=== PATIENT | female | born 1965 | race Caucasian/White ===

== ENCOUNTER → 2017-08-11 | Outpatient (CLI) | payer MEDICARE ==
[~2017-08-11] MED LIST: CRAN1TAB2 PO; CRAN400C PO; GLIP10TA9 PO; HYDR-4064 PO; IBUP-2077 PO; METF10004 PO; METR500T PO; MULT-1205 PO; PARO40TA72 PO; PREN-61 PO; QUET300XR PO; TRAZ150T79 PO
== END | disposition home or self-care (01) ==
LOC: RAH 12:26
PROVIDERS: ATTEND Family Medicine
DX: E04.9 Nontoxic goiter, unspecified (principal)
CPT/HCPCS: 76536

== ENCOUNTER → 2018-11-29 | Outpatient (CLI) | payer MEDICARE ==
[~2018-11-29] MED LIST changes: +METF-446 PO; -METF10004 PO; +QUET300T5 PO; -QUET300XR PO
== END | disposition home or self-care (01) ==
LOC: RAH 15:07
PROVIDERS: ATTEND Family Medicine
DX: Z12.31 Encounter for screening mammogram for malignant neoplasm of breast (principal)
CPT/HCPCS: 77067

== ENCOUNTER → 2020-01-31 | Outpatient (CLI) | payer OTHER ==
[2020-01-31 15:26] LABS: BASOPHILS % (AUTO) 0.7 % (0.0-5.0); EOSINOPHILS % (AUTO) 2.3 % (0.0-8.0); HEMATOCRIT 40.6 % (36-48); LYMPHOCYTES % (AUTO) 20.2 % (21.0-51.0); MEAN CORPUSCULAR HEMOGLOBIN 30.2 pg (27.0-33.0); MEAN CORPUSCULAR HGB CONC 33.7 g/dL (32.0-36.0); MEAN CORPUSCULAR VOLUME 89.4 fL (79-99); MONOCYTES % (AUTO) 6.4 % (3.0-13.0); NEUTROPHILS % (AUTO) 69.7 % (40.0-77.0); PLATELET COUNT (AUTO) 297 K/uL (130-400); RED BLOOD CELL COUNT(AUTO) 4.54 MIL/uL (4.00-5.50); RED CELL DISTRIBUTION WIDTH 11.8 % (11.0-15.5); WHITE BLOOD COUNT (AUTO) 9.2 K/uL (4.8-10.8)
[2020-01-31 15:45] LABS: ALBUMIN 2.6 g/dL (3.5-5.0); BILIRUBIN,TOTAL 0.1 mg/dL (0.2-1.0); CREATININE 1.1 mg/dL (0.5-1.5); CRP QUANTITATIVE 2.7 mg/L (0.00-9.0); POTASSIUM 5.4 mmol/L (3.5-5.1); TOTAL PROTEIN, SERUM 6.4 g/dL (6.0-8.3)
[2020-01-31 16:37] LABS: ERYTHROCYTE SEDIMENTATION RATE 26 MM/HR (0-30)
== END | disposition home or self-care (01) ==
LOC: WHH 13:30
PROVIDERS: ATTEND Family Medicine
DX: E11.622 Type 2 diabetes mellitus with other skin ulcer (principal); L97.125 Non-pressure chronic ulcer of left thigh with muscle involvement without evidence of necrosis; E11.621 Type 2 diabetes mellitus with foot ulcer; L97.512 Non-pressure chronic ulcer of other part of right foot with fat layer exposed; F31.9 Bipolar disorder, unspecified; Z90.710 Acquired absence of both cervix and uterus
CPT/HCPCS: 11042; 36415; 80053; 85025; 85651; 86140; 87070; A4450; A6022; A6196; G0463

== ENCOUNTER → 2020-02-21 | Outpatient (CLI) | payer OTHER | END | disposition home or self-care (01) | LOC: RAH 13:01 | PROVIDERS: ATTEND Family Medicine | DX: M19.071 Primary osteoarthritis, right ankle and foot (principal); M77.51 Other enthesopathy of right foot and ankle; L97.512 Non-pressure chronic ulcer of other part of right foot with fat layer exposed | CPT/HCPCS: 73630 ==

== ENCOUNTER → 2020-02-28 | Outpatient (CLI) | payer OTHER ==
[~2020-02-28] MED LIST changes: +LIDOCAINE HCL 2% JELLY 5 ML TP ONE
== END | disposition home or self-care (01) ==
LOC: WHH 10:00
PROVIDERS: ATTEND Family Medicine
DX: E11.621 Type 2 diabetes mellitus with foot ulcer (principal); L97.512 Non-pressure chronic ulcer of other part of right foot with fat layer exposed; E11.622 Type 2 diabetes mellitus with other skin ulcer; L97.125 Non-pressure chronic ulcer of left thigh with muscle involvement without evidence of necrosis; F31.9 Bipolar disorder, unspecified; Z90.710 Acquired absence of both cervix and uterus
CPT/HCPCS: 11042; A6021; A6197

== ENCOUNTER → 2020-03-06 | Outpatient (CLI) | payer OTHER ==
[~2020-03-06] MED LIST changes: -LIDOCAINE HCL 2% JELLY 5 ML TP ONE
== END | disposition home or self-care (01) ==
LOC: WHH 10:00
PROVIDERS: ATTEND Family Medicine
DX: E11.621 Type 2 diabetes mellitus with foot ulcer (principal); L97.512 Non-pressure chronic ulcer of other part of right foot with fat layer exposed; E11.622 Type 2 diabetes mellitus with other skin ulcer; L97.128 Non-pressure chronic ulcer of left thigh with other specified severity; M19.071 Primary osteoarthritis, right ankle and foot; F31.9 Bipolar disorder, unspecified; Z90.710 Acquired absence of both cervix and uterus
CPT/HCPCS: 11042; A6021; A6197

== ENCOUNTER → 2020-03-25 | Outpatient (CLI) | payer OTHER ==
[~2020-03-25] MED LIST changes: +LIDOCAINE HCL 2% JELLY 5 ML TP ONE
== END | disposition home or self-care (01) ==
LOC: WHH 10:55
PROVIDERS: ATTEND Family Medicine
DX: E11.621 Type 2 diabetes mellitus with foot ulcer (principal); L97.512 Non-pressure chronic ulcer of other part of right foot with fat layer exposed; E11.622 Type 2 diabetes mellitus with other skin ulcer; L97.125 Non-pressure chronic ulcer of left thigh with muscle involvement without evidence of necrosis; M19.071 Primary osteoarthritis, right ankle and foot; F31.9 Bipolar disorder, unspecified; Z90.710 Acquired absence of both cervix and uterus
CPT/HCPCS: 11042; A6021; A6196

== ENCOUNTER → 2020-04-07 | Outpatient (CLI) | payer OTHER | END | disposition home or self-care (01) | LOC: WHH 10:50 | PROVIDERS: ATTEND Family Medicine | DX: E11.621 Type 2 diabetes mellitus with foot ulcer (principal); L97.512 Non-pressure chronic ulcer of other part of right foot with fat layer exposed; E11.622 Type 2 diabetes mellitus with other skin ulcer; L97.125 Non-pressure chronic ulcer of left thigh with muscle involvement without evidence of necrosis; M19.071 Primary osteoarthritis, right ankle and foot; F31.9 Bipolar disorder, unspecified; Z90.710 Acquired absence of both cervix and uterus | CPT/HCPCS: G0463 ==

== ENCOUNTER → 2020-06-11 | Outpatient (CLI) | payer OTHER ==
[~2020-06-11] MED LIST changes: -LIDOCAINE HCL 2% JELLY 5 ML TP ONE
== END | disposition home or self-care (01) ==
LOC: WHH 09:25
PROVIDERS: ATTEND Podiatrist Foot & Ankle Surgery
DX: E11.621 Type 2 diabetes mellitus with foot ulcer (principal); L97.523 Non-pressure chronic ulcer of other part of left foot with necrosis of muscle; M19.071 Primary osteoarthritis, right ankle and foot; F31.9 Bipolar disorder, unspecified; Z90.710 Acquired absence of both cervix and uterus
CPT/HCPCS: G0463; L3260

== ENCOUNTER → 2020-06-18 | Outpatient (CLI) | payer OTHER ==
[~2020-06-18] MED LIST changes: +HYDR-3830 PO
== END | disposition home or self-care (01) ==
LOC: WHH 09:45
PROVIDERS: ATTEND Podiatrist Foot & Ankle Surgery
DX: E11.621 Type 2 diabetes mellitus with foot ulcer (principal); L97.523 Non-pressure chronic ulcer of other part of left foot with necrosis of muscle; E11.69 Type 2 diabetes mellitus with other specified complication; M86.9 Osteomyelitis, unspecified; E11.51 Type 2 diabetes mellitus with diabetic peripheral angiopathy without gangrene; I96 Gangrene, not elsewhere classified; M19.071 Primary osteoarthritis, right ankle and foot; E78.5 Hyperlipidemia, unspecified; F31.9 Bipolar disorder, unspecified; Z90.710 Acquired absence of both cervix and uterus
CPT/HCPCS: A4450; G0463

== ENCOUNTER 2020-06-19 15:44 | Inpatient (IN) | payer OTHER ==
[~2020-06-19] VITALS: Ht 160 cm; Wt 89.5 kg
[~2020-06-19 15:44] MED LIST changes: -HYDR-3830 PO; -MULT-1205 PO; +MULT-1283 PO
[2020-06-19 17:30] LABS: BASOPHILS % (AUTO) 0.6 % (0.0-5.0); EOSINOPHILS % (AUTO) 4.6 % (0.0-8.0); HEMATOCRIT 38.7 % (36-48); LYMPHOCYTES % (AUTO) 20.4 % (21.0-51.0); MEAN CORPUSCULAR HEMOGLOBIN 29.7 pg (27.0-33.0); MEAN CORPUSCULAR HGB CONC 33.3 g/dL (32.0-36.0); MEAN CORPUSCULAR VOLUME 89.2 fL (79-99); MONOCYTES % (AUTO) 5.9 % (3.0-13.0); NEUTROPHILS % (AUTO) 67.8 % (40.0-77.0); PLATELET COUNT (AUTO) 394 K/uL (130-400); RED BLOOD CELL COUNT(AUTO) 4.34 MIL/uL (4.00-5.50); RED CELL DISTRIBUTION WIDTH 11.4 % (11.0-15.5); WHITE BLOOD COUNT (AUTO) 10.8 K/uL (4.8-10.8)
[2020-06-19] MEDS ORDERED: LEVOFLOXACIN 500 MG/D5W 100 ML 100 ML ONE (17:35)
[2020-06-19] MEDS ORDERED: 0.9%NACL 1000ML 1,000 ML IV ONE (17:36)
[2020-06-19 17:44] LABS: INR 0.94 (0.85-1.15); PROTHROMBIN TIME 10.3 SEC (9.6-11.6)
[2020-06-19 17:45] LABS: PARTIAL THROMBOPLASTIN TIME 26.1 SEC (26.3-35.5)
[2020-06-19 17:47] LABS: CREATININE 1.1 mg/dL (0.5-1.5); POTASSIUM 4.2 mmol/L (3.5-5.1)
[2020-06-19 17:52] LABS: ALBUMIN 2.4 g/dL (3.5-5.0); BILIRUBIN,TOTAL 0.5 mg/dL (0.2-1.0); CRP QUANTITATIVE 10.2 mg/L (0.00-9.0); TOTAL PROTEIN, SERUM 6.8 g/dL (6.0-8.3)
[2020-06-19 18:00] LABS: APPEARANCE,URINE Cloudy (CLEAR); BILIRUBIN,URINE Negative (NEGATIVE); COLOR,URINE Yellow (YELLOW); GLUCOSE, URINE (UA) 250 mg/dL (NEGATIVE); KETONES,URINE Negative (NEGATIVE); LEUKOCYTE ESTERASE ,URINE Small (NEGATIVE); NITRATE,URINE Negative (NEGATIVE); OCCULT BLOOD,URINE Negative (NEGATIVE); PROTEIN,URINE >=1000 mg/dL (NEGATIVE); UROBILINOGEN,URINE 0.2 mg/dL (0.2-1.0)
[2020-06-19 18:10] LABS: BACTERIA,URINE Few /HPF (None Seen); MUCUS,URINE Few LPF (None Seen); SQUAMOUS EPITHELIAL CELL,UR Moderate /HPF (0-2)
[2020-06-19 18:34] LABS: ERYTHROCYTE SEDIMENTATION RATE 62 MM/HR (0-30)
[2020-06-19] MEDS ORDERED: ACETAMINOPHEN 325 MG TAB PO PRN (20:00)
[2020-06-19] MEDS ORDERED: ZOLPIDEM TARTRATE 5 MG TAB PO PRN (20:00)
[2020-06-19] MEDS ORDERED: GUAIFENESIN-DM 200/20 MG 10 ML PO PRN (20:00)
[2020-06-19] MEDS ORDERED: MAG/ALUM/SIMETH 30 ML UDCUP PO PRN (20:00)
[2020-06-19] MEDS: 0.9%NACL 1000ML 1,000 ML IV SCH (20:00)
[2020-06-19] MEDS ORDERED: MORPHINE 4 MG SYG IV PRN (20:00)
[2020-06-19] MEDS ORDERED: DiphenhydrAMINE HCL 50 MG/ML VIAL IV PRN (20:00)
[2020-06-19] MEDS ORDERED: LACTULOSE 20 GM/30 ML UDCUP PO PRN (20:00)
[2020-06-19] MEDS ORDERED: HYDROMORPHONE 0.5 MG SYG (0.5MG/0.5ML) IV PRN (20:30)
[2020-06-19] MEDS: METRONIDAZOLE 500MG/100ML BAG 100 ML IV SCH (21:00)
[2020-06-20] MEDS ORDERED: 0.9%NACL 1000ML 1,000 ML IV ONE ×2 (00:52→17:21)
[2020-06-20] MEDS ORDERED: MORPHINE 4 MG SYG ONE (00:54)
[2020-06-20] MEDS ORDERED: INSULIN HUMULIN R 100 UNIT/ML 3ML ONE ×3 (00:55→14:11)
[2020-06-20] MEDS ORDERED: TRAZODONE HCL 100 MG TABLET PO SCH (03:45)
[2020-06-20] MEDS ORDERED: TRAZODONE HCL 50 MG TAB ONE (03:48)
[2020-06-20] MEDS ORDERED: METOPROLOL TARTRATE 1 MG/ML 5ML VIAL IV ONE (03:50)
[2020-06-20] MEDS ORDERED: METRONIDAZOLE 500MG/100ML BAG 100 ML ONE ×3 (05:08→21:09)
[2020-06-20] MEDS: FAMOTIDINE 20MG VIAL IV SCH (09:00)
[2020-06-20] MEDS ORDERED: VANCOMYCIN PROTOCOL PER PHARMACY IV SCH (09:00)
[2020-06-20] MEDS ORDERED: DEXTROSE 50%-WATER 50 ML DISP.SYRIN IV PRN (09:15)
[2020-06-20] MEDS ORDERED: GLUCAGON 1MG KIT 1 MG ML IM PRN (09:15)
[2020-06-20] MEDS ORDERED: VANCOMYCIN 1G/250ML KIT 250 ML IV ONE ×2 (09:18→12:45)
[2020-06-20] MEDS ORDERED: VANCOMYCIN 1G/250ML KIT 250 ML IV SCH (09:52)
[2020-06-20] MEDS ORDERED: LORAZEPAM 2 MG/ML 1 ML VIAL ONE (09:56)
[2020-06-20] MEDS ORDERED: FAMOTIDINE 20MG VIAL IV ONE (10:10)
[2020-06-20 10:17] LABS: CREATINE KINASE, TOTAL 67 U/L (21-232); MYOGLOBIN 43 ng/mL (10-92); TROPONIN I < 0.04 ng/mL (0.00-0.06)
[2020-06-20] MEDS: ASPIRIN 81MG CHEW TAB PO SCH (11:09)
[2020-06-20] MEDS ORDERED: COMPOUND IV REFRIGERATED 1 EACH IVSOLN MISC PRN (13:00)
[2020-06-20] MEDS: ENOXAPARIN SODIUM 30 MG/0.3 ML SQ SCH (13:00)
[2020-06-20] MEDS ORDERED: ENOXAPARIN SODIUM 30 MG/0.3 ML SQ ONE (13:55)
[2020-06-20] MEDS: HYDROXYZINE 10 MG TABLET PO SCH (15:00)
[2020-06-20] MEDS: 0.9%NACL 1000ML 1,000 ML IV SCH (16:00)
[2020-06-20] MEDS ORDERED: DIPH,PERTUSS(ACELL),TET VAC/PF 0.5 ML VIAL IM ONE (16:15)
[2020-06-20] MEDS ORDERED: LEVOFLOXACIN 500 MG/D5W 100 ML 100 ML ONE (17:20)
[2020-06-20] MEDS: LEVOFLOXACIN 500 MG/D5W 100 ML 100 ML IV SCH (18:00)
[2020-06-20] MEDS: METRONIDAZOLE 500MG/100ML BAG 100 ML IV SCH (21:00)
[2020-06-20] MEDS: VANCOMYCIN 750MG + NS 250 ML IV SCH ×2 (21:00)
[2020-06-20] MEDS: INSULIN HUMULIN R 100 UNIT/ML 3ML SQ SCH ×2 (21:00)
[2020-06-20] MEDS ORDERED: QUETIAPINE FUMARATE 100 MG TAB PO SCH (21:00)
[2020-06-20 23:00] VITALS: BP 179/100
[2020-06-20] MEDS: METOPROLOL TARTRATE 1 MG/ML 5ML VIAL IV PRN (23:58)
[2020-06-21] MEDS ORDERED: HYDR-3830 PO (01:03)
[2020-06-21] MEDS: 0.9%NACL 1000ML 1,000 ML IV SCH ×2 (02:00→17:40)
[2020-06-21 04:00] VITALS: BP 160/92
[2020-06-21] MEDS: METRONIDAZOLE 500MG/100ML BAG 100 ML IV SCH ×3 (05:10→21:44)
[2020-06-21 05:55] LABS: HEMATOCRIT 34.4 % (36-48); MEAN CORPUSCULAR HEMOGLOBIN 29.5 pg (27.0-33.0); MEAN CORPUSCULAR HGB CONC 33.4 g/dL (32.0-36.0); MEAN CORPUSCULAR VOLUME 88.2 fL (79-99); RED BLOOD CELL COUNT(AUTO) 3.9 MIL/uL (4.00-5.50); RED CELL DISTRIBUTION WIDTH 11.3 % (11.0-15.5); WHITE BLOOD COUNT (AUTO) 8.9 K/uL (4.8-10.8)
[2020-06-21] MEDS: INSULIN HUMULIN R 100 UNIT/ML 3ML SQ SCH ×7 (06:00→21:52)
[2020-06-21 06:19] LABS: CREATININE 0.9 mg/dL (0.5-1.5); POTASSIUM 3.9 mmol/L (3.5-5.1)
[2020-06-21 08:00] VITALS: BP 189/108
[2020-06-21] MEDS: ASPIRIN 81MG CHEW TAB PO SCH (08:43)
[2020-06-21] MEDS: FAMOTIDINE 20MG VIAL IV SCH (08:43)
[2020-06-21] MEDS: ENOXAPARIN SODIUM 30 MG/0.3 ML SQ SCH (08:44)
[2020-06-21] MEDS ORDERED: HYDROCHLOROTHIAZIDE 25 MG TABLET PO SCH (09:45)
[2020-06-21] MEDS ORDERED: AMLODIPINE 5 MG TAB PO SCH (09:45)
[2020-06-21] MEDS ORDERED: CLONIDINE HCL 0.1 MG TABLET PO PRN (09:45)
[2020-06-21] MEDS ORDERED: MULTIVITAMIN WITH MINERALS TABLET PO SCH (10:50)
[2020-06-21] MEDS: METOPROLOL TARTRATE 25 MG TAB PO SCH ×2 (11:57→21:47)
[2020-06-21 12:00] VITALS: BP 176/95
[2020-06-21] MEDS: MULTIVITAMIN WITH MINERALS TABLET PO SCH ×2 (12:43→13:09)
[2020-06-21] MEDS: VANCOMYCIN 750MG + NS 250 ML IV SCH ×4 (13:09→23:05)
[2020-06-21 16:00] VITALS: BP 165/82
[2020-06-21] MEDS: LEVOFLOXACIN 500 MG/D5W 100 ML 100 ML IV SCH (17:25)
[2020-06-21] MEDS: HYDROCODONE/ACETAMINOPHEN 7.5/325 MG TAB PO PRN (17:26)
[2020-06-21] MEDS: ONDANSETRON 4MG INJ IV PRN ×2 (17:38→22:58)
[2020-06-21] MEDS: HYDROXYZINE 10 MG TABLET PO SCH (17:38)
[2020-06-21 20:15] VITALS: BP 159/96
[2020-06-21] MEDS: PAROXETINE HCL 20 MG TABLET PO SCH (21:00)
[2020-06-21] MEDS ORDERED: QUETIAPINE FUMARATE 100 MG TAB PO SCH (21:00)
[2020-06-21] MEDS: QUETIAPINE FUMARATE 100 MG TAB PO SCH (21:46)
[2020-06-21] MEDS: TRAZODONE HCL 100 MG TABLET PO SCH (21:47)
[2020-06-22 01:23] VITALS: BP 159/84
[2020-06-22] MEDS ORDERED: VANCOMYCIN 1G 1.5 GM in 0.9% NACL 250ML 250 ML IV SCH (05:00)
[2020-06-22 05:21] VITALS: BP 158/85
[2020-06-22 05:50] LABS: HEMATOCRIT 33.8 % (36-48); MEAN CORPUSCULAR HEMOGLOBIN 29.5 pg (27.0-33.0); MEAN CORPUSCULAR VOLUME 86.7 fL (79-99); RED BLOOD CELL COUNT(AUTO) 3.9 MIL/uL (4.00-5.50); RED CELL DISTRIBUTION WIDTH 11.2 % (11.0-15.5); WHITE BLOOD COUNT (AUTO) 8.4 K/uL (4.8-10.8)
[2020-06-22 06:09] LABS: CREATININE 0.8 mg/dL (0.5-1.5); POTASSIUM 3.1 mmol/L (3.5-5.1)
[2020-06-22] MEDS: INSULIN HUMULIN R 100 UNIT/ML 3ML SQ SCH ×4 (06:35→21:41)
[2020-06-22] MEDS: METRONIDAZOLE 500MG/100ML BAG 100 ML IV SCH ×3 (06:35→21:29)
[2020-06-22] MEDS: 0.9%NACL 1000ML 1,000 ML IV SCH ×2 (06:35→08:00)
[2020-06-22 08:00] VITALS: BP 163/79
[2020-06-22] MEDS: METOPROLOL TARTRATE 25 MG TAB PO SCH ×2 (08:00→21:00)
[2020-06-22] MEDS ORDERED: AMLODIPINE 5 MG TAB PO SCH (09:00)
[2020-06-22] MEDS: MULTIVITAMIN WITH MINERALS TABLET PO SCH (10:41)
[2020-06-22] MEDS: HYDROCHLOROTHIAZIDE 25 MG TABLET PO SCH (10:42)
[2020-06-22] MEDS: HYDROXYZINE 10 MG TABLET PO SCH ×2 (10:42→15:00)
[2020-06-22] MEDS: ASPIRIN 81MG CHEW TAB PO SCH (10:42)
[2020-06-22] MEDS: ENOXAPARIN SODIUM 30 MG/0.3 ML SQ SCH (10:43)
[2020-06-22] MEDS: FAMOTIDINE 20MG VIAL IV SCH (10:43)
[2020-06-22] MEDS ORDERED: VANCOMYCIN 1G 1.25 GM in 0.9% NACL 250ML 250 ML IV SCH (11:00)
[2020-06-22] MEDS: ONDANSETRON 4MG INJ IV PRN ×2 (11:26→20:44)
[2020-06-22 12:00] VITALS: BP 169/78
[2020-06-22] MEDS: PRENATAL VITAMIN RX TABLET PO SCH (12:20)
[2020-06-22] MEDS: GLIPIZIDE XL 5MG TAB PO SCH (12:20)
[2020-06-22 16:00] VITALS: BP 185/53
[2020-06-22] MEDS: LEVOFLOXACIN 500 MG/D5W 100 ML 100 ML IV SCH (16:41)
[2020-06-22 20:00] VITALS: BP 184/103
[2020-06-22] MEDS: PAROXETINE HCL 20 MG TABLET PO SCH (21:00)
[2020-06-22] MEDS: QUETIAPINE FUMARATE 100 MG TAB PO SCH (21:00)
[2020-06-22] MEDS: TRAZODONE HCL 100 MG TABLET PO SCH (21:00)
[2020-06-22] MEDS: METOPROLOL TARTRATE 1 MG/ML 5ML VIAL IV PRN (22:14)
[2020-06-22] MEDS ORDERED: PROMETHAZINE HCL 25 MG/ML 1ML AMPULE IM SCH (23:00)
[2020-06-23] VITALS (11 sets, daily range): BP systolic 152–174; BP diastolic 77–116
[2020-06-23] MEDS: VANCOMYCIN 1G 1.25 GM in 0.9% NACL 250ML 250 ML IV SCH ×3 (00:20→20:55)
[2020-06-23] MEDS: 0.9%NACL 1000ML 1,000 ML IV SCH ×2 (00:22→04:00)
[2020-06-23] MEDS: INSULIN HUMULIN R 100 UNIT/ML 3ML SQ SCH ×4 (06:03→21:04)
[2020-06-23] MEDS: METRONIDAZOLE 500MG/100ML BAG 100 ML IV SCH ×3 (06:04→20:55)
[2020-06-23] MEDS ORDERED: 0.9% NACL 500ML IV.SOLN 500 ML IV SCH (08:00)
[2020-06-23] MEDS: GLIPIZIDE XL 5MG TAB PO SCH (08:00)
[2020-06-23 08:26] LABS: HEMATOCRIT 38.9 % (36-48); MEAN CORPUSCULAR HEMOGLOBIN 29.3 pg (27.0-33.0); MEAN CORPUSCULAR HGB CONC 33.7 g/dL (32.0-36.0); RED BLOOD CELL COUNT(AUTO) 4.47 MIL/uL (4.00-5.50); RED CELL DISTRIBUTION WIDTH 11.4 % (11.0-15.5)
[2020-06-23 08:36] LABS: POTASSIUM 3.5 mmol/L (3.5-5.1)
[2020-06-23 08:38] LABS: INR 0.98 (0.85-1.15); PROTHROMBIN TIME 10.7 SEC (9.6-11.6)
[2020-06-23 08:39] LABS: PARTIAL THROMBOPLASTIN TIME 28.5 SEC (26.3-35.5)
[2020-06-23] MEDS: PRENATAL VITAMIN RX TABLET PO SCH (09:00)
[2020-06-23] MEDS: BALSAM PERU/CASTOR OIL 60 GM TUBE TP SCH ×2 (09:00→21:00)
[2020-06-23] MEDS: ENOXAPARIN SODIUM 30 MG/0.3 ML SQ SCH (09:00)
[2020-06-23] MEDS: ASPIRIN 81MG CHEW TAB PO SCH (12:30)
[2020-06-23] MEDS: HYDROXYZINE 10 MG TABLET PO SCH ×2 (12:30→15:00)
[2020-06-23] MEDS: FAMOTIDINE 20MG VIAL IV SCH (12:30)
[2020-06-23] MEDS: HYDROCHLOROTHIAZIDE 25 MG TABLET PO SCH (12:31)
[2020-06-23] MEDS: LOSARTAN 50 MG TABLET PO SCH (12:31)
[2020-06-23] MEDS: AMLODIPINE 5 MG TAB PO SCH (12:32)
[2020-06-23] MEDS: MULTIVITAMIN WITH MINERALS TABLET PO SCH (12:33)
[2020-06-23] MEDS ORDERED: IODIXANOL 320 MG/ML 100 ML VIAL ONE ×2 (14:29→15:28)
[2020-06-23] MEDS ORDERED: NITROGLYCERIN 2 MG VIAL IV ONE (14:29)
[2020-06-23] MEDS ORDERED: MIDAZOLAM HCL 1 MG/ML 2ML VIAL ONE (14:30)
[2020-06-23] MEDS ORDERED: FENTANYL CITRATE PF 50 MCG/1 ML 2ML VIAL ONE (14:30)
[2020-06-23] MEDS ORDERED: LIDOCAINE HCL 400MG/20ML VIAL ONE (14:30)
[2020-06-23] MEDS ORDERED: ONDANSETRON 4MG INJ ONE ×2 (14:56→15:52)
[2020-06-23] MEDS ORDERED: HEPARIN 10,000 UNIT/10ML (1,000 UNIT/ML) VIAL ONE (15:09)
[2020-06-23] MEDS ORDERED: LABETALOL 20MG VIAL IV ONE (15:36)
[2020-06-23] MEDS ORDERED: 0.9%NACL 1000ML 1,000 ML IV SCH (16:00)
[2020-06-23] MEDS ORDERED: NITROGLYCERIN 0.4 MG SL TAB SL PRN (16:00)
[2020-06-23] MEDS ORDERED: HYDRALAZINE 20MG/ML VIAL IV PRN (16:00)
[2020-06-23] MEDS: LEVOFLOXACIN 500 MG/D5W 100 ML 100 ML IV SCH (17:01)
[2020-06-23] MEDS: HYDROCODONE/ACETAMINOPHEN 7.5/325 MG TAB PO PRN (17:03)
[2020-06-23] MEDS: ONDANSETRON 4MG INJ IV PRN ×2 (17:03→22:12)
[2020-06-23] MEDS: QUETIAPINE FUMARATE 100 MG TAB PO SCH (20:55)
[2020-06-23] MEDS: PAROXETINE HCL 20 MG TABLET PO SCH (20:55)
[2020-06-23] MEDS: TRAZODONE HCL 100 MG TABLET PO SCH (20:56)
[2020-06-24] VITALS (21 sets, daily range): BP systolic 139–173; BP diastolic 63–106
[2020-06-24] MEDS: METRONIDAZOLE 500MG/100ML BAG 100 ML IV SCH ×3 (05:28→20:55)
[2020-06-24] MEDS: INSULIN HUMULIN R 100 UNIT/ML 3ML SQ SCH ×4 (06:59→21:00)
[2020-06-24 07:18] LABS: HEMATOCRIT 36.4 % (36-48); MEAN CORPUSCULAR HEMOGLOBIN 29.6 pg (27.0-33.0); MEAN CORPUSCULAR HGB CONC 34.1 g/dL (32.0-36.0); MEAN CORPUSCULAR VOLUME 86.9 fL (79-99); RED BLOOD CELL COUNT(AUTO) 4.19 MIL/uL (4.00-5.50); RED CELL DISTRIBUTION WIDTH 11.6 % (11.0-15.5); WHITE BLOOD COUNT (AUTO) 10.4 K/uL (4.8-10.8)
[2020-06-24 07:28] LABS: CREATININE 1.2 mg/dL (0.5-1.5); POTASSIUM 3.4 mmol/L (3.5-5.1)
[2020-06-24] MEDS: VANCOMYCIN 1G 1.25 GM in 0.9% NACL 250ML 250 ML IV SCH (08:00)
[2020-06-24] MEDS: ENOXAPARIN SODIUM 30 MG/0.3 ML SQ SCH (09:00)
[2020-06-24] MEDS: BALSAM PERU/CASTOR OIL 60 GM TUBE TP SCH ×2 (09:00→21:00)
[2020-06-24] MEDS: AMLODIPINE 5 MG TAB PO SCH (09:19)
[2020-06-24] MEDS: HYDROCHLOROTHIAZIDE 25 MG TABLET PO SCH (09:19)
[2020-06-24] MEDS: PRENATAL VITAMIN RX TABLET PO SCH (09:19)
[2020-06-24] MEDS: HYDROXYZINE 10 MG TABLET PO SCH ×2 (09:20→15:00)
[2020-06-24] MEDS: FAMOTIDINE 20MG VIAL IV SCH (09:20)
[2020-06-24] MEDS: ASPIRIN 81MG CHEW TAB PO SCH (09:20)
[2020-06-24] MEDS: LOSARTAN 50 MG TABLET PO SCH (09:20)
[2020-06-24] MEDS: GLIPIZIDE XL 5MG TAB PO SCH (09:23)
[2020-06-24] MEDS ORDERED: LORAZEPAM 2 MG/ML 1 ML VIAL IVP PRN (10:15)
[2020-06-24] MEDS ORDERED: MAGNESIUM 2GM PREMIX 50ML 50 ML IV PRN (10:30)
[2020-06-24] MEDS ORDERED: LIDOCAINE HCL-MPF 1% 2ML VIAL IV PRN ×2 (10:30)
[2020-06-24] MEDS ORDERED: POTASSIUM CHLORIDE 20MEQ/100ML 100 ML IV PRN ×2 (10:30)
[2020-06-24] MEDS ORDERED: POTASSIUM CHLORIDE 10% ELIXIR 20 MEQ/15 ML UDCUP PO PRN (10:30)
[2020-06-24] MEDS ORDERED: BUPIVACAINE/PF 0.5% 30ML VIAL ONE (15:29)
[2020-06-24] MEDS ORDERED: LIDOCAINE HCL 1% 20 ML VIAL ONE (15:29)
[2020-06-24] MEDS ORDERED: 0.9%NACL 1000ML 1,000 ML IV ONE (15:33)
[2020-06-24] MEDS ORDERED: PROPOFOL 10 MG/ML 20ML VIAL IV ONE (15:45)
[2020-06-24] MEDS ORDERED: ONDANSETRON 4MG INJ ONE (15:45)
[2020-06-24] MEDS ORDERED: LIDOCAINE PF 100MG/5ML (2%) SYRINGE 5ML ONE (15:45)
[2020-06-24] MEDS ORDERED: MIDAZOLAM HCL 1 MG/ML 2ML VIAL ONE (15:45)
[2020-06-24] MEDS ORDERED: FENTANYL CITRATE PF 50 MCG/1 ML 2ML VIAL ONE (15:46)
[2020-06-24] MEDS ORDERED: MEPERIDINE-PF 25 MG/ML SYG ONE (15:47)
[2020-06-24] MEDS ORDERED: KETAMINE HCL 50MG/ML 10ML VIAL IJ ONE (15:51)
[2020-06-24] MEDS: ONDANSETRON 4MG INJ IV PRN (18:10)
[2020-06-24] MEDS: LEVOFLOXACIN 500 MG/D5W 100 ML 100 ML IV SCH (18:34)
[2020-06-24] MEDS: PAROXETINE HCL 20 MG TABLET PO SCH ×2 (20:58→21:00)
[2020-06-24] MEDS: TRAZODONE HCL 100 MG TABLET PO SCH ×2 (20:58→21:00)
[2020-06-24] MEDS: QUETIAPINE FUMARATE 100 MG TAB PO SCH ×2 (20:58→21:00)
[2020-06-24] MEDS: INSULIN GLARGINE 100 UNITS/ML 10 ML VIAL SQ SCH ×2 (21:00→21:01)
[2020-06-24] MEDS ORDERED: PANTOPRAZOLE 40 MG/VIAL IVP SCH (21:00)
[2020-06-25] VITALS (7 sets, daily range): BP systolic 142–188; BP diastolic 69–97
[2020-06-25 05:46] LABS: HEMATOCRIT 36.5 % (36-48); MEAN CORPUSCULAR HEMOGLOBIN 29.3 pg (27.0-33.0); MEAN CORPUSCULAR HGB CONC 33.2 g/dL (32.0-36.0); MEAN CORPUSCULAR VOLUME 88.4 fL (79-99); RED BLOOD CELL COUNT(AUTO) 4.13 MIL/uL (4.00-5.50); RED CELL DISTRIBUTION WIDTH 11.5 % (11.0-15.5); WHITE BLOOD COUNT (AUTO) 9.4 K/uL (4.8-10.8)
[2020-06-25 06:09] LABS: ALBUMIN 1.9 g/dL (3.5-5.0); BILIRUBIN,TOTAL 0.2 mg/dL (0.2-1.0); MAGNESIUM 1.7 mg/dL (1.80-2.40); POTASSIUM 3.2 mmol/L (3.5-5.1); TOTAL PROTEIN, SERUM 5.5 g/dL (6.0-8.3)
[2020-06-25] MEDS: INSULIN HUMULIN R 100 UNIT/ML 3ML SQ SCH ×4 (07:30→21:03)
[2020-06-25] MEDS: BALSAM PERU/CASTOR OIL 60 GM TUBE TP SCH ×2 (09:00→21:04)
[2020-06-25] MEDS: HYDROCHLOROTHIAZIDE 25 MG TABLET PO SCH (10:36)
[2020-06-25] MEDS: ASPIRIN 81MG CHEW TAB PO SCH (10:37)
[2020-06-25] MEDS: MULTIVITAMIN WITH MINERALS TABLET PO SCH (10:37)
[2020-06-25] MEDS: LOSARTAN 50 MG TABLET PO SCH (10:38)
[2020-06-25] MEDS: AMLODIPINE 5 MG TAB PO SCH (10:38)
[2020-06-25] MEDS: HYDROXYZINE 10 MG TABLET PO SCH ×2 (10:38→17:20)
[2020-06-25] MEDS: GLIPIZIDE XL 5MG TAB PO SCH (10:39)
[2020-06-25] MEDS: ENOXAPARIN SODIUM 30 MG/0.3 ML SQ SCH (10:40)
[2020-06-25] MEDS: KCL 20 MEQ ERTAB PO PRN ×3 (10:41→17:20)
[2020-06-25] MEDS: PRENATAL VITAMIN RX TABLET PO SCH (10:46)
[2020-06-25] MEDS: METRONIDAZOLE 500MG/100ML BAG 100 ML IV SCH ×2 (13:23→20:46)
[2020-06-25] MEDS: ESOMEPRAZOLE SODIUM 40 MG VIAL IVP SCH ×2 (13:23→20:50)
[2020-06-25] MEDS: HYDROCODONE/ACETAMINOPHEN 7.5/325 MG TAB PO PRN ×2 (14:36→23:36)
[2020-06-25] MEDS: ONDANSETRON 4MG INJ IV PRN ×2 (14:58→20:46)
[2020-06-25] MEDS: LEVOFLOXACIN 500 MG/D5W 100 ML 100 ML IV SCH (17:21)
[2020-06-25] MEDS: VANCOMYCIN 1G 1.25 GM in 0.9% NACL 250ML 250 ML IV SCH (20:46)
[2020-06-25] MEDS: TRAZODONE HCL 100 MG TABLET PO SCH (20:49)
[2020-06-25] MEDS: PAROXETINE HCL 20 MG TABLET PO SCH (20:49)
[2020-06-25] MEDS: QUETIAPINE FUMARATE 100 MG TAB PO SCH (20:50)
[2020-06-25] MEDS: INSULIN GLARGINE 100 UNITS/ML 10 ML VIAL SQ SCH (21:04)
[2020-06-26 05:16] VITALS: BP 138/69
[2020-06-26] MEDS: METRONIDAZOLE 500MG/100ML BAG 100 ML IV SCH ×3 (05:21→20:16)
[2020-06-26] MEDS: ONDANSETRON 4MG INJ IV PRN (05:22)
[2020-06-26 05:32] LABS: ALBUMIN 1.7 g/dL (3.5-5.0); BILIRUBIN,TOTAL 0.1 mg/dL (0.2-1.0); CREATININE 1.3 mg/dL (0.5-1.5); MAGNESIUM 2.1 mg/dL (1.80-2.40); POTASSIUM 3.6 mmol/L (3.5-5.1); TOTAL PROTEIN, SERUM 5.1 g/dL (6.0-8.3)
[2020-06-26] MEDS: KCL 20 MEQ ERTAB PO PRN ×2 (06:16→10:41)
[2020-06-26] MEDS: INSULIN HUMULIN R 100 UNIT/ML 3ML SQ SCH ×4 (06:17→20:19)
[2020-06-26 07:30] VITALS: BP 128/70
[2020-06-26] MEDS: PRENATAL VITAMIN RX TABLET PO SCH (09:00)
[2020-06-26] MEDS: MULTIVITAMIN WITH MINERALS TABLET PO SCH (09:00)
[2020-06-26] MEDS: BALSAM PERU/CASTOR OIL 60 GM TUBE TP SCH ×2 (09:00→21:00)
[2020-06-26] MEDS: HYDROCHLOROTHIAZIDE 25 MG TABLET PO SCH (10:38)
[2020-06-26] MEDS: LOSARTAN 50 MG TABLET PO SCH (10:39)
[2020-06-26] MEDS: GLIPIZIDE XL 5MG TAB PO SCH (10:40)
[2020-06-26] MEDS: ASPIRIN 81MG CHEW TAB PO SCH (10:40)
[2020-06-26] MEDS: AMLODIPINE 5 MG TAB PO SCH (10:41)
[2020-06-26] MEDS: HYDROXYZINE 10 MG TABLET PO SCH ×2 (10:41→15:00)
[2020-06-26] MEDS: ESOMEPRAZOLE SODIUM 40 MG VIAL IVP SCH ×2 (10:43→20:17)
[2020-06-26] MEDS: ENOXAPARIN SODIUM 30 MG/0.3 ML SQ SCH (10:46)
[2020-06-26] MEDS: VANCOMYCIN 1G 1.25 GM in 0.9% NACL 250ML 250 ML IV SCH ×2 (10:57→20:16)
[2020-06-26 12:07] VITALS: BP 140/76
[2020-06-26 16:08] VITALS: BP 142/72
[2020-06-26] MEDS: LEVOFLOXACIN 500 MG/D5W 100 ML 100 ML IV SCH (17:33)
[2020-06-26 20:00] VITALS: BP 146/61
[2020-06-26] MEDS: QUETIAPINE FUMARATE 100 MG TAB PO SCH (20:17)
[2020-06-26] MEDS: TRAZODONE HCL 100 MG TABLET PO SCH (20:17)
[2020-06-26] MEDS: PAROXETINE HCL 20 MG TABLET PO SCH (20:17)
[2020-06-26] MEDS: INSULIN GLARGINE 100 UNITS/ML 10 ML VIAL SQ SCH (20:18)
[2020-06-26] MEDS: HYDROCODONE/ACETAMINOPHEN 7.5/325 MG TAB PO PRN (20:43)
[2020-06-26 23:33] VITALS: BP 114/59
[2020-06-27 04:00] VITALS: BP 118/59
[2020-06-27] MEDS: METRONIDAZOLE 500MG/100ML BAG 100 ML IV SCH ×3 (04:38→22:19)
[2020-06-27 05:15] LABS: BASOPHILS % (AUTO) 0.4 % (0.0-5.0); EOSINOPHILS % (AUTO) 3.3 % (0.0-8.0); LYMPHOCYTES % (AUTO) 16.5 % (21.0-51.0); MEAN CORPUSCULAR HEMOGLOBIN 29.2 pg (27.0-33.0); MEAN CORPUSCULAR HGB CONC 33.1 g/dL (32.0-36.0); MEAN CORPUSCULAR VOLUME 88.5 fL (79-99); MONOCYTES % (AUTO) 9.5 % (3.0-13.0); NEUTROPHILS % (AUTO) 69.6 % (40.0-77.0); PLATELET COUNT (AUTO) 300 K/uL (130-400); RED BLOOD CELL COUNT(AUTO) 4.07 MIL/uL (4.00-5.50); RED CELL DISTRIBUTION WIDTH 11.5 % (11.0-15.5); WHITE BLOOD COUNT (AUTO) 9.8 K/uL (4.8-10.8)
[2020-06-27 05:49] LABS: ALBUMIN 1.9 g/dL (3.5-5.0); BILIRUBIN,TOTAL 0.1 mg/dL (0.2-1.0); CREATININE 1.2 mg/dL (0.5-1.5); MAGNESIUM 1.8 mg/dL (1.80-2.40); POTASSIUM 3.6 mmol/L (3.5-5.1); TOTAL PROTEIN, SERUM 5.7 g/dL (6.0-8.3)
[2020-06-27] MEDS: INSULIN HUMULIN R 100 UNIT/ML 3ML SQ SCH ×4 (07:30→22:36)
[2020-06-27 07:53] VITALS: BP 172/85
[2020-06-27] MEDS: VANCOMYCIN 1G 1.25 GM in 0.9% NACL 250ML 250 ML IV SCH (09:00)
[2020-06-27] MEDS: BALSAM PERU/CASTOR OIL 60 GM TUBE TP SCH ×2 (09:00→21:00)
[2020-06-27] MEDS: PRENATAL VITAMIN RX TABLET PO SCH (09:00)
[2020-06-27] MEDS: MULTIVITAMIN WITH MINERALS TABLET PO SCH (09:00)
[2020-06-27] MEDS: ENOXAPARIN SODIUM 30 MG/0.3 ML SQ SCH (10:59)
[2020-06-27] MEDS: HYDROCHLOROTHIAZIDE 25 MG TABLET PO SCH (10:59)
[2020-06-27] MEDS: HYDROXYZINE 10 MG TABLET PO SCH ×2 (10:59→14:52)
[2020-06-27] MEDS: GLIPIZIDE XL 5MG TAB PO SCH (10:59)
[2020-06-27] MEDS: ASPIRIN 81MG CHEW TAB PO SCH (11:01)
[2020-06-27] MEDS: AMLODIPINE 5 MG TAB PO SCH (11:01)
[2020-06-27] MEDS: PANTOPRAZOLE 40 MG TAB DR PO SCH ×2 (11:01→22:20)
[2020-06-27] MEDS: ATORVASTATIN 40 MG TABLET PO SCH (11:02)
[2020-06-27] MEDS: INSULIN GLARGINE 100 UNITS/ML 10 ML VIAL SQ SCH ×2 (11:03→22:38)
[2020-06-27] MEDS: LOSARTAN 50 MG TABLET PO SCH (11:04)
[2020-06-27 11:40] VITALS: BP 167/97
[2020-06-27] MEDS: ONDANSETRON 4MG INJ IV PRN ×2 (15:02→17:14)
[2020-06-27 17:09] VITALS: BP 171/93
[2020-06-27] MEDS: LEVOFLOXACIN 500 MG/D5W 100 ML 100 ML IV SCH (17:14)
[2020-06-27] MEDS: HYDROCODONE/ACETAMINOPHEN 7.5/325 MG TAB PO PRN ×2 (17:29→22:39)
[2020-06-27 20:00] VITALS: BP 170/85
[2020-06-27] MEDS: TRAZODONE HCL 100 MG TABLET PO SCH (22:20)
[2020-06-27] MEDS: QUETIAPINE FUMARATE 100 MG TAB PO SCH (22:20)
[2020-06-27] MEDS: PAROXETINE HCL 20 MG TABLET PO SCH (22:21)
[2020-06-27] MEDS: VANCOMYCIN 1G/250ML KIT 250 ML IV SCH (22:22)
[2020-06-28] VITALS: BP 136/71
[2020-06-28 04:00] VITALS: BP 119/78
[2020-06-28 06:08] LABS: HEMATOCRIT 30.9 % (36-48); MEAN CORPUSCULAR HEMOGLOBIN 30.1 pg (27.0-33.0); MEAN CORPUSCULAR VOLUME 88.5 fL (79-99); RED BLOOD CELL COUNT(AUTO) 3.49 MIL/uL (4.00-5.50); RED CELL DISTRIBUTION WIDTH 11.6 % (11.0-15.5); WHITE BLOOD COUNT (AUTO) 9.1 K/uL (4.8-10.8)
[2020-06-28] MEDS: METRONIDAZOLE 500MG/100ML BAG 100 ML IV SCH ×2 (06:31→12:16)
[2020-06-28] MEDS: INSULIN HUMULIN R 100 UNIT/ML 3ML SQ SCH ×2 (06:32→12:18)
[2020-06-28 07:04] LABS: CREATININE 1.2 mg/dL (0.5-1.5); POTASSIUM 3.5 mmol/L (3.5-5.1)
[2020-06-28 07:43] VITALS: BP 126/75
[2020-06-28] MEDS: GLIPIZIDE XL 5MG TAB PO SCH (10:54)
[2020-06-28] MEDS: HYDROCHLOROTHIAZIDE 25 MG TABLET PO SCH (10:55)
[2020-06-28] MEDS: ENOXAPARIN SODIUM 30 MG/0.3 ML SQ SCH (10:55)
[2020-06-28] MEDS: ASPIRIN 81MG CHEW TAB PO SCH (10:55)
[2020-06-28] MEDS: PRENATAL VITAMIN RX TABLET PO SCH (10:55)
[2020-06-28] MEDS: AMLODIPINE 5 MG TAB PO SCH (10:55)
[2020-06-28] MEDS: HYDROXYZINE 10 MG TABLET PO SCH (10:56)
[2020-06-28] MEDS: ATORVASTATIN 40 MG TABLET PO SCH (10:56)
[2020-06-28] MEDS: PANTOPRAZOLE 40 MG TAB DR PO SCH (10:56)
[2020-06-28] MEDS: MULTIVITAMIN WITH MINERALS TABLET PO SCH (10:56)
[2020-06-28] MEDS: LOSARTAN 50 MG TABLET PO SCH (10:56)
[2020-06-28] MEDS: INSULIN GLARGINE 100 UNITS/ML 10 ML VIAL SQ SCH (10:58)
[2020-06-28] MEDS: VANCOMYCIN 1G/250ML KIT 250 ML IV SCH (10:58)
[2020-06-28] MEDS: BALSAM PERU/CASTOR OIL 60 GM TUBE TP SCH (10:59)
[2020-06-28] MEDS: KCL 20 MEQ ERTAB PO PRN (11:00)
[2020-06-28 11:26] VITALS: BP 152/82
[2020-06-28] MEDS: HYDROCODONE/ACETAMINOPHEN 7.5/325 MG TAB PO PRN (12:24)
[2020-08-21] MEDS ORDERED: QUET100T34 PO (16:15)
[2020-08-21] MEDS ORDERED: TRAZ300T2 PO (16:16)
[2020-08-21] MEDS ORDERED: POLY17PO4 PO (16:17)
[2020-08-21] MEDS ORDERED: PREN-64 PO (16:19)
[2020-08-21] MEDS ORDERED: LACT10SO9 PO (16:28)
[2020-08-22] MEDS ORDERED: QUET300T71 PO (21:24)
[2020-08-22] MEDS ORDERED: HYDR-3421 PO (21:24)
[2020-08-22] MEDS ORDERED: ZOLP5TAB8 PO (21:24)
[2020-08-31] MEDS ORDERED: TRAZ300T2 PO (05:05)
[2020-08-31] MEDS ORDERED: VITA1CAP17 PO (05:05)
[2020-08-31] MEDS ORDERED: LORA-192 PO (05:05)
[2020-08-31] MEDS ORDERED: LEVO50CA4 PO (05:05)
[2020-08-31] MEDS ORDERED: ERGO500093 PO (05:05)
[2020-08-31] MEDS ORDERED: [UNRECOGNIZED DRUG - CODE] IV (05:05)
[2020-08-31] MEDS ORDERED: INSU100I21 SQ (05:05)
[2020-08-31] MEDS ORDERED: ACET-3194 PO (05:05)
[2020-08-31] MEDS ORDERED: CARV6.2579 PO (05:05)
[2020-08-31] MEDS ORDERED: GABA300C PO (05:05)
[2020-08-31] MEDS ORDERED: FURO40TA5 PO (05:05)
[2020-08-31] MEDS ORDERED: MELA5TAB14 PO (05:05)
[2020-08-31] MEDS ORDERED: INSU100V3 IJ (05:05)
[2020-08-31] MEDS ORDERED: PREN-61 PO (05:05)
[2020-08-31] MEDS ORDERED: FERR-72 PO (05:05)
[2020-08-31] MEDS ORDERED: DULO30CA52 PO (05:05)
[2020-12-01] MEDS ORDERED: QUET300T19 PO (20:36)
[2020-12-01] MEDS ORDERED: GLIP10TA9 PO (20:36)
[2020-12-01] MEDS ORDERED: TRAZ-187 PO (20:36)
[2020-12-01] MEDS ORDERED: ATOR20TA65 PO (20:36)
[2020-12-01] MEDS ORDERED: CITA-107 PO (20:36)
[2020-12-01] MEDS ORDERED: HYDR-3421 PO (20:36)
[2020-12-01] MEDS ORDERED: TRAZ150T79 PO (20:36)
[2020-12-01] MEDS ORDERED: LORA-192 PO (20:36)
[2020-12-01] MEDS ORDERED: GABA-529 PO (20:36)
[2020-12-01] MEDS ORDERED: FAMO20TA8 PO (20:36)
[2020-12-01] MEDS ORDERED: INSU100I35 SQ (20:36)
[2020-12-01] MEDS ORDERED: METF-446 PO (20:36)
[2020-12-01] MEDS ORDERED: FENO145T26 PO (20:36)
[2020-12-01] MEDS ORDERED: LISI20TA24 PO (20:36)
[2020-12-02] MEDS ORDERED: CEPH500C2 PO (01:28)
[2020-12-02] MEDS ORDERED: LOPE1TAB PO (01:28)
[2020-12-02] MEDS ORDERED: PROM25TA7 PO (01:28)
== END 2020-06-28 16:00 | DRG 240 ==
LOC: EDH 15:44 → EDHIP 19:19 → OBSVTOIN 19:19 → 3DH 06-20 21:34
PROVIDERS: ADMIT Internal Medicine; ATTEND Internal Medicine
PROC: 3E0234Z Introduction of Serum, Toxoid and Vaccine into Muscle, Percutaneous Approach (ICD-10-PCS; 2020-06-20)
PROC: B4101ZZ Fluoroscopy of Abdominal Aorta using Low Osmolar Contrast (ICD-10-PCS; 2020-06-23)
PROC: 04HY32Z Insertion of Monitoring Device into Lower Artery, Percutaneous Approach (ICD-10-PCS; 2020-06-23)
PROC: 0Y6N0ZF Detachment at Left Foot, Partial 5th Ray, Open Approach (ICD-10-PCS; 2020-06-24)
PROC: 0JBR0ZZ Excision of Left Foot Subcutaneous Tissue and Fascia, Open Approach (ICD-10-PCS; 2020-06-24)
PROC: 0Y6N0ZD Detachment at Left Foot, Partial 4th Ray, Open Approach (ICD-10-PCS; principal; 2020-06-24 16:04)
DX: E11.52 Type 2 diabetes mellitus with diabetic peripheral angiopathy with gangrene (principal); E87.1 Hypo-osmolality and hyponatremia; N39.0 Urinary tract infection, site not specified; F33.9 Major depressive disorder, recurrent, unspecified; M86.8X7 Other osteomyelitis, ankle and foot; I96 Gangrene, not elsewhere classified; E11.621 Type 2 diabetes mellitus with foot ulcer; E11.69 Type 2 diabetes mellitus with other specified complication; E78.5 Hyperlipidemia, unspecified; N80.9 Endometriosis, unspecified; L03.032 Cellulitis of left toe; B96.20 Unspecified Escherichia coli [E. coli] as the cause of diseases classified elsewhere; E11.42 Type 2 diabetes mellitus with diabetic polyneuropathy; E66.01 Morbid (severe) obesity due to excess calories; E78.00 Pure hypercholesterolemia, unspecified; E78.1 Pure hyperglyceridemia; E87.6 Hypokalemia; F41.1 Generalized anxiety disorder; G89.29 Other chronic pain; R59.0 Localized enlarged lymph nodes; I10 Essential (primary) hypertension; L97.529 Non-pressure chronic ulcer of other part of left foot with unspecified severity; Z68.35 Body mass index [BMI] 35.0-35.9, adult; Z63.8 Other specified problems related to primary support group; Z79.84 Long term (current) use of oral hypoglycemic drugs; Z79.899 Other long term (current) drug therapy; Z88.5 Allergy status to narcotic agent; Z23 Encounter for immunization; Z88.8 Allergy status to other drugs, medicaments and biological substances; Z90.722 Acquired absence of ovaries, bilateral; Z90.710 Acquired absence of both cervix and uterus; Z83.3 Family history of diabetes mellitus; Z82.49 Family history of ischemic heart disease and other diseases of the circulatory system; Z20.822 Contact with and (suspected) exposure to COVID-19
CPT/HCPCS: 36247; 36415; 71045; 73630; 73718; 74018; 75630; 75716; 75774; 80048; 80053; 80061; 80202; 81001; 82550; 82948; 83605; 83735; 83874; 84484; 85025; 85027; 85610; 85651; 85730; 86140; 86677; 87040; 87070; 87076; 87077; 87088; 87186; 87205; 87426; 88304; 88305; 88311; 88312; 90715; 93005; 93926; 93970; 97039; A4450; C1769; C1893; C1894; C9113; G0378; G0463; J1170; J1644; J1650; J1815; J1956; J2001; J2060; J2175; J2250; J2270; J2405; J2550; J2704; J3010; J3370; J3475; J3490; J7030; J7050; Q9967; U0003

== ENCOUNTER 2020-07-25 14:32 | Inpatient (IN) | payer OTHER ==
[~2020-07-25] VITALS: Ht 172.7 cm; Wt 93.0 kg
[~2020-07-25 14:32] MED LIST changes: +HYDR-3830 PO
[2020-07-25] MEDS ORDERED: MORPHINE 2 MG SYG ONE ×2 (15:33→15:45)
[2020-07-25] MEDS ORDERED: ZOSYN 3.375GM+NS 50ML 0 ML IV ONE (15:33)
[2020-07-25 15:34] LABS: BASOPHILS % (AUTO) 0.5 % (0.0-5.0); EOSINOPHILS % (AUTO) 3.1 % (0.0-8.0); HEMATOCRIT 34.7 % (36-48); LYMPHOCYTES % (AUTO) 13.1 % (21.0-51.0); MEAN CORPUSCULAR HEMOGLOBIN 30.1 pg (27.0-33.0); MEAN CORPUSCULAR VOLUME 88.5 fL (79-99); MONOCYTES % (AUTO) 7.1 % (3.0-13.0); NEUTROPHILS % (AUTO) 75.5 % (40.0-77.0); PLATELET COUNT (AUTO) 304 K/uL (130-400); RED BLOOD CELL COUNT(AUTO) 3.92 MIL/uL (4.00-5.50); RED CELL DISTRIBUTION WIDTH 12.5 % (11.0-15.5); WHITE BLOOD COUNT (AUTO) 10.9 K/uL (4.8-10.8)
[2020-07-25] MEDS ORDERED: ZOSYN 3.375GM+NS 50ML 50 ML IV ONE (15:35)
[2020-07-25 15:45] LABS: INR 0.99 (0.85-1.15); PROTHROMBIN TIME 10.8 SEC (9.6-11.6)
[2020-07-25 15:47] LABS: PARTIAL THROMBOPLASTIN TIME 26.8 SEC (26.3-35.5)
[2020-07-25 16:01] LABS: ALBUMIN 2.7 g/dL (3.5-5.0); BILIRUBIN,TOTAL 0.2 mg/dL (0.2-1.0); CREATININE 1.8 mg/dL (0.5-1.5); CRP QUANTITATIVE 114.6 mg/L (0.00-9.0); POTASSIUM 4.2 mmol/L (3.5-5.1); TOTAL PROTEIN, SERUM 7.6 g/dL (6.0-8.3)
[2020-07-25 16:24] LABS: APPEARANCE,URINE Clear (CLEAR); BILIRUBIN,URINE Negative (NEGATIVE); COLOR,URINE Yellow (YELLOW); GLUCOSE, URINE (UA) >=1000 mg/dL (NEGATIVE); KETONES,URINE Negative (NEGATIVE); LEUKOCYTE ESTERASE ,URINE Negative (NEGATIVE); NITRATE,URINE Negative (NEGATIVE); OCCULT BLOOD,URINE Trace (NEGATIVE); PH,URINE 6.5 (5.0-8.0); PROTEIN,URINE 300 mg/dL (NEGATIVE); UROBILINOGEN,URINE 0.2 mg/dL (0.2-1.0)
[2020-07-25] MEDS ORDERED: VANCOMYCIN PROTOCOL PER PHARMACY IV SCH (16:30)
[2020-07-25] MEDS ORDERED: MORPHINE 2 MG SYG IM PRN (16:30)
[2020-07-25] MEDS ORDERED: LIDOCAINE HCL-MPF 1% 2ML VIAL IV PRN ×2 (16:30)
[2020-07-25] MEDS ORDERED: GLUCAGON 1MG KIT 1 MG ML IM PRN (16:30)
[2020-07-25] MEDS: ZOSYN 3.375GM+NS 50ML 50 ML IV SCH (16:30)
[2020-07-25] MEDS ORDERED: KCL 20 MEQ ERTAB PO PRN (16:30)
[2020-07-25] MEDS ORDERED: POTASSIUM CHLORIDE 20MEQ/100ML 100 ML IV PRN ×2 (16:30)
[2020-07-25] MEDS ORDERED: POTASSIUM CHLORIDE 10% ELIXIR 20 MEQ/15 ML UDCUP PO PRN (16:30)
[2020-07-25] MEDS ORDERED: DEXTROSE 50%-WATER 50 ML DISP.SYRIN IV PRN (16:30)
[2020-07-25 16:37] LABS: BACTERIA,URINE Few /HPF (None Seen); RBC,URINE None Seen /HPF (0-1); SQUAMOUS EPITHELIAL CELL,UR 0-2 /HPF (0-2); WBC,URINE 0-1 /HPF (0-1)
[2020-07-25] MEDS ORDERED: VANCOMYCIN 1G/250ML KIT 250 ML IV ONE (16:40)
[2020-07-25] MEDS ORDERED: INSULIN HUMULIN R 100 UNIT/ML 3ML ONE (16:54)
[2020-07-25] MEDS: HEPARIN 5,000 UNIT VIAL SQ SCH (17:00)
[2020-07-25] MEDS ORDERED: COMPOUND IV REFRIGERATED 1 EACH IVSOLN MISC PRN (17:15)
[2020-07-25] MEDS ORDERED: HEPARIN 5,000 UNIT VIAL ONE ×2 (18:19→18:40)
[2020-07-25] MEDS ORDERED: MORPHINE 4 MG SYG ONE (22:18)
[2020-07-25] MEDS ORDERED: ONDANSETRON 4MG INJ ONE (23:23)
[2020-07-26] VITALS (7 sets, daily range): BP systolic 137–174; BP diastolic 74–98
[2020-07-26] MEDS ORDERED: TRAZODONE HCL 50 MG TAB ONE (01:27)
[2020-07-26] MEDS ORDERED: QUETIAPINE FUMARATE 100 MG TAB ONE (01:27)
[2020-07-26] MEDS: ZOSYN 3.375GM+NS 50ML 50 ML IV SCH ×3 (03:38→17:34)
[2020-07-26 05:33] LABS: HEMATOCRIT 27.3 % (36-48); MEAN CORPUSCULAR HEMOGLOBIN 29.8 pg (27.0-33.0); MEAN CORPUSCULAR HGB CONC 33.7 g/dL (32.0-36.0); MEAN CORPUSCULAR VOLUME 88.3 fL (79-99); RED BLOOD CELL COUNT(AUTO) 3.09 MIL/uL (4.00-5.50); RED CELL DISTRIBUTION WIDTH 12.5 % (11.0-15.5); WHITE BLOOD COUNT (AUTO) 10.5 K/uL (4.8-10.8)
[2020-07-26 05:55] LABS: ALBUMIN 1.9 g/dL (3.5-5.0); BILIRUBIN,TOTAL 0.2 mg/dL (0.2-1.0); CREATININE 1.3 mg/dL (0.5-1.5); MAGNESIUM 1.3 mg/dL (1.80-2.40); POTASSIUM 3.5 mmol/L (3.5-5.1); TOTAL PROTEIN, SERUM 5.8 g/dL (6.0-8.3)
[2020-07-26] MEDS: HEPARIN 5,000 UNIT VIAL SQ SCH ×2 (06:25→17:49)
[2020-07-26] MEDS: MAGNESIUM 2GM PREMIX 50ML 50 ML IV PRN (07:00)
[2020-07-26] MEDS: MORPHINE 2 MG SYG IV PRN ×3 (07:00→13:18)
[2020-07-26] MEDS: VANCOMYCIN 1G 1.25 GM in 0.9% NACL 250ML 250 ML IV SCH (09:42)
[2020-07-26] MEDS: PANTOPRAZOLE 40 MG TAB DR PO SCH (09:43)
[2020-07-26] MEDS: NITROGLYCERIN 1GM OINT 1 INCH/1GM TD SCH (17:34)
[2020-07-26] MEDS: MORPHINE 4 MG SYG IV PRN (17:35)
[2020-07-26] MEDS: CLOPIDOGREL 75MG TAB PO SCH (17:37)
[2020-07-26] MEDS: ASPIRIN 81MG CHEW TAB PO SCH (17:37)
[2020-07-26] MEDS: INSULIN HUMULIN R 100 UNIT/ML 3ML SQ SCH ×2 (17:49→20:29)
[2020-07-26] MEDS: ATORVASTATIN 40 MG TABLET PO SCH (20:08)
[2020-07-26] MEDS: HYDROCODONE/ACETAMINOPHEN 5/325 MG TAB PO PRN (20:09)
[2020-07-27] MEDS: ZOSYN 3.375GM+NS 50ML 50 ML IV SCH ×4 (00:06→23:26)
[2020-07-27] MEDS: NITROGLYCERIN 1GM OINT 1 INCH/1GM TD SCH ×4 (00:08→23:27)
[2020-07-27] MEDS: MORPHINE 4 MG SYG IV PRN ×3 (00:19→15:42)
[2020-07-27] MEDS: TRAZODONE HCL 100 MG TABLET PO SCH ×2 (02:00→20:03)
[2020-07-27] MEDS ORDERED: QUETIAPINE FUMARATE 100 MG TAB ONE (02:20)
[2020-07-27] MEDS ORDERED: TRAZODONE HCL 50 MG TAB ONE (02:20)
[2020-07-27] MEDS ORDERED: TRAZODONE HCL 100 MG TABLET ONE (02:20)
[2020-07-27] MEDS: QUETIAPINE FUMARATE 100 MG TAB PO SCH ×2 (02:40→20:02)
[2020-07-27 04:00] VITALS: BP 138/71
[2020-07-27] MEDS: INSULIN HUMULIN R 100 UNIT/ML 3ML SQ SCH ×4 (06:45→23:42)
[2020-07-27] MEDS: HEPARIN 5,000 UNIT VIAL SQ SCH ×2 (06:46→17:00)
[2020-07-27 07:00] VITALS: BP 137/80
[2020-07-27 07:57] LABS: HEMATOCRIT 27.3 % (36-48); MEAN CORPUSCULAR HEMOGLOBIN 30.3 pg (27.0-33.0); MEAN CORPUSCULAR HGB CONC 34.4 g/dL (32.0-36.0); MEAN CORPUSCULAR VOLUME 88.1 fL (79-99); RED BLOOD CELL COUNT(AUTO) 3.1 MIL/uL (4.00-5.50); RED CELL DISTRIBUTION WIDTH 12.4 % (11.0-15.5); WHITE BLOOD COUNT (AUTO) 11.2 K/uL (4.8-10.8)
[2020-07-27 08:07] LABS: CREATININE 1.3 mg/dL (0.5-1.5)
[2020-07-27] MEDS: PANTOPRAZOLE 40 MG TAB DR PO SCH (08:47)
[2020-07-27] MEDS: CLOPIDOGREL 75MG TAB PO SCH (08:47)
[2020-07-27] MEDS: ASPIRIN 81MG CHEW TAB PO SCH (08:47)
[2020-07-27] MEDS: VANCOMYCIN 1G 1.25 GM in 0.9% NACL 250ML 250 ML IV SCH (08:50)
[2020-07-27 11:45] VITALS: BP 142/78
[2020-07-27] MEDS: HYDROCODONE/ACETAMINOPHEN 5/325 MG TAB PO PRN ×2 (13:11→20:02)
[2020-07-27 18:22] VITALS: BP 152/90
[2020-07-27] MEDS: ATORVASTATIN 40 MG TABLET PO SCH (20:02)
[2020-07-27] MEDS: HYDROXYZINE 25 MG TABLET PO SCH (20:02)
[2020-07-27 20:03] VITALS: BP 171/97
[2020-07-27] MEDS: ZOLPIDEM TARTRATE 5 MG TAB PO SCH (23:26)
[2020-07-27] MEDS: ONDANSETRON 4MG INJ IVP PRN (23:42)
[2020-07-27 23:56] VITALS: BP 165/93
[2020-07-28 03:35] VITALS: BP 149/88
[2020-07-28 06:15] LABS: MEAN CORPUSCULAR HEMOGLOBIN 29.4 pg (27.0-33.0); MEAN CORPUSCULAR HGB CONC 33.7 g/dL (32.0-36.0); MEAN CORPUSCULAR VOLUME 87.1 fL (79-99); RED BLOOD CELL COUNT(AUTO) 3.1 MIL/uL (4.00-5.50); RED CELL DISTRIBUTION WIDTH 12.3 % (11.0-15.5); WHITE BLOOD COUNT (AUTO) 10.4 K/uL (4.8-10.8)
[2020-07-28 06:28] LABS: CREATININE 1.5 mg/dL (0.5-1.5); MAGNESIUM 1.8 mg/dL (1.80-2.40); POTASSIUM 3.7 mmol/L (3.5-5.1)
[2020-07-28] MEDS: INSULIN HUMULIN R 100 UNIT/ML 3ML SQ SCH ×4 (06:28→21:23)
[2020-07-28] MEDS: HEPARIN 5,000 UNIT VIAL SQ SCH ×2 (06:40→16:57)
[2020-07-28] MEDS: ZOSYN 3.375GM+NS 50ML 50 ML IV SCH ×2 (08:38→16:57)
[2020-07-28] MEDS: CLOPIDOGREL 75MG TAB PO SCH (08:41)
[2020-07-28] MEDS: ASPIRIN 81MG CHEW TAB PO SCH (08:41)
[2020-07-28] MEDS: PANTOPRAZOLE 40 MG TAB DR PO SCH (08:41)
[2020-07-28] MEDS: PAROXETINE HCL 20 MG TABLET PO SCH ×2 (08:41→21:18)
[2020-07-28 08:42] VITALS: BP 162/91
[2020-07-28] MEDS: NITROGLYCERIN 1GM OINT 1 INCH/1GM TD SCH ×3 (08:42→17:53)
[2020-07-28] MEDS: HYDROCODONE/ACETAMINOPHEN 5/325 MG TAB PO PRN ×3 (09:00→20:03)
[2020-07-28] MEDS: VANCOMYCIN 1G 1.25 GM in 0.9% NACL 250ML 250 ML IV SCH (10:19)
[2020-07-28 12:00] VITALS: BP 170/82
[2020-07-28] MEDS: MAGNESIUM 2GM PREMIX 50ML 50 ML IV PRN (14:35)
[2020-07-28 16:00] VITALS: BP 184/82
[2020-07-28] MEDS: GLIPIZIDE 5 MG TABLET PO SCH (16:57)
[2020-07-28] MEDS: LABETALOL 20MG VIAL IV PRN (17:54)
[2020-07-28 19:00] VITALS: BP 162/84
[2020-07-28 20:00] VITALS: BP 166/81
[2020-07-28] MEDS: SEROQUEL 300 MG PO SCH (21:00)
[2020-07-28] MEDS: TRAZODONE HCL 100 MG TABLET PO SCH ×2 (21:00→21:19)
[2020-07-28] MEDS: HYDROXYZINE 25 MG TABLET PO SCH (21:17)
[2020-07-28] MEDS: ONDANSETRON 4MG INJ IVP PRN (21:17)
[2020-07-28] MEDS: QUETIAPINE FUMARATE 100 MG TAB PO SCH (21:18)
[2020-07-28] MEDS: ZOLPIDEM TARTRATE 5 MG TAB PO SCH (21:19)
[2020-07-28] MEDS: ATORVASTATIN 40 MG TABLET PO SCH (21:24)
[2020-07-29] VITALS (8 sets, daily range): BP systolic 128–180; BP diastolic 68–90
[2020-07-29] MEDS: ZOSYN 3.375GM+NS 50ML 50 ML IV SCH ×3 (00:10→16:44)
[2020-07-29] MEDS: LABETALOL 20MG VIAL IV PRN (00:10)
[2020-07-29] MEDS: PROMETHAZINE HCL 25 MG/ML 1ML AMPULE IM SCH (00:45)
[2020-07-29] MEDS: NITROGLYCERIN 1GM OINT 1 INCH/1GM TD SCH ×3 (00:52→18:53)
[2020-07-29] MEDS: HEPARIN 5,000 UNIT VIAL SQ SCH ×2 (04:29→16:52)
[2020-07-29] MEDS: INSULIN HUMULIN R 100 UNIT/ML 3ML SQ SCH ×4 (05:34→20:25)
[2020-07-29 07:52] LABS: HEMATOCRIT 26.3 % (36-48); MEAN CORPUSCULAR HGB CONC 33.5 g/dL (32.0-36.0); MEAN CORPUSCULAR VOLUME 86.8 fL (79-99); RED BLOOD CELL COUNT(AUTO) 3.03 MIL/uL (4.00-5.50); RED CELL DISTRIBUTION WIDTH 12.1 % (11.0-15.5)
[2020-07-29 08:15] LABS: CREATININE 1.5 mg/dL (0.5-1.5)
[2020-07-29] MEDS: MULTIVITAMIN WITH MINERALS TABLET PO SCH (09:00)
[2020-07-29] MEDS: PRENATAL VITAMIN RX TABLET PO SCH (09:00)
[2020-07-29] MEDS: ASPIRIN 81MG CHEW TAB PO SCH (09:17)
[2020-07-29] MEDS: AMLODIPINE 5 MG TAB PO SCH (09:17)
[2020-07-29] MEDS: PANTOPRAZOLE 40 MG TAB DR PO SCH (09:18)
[2020-07-29] MEDS: CLOPIDOGREL 75MG TAB PO SCH (09:18)
[2020-07-29] MEDS: PAROXETINE HCL 20 MG TABLET PO SCH ×2 (09:19→20:08)
[2020-07-29] MEDS: CLONIDINE HCL 0.2 MG TABLET PO SCH ×2 (09:20→20:07)
[2020-07-29] MEDS: VANCOMYCIN 1G 1.25 GM in 0.9% NACL 250ML 250 ML IV SCH (11:15)
[2020-07-29] MEDS: GLIPIZIDE 5 MG TABLET PO SCH (16:45)
[2020-07-29] MEDS: HYDROCODONE/ACETAMINOPHEN 5/325 MG TAB PO PRN (18:55)
[2020-07-29] MEDS: ONDANSETRON 4MG INJ IVP PRN (20:05)
[2020-07-29] MEDS: ATORVASTATIN 40 MG TABLET PO SCH (20:06)
[2020-07-29] MEDS: HYDROXYZINE 25 MG TABLET PO SCH (20:06)
[2020-07-29] MEDS: TRAZODONE HCL 100 MG TABLET PO SCH ×2 (20:06→20:25)
[2020-07-29] MEDS: QUETIAPINE FUMARATE 100 MG TAB PO SCH (20:07)
[2020-07-29] MEDS: ZOLPIDEM TARTRATE 5 MG TAB PO SCH (20:07)
[2020-07-29] MEDS: SEROQUEL 300 MG PO SCH (20:25)
[2020-07-29] MEDS: MORPHINE 4 MG SYG IV PRN (23:00)
[2020-07-30] VITALS (7 sets, daily range): BP systolic 115–159; BP diastolic 59–82
[2020-07-30] MEDS: PROMETHAZINE HCL 25 MG/ML 1ML AMPULE IM SCH (00:45)
[2020-07-30] MEDS: ZOSYN 3.375GM+NS 50ML 50 ML IV SCH ×3 (01:07→16:19)
[2020-07-30] MEDS: NITROGLYCERIN 1GM OINT 1 INCH/1GM TD SCH ×3 (01:07→16:19)
[2020-07-30] MEDS: HEPARIN 5,000 UNIT VIAL SQ SCH ×2 (05:23→16:22)
[2020-07-30] MEDS: INSULIN HUMULIN R 100 UNIT/ML 3ML SQ SCH ×4 (05:24→22:32)
[2020-07-30 05:48] LABS: HEMATOCRIT 23.9 % (36-48); MEAN CORPUSCULAR HGB CONC 34.3 g/dL (32.0-36.0); MEAN CORPUSCULAR VOLUME 87.5 fL (79-99); RED BLOOD CELL COUNT(AUTO) 2.73 MIL/uL (4.00-5.50); RED CELL DISTRIBUTION WIDTH 12.3 % (11.0-15.5); WHITE BLOOD COUNT (AUTO) 12.9 K/uL (4.8-10.8)
[2020-07-30 06:02] LABS: CREATININE 1.4 mg/dL (0.5-1.5); POTASSIUM 3.7 mmol/L (3.5-5.1)
[2020-07-30] MEDS: MULTIVITAMIN WITH MINERALS TABLET PO SCH (09:00)
[2020-07-30] MEDS: PRENATAL VITAMIN RX TABLET PO SCH (09:00)
[2020-07-30] MEDS: ASPIRIN 81MG CHEW TAB PO SCH (09:31)
[2020-07-30] MEDS: PAROXETINE HCL 20 MG TABLET PO SCH ×2 (09:32→22:25)
[2020-07-30] MEDS: AMLODIPINE 5 MG TAB PO SCH (09:32)
[2020-07-30] MEDS: PANTOPRAZOLE 40 MG TAB DR PO SCH (09:32)
[2020-07-30] MEDS: CLOPIDOGREL 75MG TAB PO SCH (09:32)
[2020-07-30] MEDS: INSULIN GLARGINE 100 UNITS/ML 10 ML VIAL SQ SCH ×2 (09:35→22:31)
[2020-07-30] MEDS: CLONIDINE HCL 0.2 MG TABLET PO SCH ×2 (09:37→22:25)
[2020-07-30] MEDS: MORPHINE 4 MG SYG IV PRN (09:56)
[2020-07-30] MEDS: VANCOMYCIN 1G 1.25 GM in 0.9% NACL 250ML 250 ML IV SCH (12:28)
[2020-07-30] MEDS: GLIPIZIDE 5 MG TABLET PO SCH (16:19)
[2020-07-30] MEDS: SEROQUEL 300 MG PO SCH (21:00)
[2020-07-30] MEDS: TRAZODONE HCL 100 MG TABLET PO SCH ×2 (21:00→22:24)
[2020-07-30] MEDS: ATORVASTATIN 40 MG TABLET PO SCH (22:24)
[2020-07-30] MEDS: ZOLPIDEM TARTRATE 5 MG TAB PO SCH (22:25)
[2020-07-30] MEDS: HYDROXYZINE 25 MG TABLET PO SCH (22:25)
[2020-07-30] MEDS: QUETIAPINE FUMARATE 100 MG TAB PO SCH (22:25)
[2020-07-30] MEDS: HYDROCODONE/ACETAMINOPHEN 5/325 MG TAB PO PRN (22:26)
[2020-07-31] MEDS: ZOSYN 3.375GM+NS 50ML 50 ML IV SCH ×3 (02:49→17:03)
[2020-07-31] MEDS: NITROGLYCERIN 1GM OINT 1 INCH/1GM TD SCH ×3 (02:50→17:04)
[2020-07-31 04:27] VITALS: BP 108/63
[2020-07-31 05:04] LABS: HEMATOCRIT 24.4 % (36-48); MEAN CORPUSCULAR HEMOGLOBIN 29.2 pg (27.0-33.0); MEAN CORPUSCULAR HGB CONC 33.2 g/dL (32.0-36.0); MEAN CORPUSCULAR VOLUME 88.1 fL (79-99); RED BLOOD CELL COUNT(AUTO) 2.77 MIL/uL (4.00-5.50)
[2020-07-31 05:21] LABS: CREATININE 1.7 mg/dL (0.5-1.5); POTASSIUM 3.9 mmol/L (3.5-5.1)
[2020-07-31] MEDS: INSULIN HUMULIN R 100 UNIT/ML 3ML SQ SCH ×4 (06:23→21:00)
[2020-07-31] MEDS: HEPARIN 5,000 UNIT VIAL SQ SCH ×2 (07:06→17:05)
[2020-07-31] MEDS: INSULIN GLARGINE 100 UNITS/ML 10 ML VIAL SQ SCH ×2 (07:07→22:04)
[2020-07-31 07:30] VITALS: BP 134/71
[2020-07-31] MEDS: MULTIVITAMIN WITH MINERALS TABLET PO SCH (08:55)
[2020-07-31] MEDS: AMLODIPINE 5 MG TAB PO SCH (08:55)
[2020-07-31] MEDS: FLUCONAZOLE 100 MG TAB PO SCH (08:55)
[2020-07-31] MEDS: PANTOPRAZOLE 40 MG TAB DR PO SCH (08:55)
[2020-07-31] MEDS: CLOPIDOGREL 75MG TAB PO SCH (08:55)
[2020-07-31] MEDS: ASPIRIN 81MG CHEW TAB PO SCH (08:55)
[2020-07-31] MEDS: PAROXETINE HCL 20 MG TABLET PO SCH ×2 (08:55→21:56)
[2020-07-31] MEDS: CLONIDINE HCL 0.2 MG TABLET PO SCH ×2 (08:55→21:56)
[2020-07-31] MEDS: PRENATAL VITAMIN RX TABLET PO SCH (08:55)
[2020-07-31] MEDS: VANCOMYCIN 1G 1.25 GM in 0.9% NACL 250ML 250 ML IV SCH (09:00)
[2020-07-31] MEDS: MORPHINE 4 MG SYG IV PRN (09:02)
[2020-07-31 11:00] VITALS: BP 128/73
[2020-07-31 15:40] VITALS: BP 122/70
[2020-07-31] MEDS: GLIPIZIDE 5 MG TABLET PO SCH (17:03)
[2020-07-31] MEDS: HYDROCODONE/ACETAMINOPHEN 5/325 MG TAB PO PRN (17:27)
[2020-07-31 20:13] VITALS: BP 138/75
[2020-07-31] MEDS: TRAZODONE HCL 100 MG TABLET PO SCH ×2 (21:00→21:57)
[2020-07-31] MEDS: SEROQUEL 300 MG PO SCH (21:00)
[2020-07-31] MEDS: HYDROXYZINE 25 MG TABLET PO SCH (21:55)
[2020-07-31] MEDS: HYDROMORPHONE 0.5 MG SYG (0.5MG/0.5ML) IVP PRN (21:55)
[2020-07-31] MEDS: ATORVASTATIN 40 MG TABLET PO SCH (21:56)
[2020-07-31] MEDS: ZOLPIDEM TARTRATE 5 MG TAB PO SCH (21:56)
[2020-07-31] MEDS: QUETIAPINE FUMARATE 100 MG TAB PO SCH (21:56)
[2020-07-31 23:32] VITALS: BP 98/49
[2020-08-01] MEDS: ZOSYN 3.375GM+NS 50ML 50 ML IV SCH ×4 (00:27→21:15)
[2020-08-01] MEDS: NITROGLYCERIN 1GM OINT 1 INCH/1GM TD SCH ×3 (00:29→18:40)
[2020-08-01 04:10] VITALS: BP 108/58
[2020-08-01 05:30] LABS: MEAN CORPUSCULAR HEMOGLOBIN 29.5 pg (27.0-33.0); MEAN CORPUSCULAR HGB CONC 33.8 g/dL (32.0-36.0); MEAN CORPUSCULAR VOLUME 87.3 fL (79-99); RED BLOOD CELL COUNT(AUTO) 2.75 MIL/uL (4.00-5.50); RED CELL DISTRIBUTION WIDTH 12.2 % (11.0-15.5); WHITE BLOOD COUNT (AUTO) 12.7 K/uL (4.8-10.8)
[2020-08-01 05:44] LABS: INR 1.05 (0.85-1.15); PROTHROMBIN TIME 11.4 SEC (9.6-11.6)
[2020-08-01 05:45] LABS: PARTIAL THROMBOPLASTIN TIME 27.9 SEC (26.3-35.5)
[2020-08-01 05:58] LABS: CREATININE 1.7 mg/dL (0.5-1.5); MAGNESIUM 1.9 mg/dL (1.80-2.40); POTASSIUM 3.6 mmol/L (3.5-5.1)
[2020-08-01] MEDS: INSULIN HUMULIN R 100 UNIT/ML 3ML SQ SCH ×4 (05:59→21:00)
[2020-08-01] MEDS: LACTULOSE 20 GM/30 ML UDCUP PO PRN (05:59)
[2020-08-01] MEDS: INSULIN GLARGINE 100 UNITS/ML 10 ML VIAL SQ SCH ×2 (06:05→21:00)
[2020-08-01] MEDS: HEPARIN 5,000 UNIT VIAL SQ SCH ×2 (06:06→16:58)
[2020-08-01 07:30] VITALS: BP 149/88
[2020-08-01] MEDS: HYDROMORPHONE 0.5 MG SYG (0.5MG/0.5ML) IVP PRN ×2 (07:35→16:52)
[2020-08-01] MEDS: PRENATAL VITAMIN RX TABLET PO SCH (08:31)
[2020-08-01] MEDS: CLONIDINE HCL 0.2 MG TABLET PO SCH ×2 (08:31→21:15)
[2020-08-01] MEDS: MULTIVITAMIN WITH MINERALS TABLET PO SCH (08:32)
[2020-08-01] MEDS: PAROXETINE HCL 20 MG TABLET PO SCH ×2 (08:32→21:13)
[2020-08-01] MEDS: AMLODIPINE 5 MG TAB PO SCH (08:32)
[2020-08-01] MEDS: FLUCONAZOLE 100 MG TAB PO SCH (08:32)
[2020-08-01] MEDS: ASPIRIN 81MG CHEW TAB PO SCH (08:33)
[2020-08-01] MEDS: VANCOMYCIN 1G 1.25 GM in 0.9% NACL 250ML 250 ML IV SCH (08:33)
[2020-08-01] MEDS: PANTOPRAZOLE 40 MG TAB DR PO SCH (08:33)
[2020-08-01] MEDS: CLOPIDOGREL 75MG TAB PO SCH (08:33)
[2020-08-01 11:00] VITALS: BP 139/66
[2020-08-01 16:00] VITALS: BP 142/76
[2020-08-01] MEDS: GLIPIZIDE 5 MG TABLET PO SCH (16:52)
[2020-08-01] MEDS: HYDROCODONE/ACETAMINOPHEN 5/325 MG TAB PO PRN ×2 (18:39→23:42)
[2020-08-01 20:00] VITALS: BP 128/73
[2020-08-01] MEDS: SEROQUEL 300 MG PO SCH (21:00)
[2020-08-01] MEDS: ATORVASTATIN 40 MG TABLET PO SCH (21:13)
[2020-08-01] MEDS: ZOLPIDEM TARTRATE 5 MG TAB PO SCH (21:15)
[2020-08-01] MEDS: HYDROXYZINE 25 MG TABLET PO SCH (21:15)
[2020-08-01] MEDS: TRAZODONE HCL 100 MG TABLET PO SCH (21:21)
[2020-08-01] MEDS: QUETIAPINE FUMARATE 100 MG TAB PO SCH (21:21)
[2020-08-02] VITALS (25 sets, daily range): BP systolic 118–177; BP diastolic 68–98
[2020-08-02] MEDS: NITROGLYCERIN 1GM OINT 1 INCH/1GM TD SCH ×3 (01:39→20:27)
[2020-08-02] MEDS: HEPARIN 5,000 UNIT VIAL SQ SCH ×2 (04:09→17:00)
[2020-08-02] MEDS: ZOSYN 3.375GM+NS 50ML 50 ML IV SCH ×3 (04:38→21:00)
[2020-08-02 06:17] LABS: MEAN CORPUSCULAR HEMOGLOBIN 28.6 pg (27.0-33.0); MEAN CORPUSCULAR HGB CONC 32.4 g/dL (32.0-36.0); MEAN CORPUSCULAR VOLUME 88.3 fL (79-99); RED BLOOD CELL COUNT(AUTO) 2.83 MIL/uL (4.00-5.50); WHITE BLOOD COUNT (AUTO) 11.9 K/uL (4.8-10.8)
[2020-08-02 06:38] LABS: CREATININE 1.8 mg/dL (0.5-1.5); POTASSIUM 4.1 mmol/L (3.5-5.1)
[2020-08-02 06:40] LABS: INR 1.13 (0.85-1.15); PARTIAL THROMBOPLASTIN TIME 27.9 SEC (26.3-35.5); PROTHROMBIN TIME 11.6 SEC (9.6-11.6)
[2020-08-02] MEDS: INSULIN HUMULIN R 100 UNIT/ML 3ML SQ SCH ×4 (06:42→20:24)
[2020-08-02] MEDS: INSULIN GLARGINE 100 UNITS/ML 10 ML VIAL SQ SCH ×2 (06:43→20:23)
[2020-08-02] MEDS ORDERED: MIDAZOLAM HCL 1 MG/ML 2ML VIAL ONE (07:39)
[2020-08-02] MEDS ORDERED: KETAMINE 50MG/ML SYRINGE 50 MG/ML DISP.SYRIN IV ONE (07:41)
[2020-08-02] MEDS ORDERED: LIDOCAINE HCL 1% 20 ML VIAL ONE (07:42)
[2020-08-02] MEDS ORDERED: ONDANSETRON 4MG INJ ONE (07:42)
[2020-08-02] MEDS ORDERED: BUPIVACAINE/PF 0.25% 30ML VIAL IJ ONE (07:42)
[2020-08-02] MEDS ORDERED: GLYCOPYRROLATE 1 MG/5 ML SYRINGE ONE (07:43)
[2020-08-02] MEDS ORDERED: DEXMEDETOMIDINE HCL IV SCH (07:45)
[2020-08-02] MEDS ORDERED: [UNRECOGNIZED DRUG - OTHER] IV SCH (07:45)
[2020-08-02] MEDS ORDERED: FENTANYL CITRATE PF 50 MCG/1 ML 2ML VIAL ONE (08:16)
[2020-08-02] MEDS ORDERED: PROPOFOL 10 MG/ML 20ML VIAL IV ONE ×2 (08:32→09:17)
[2020-08-02] MEDS: ASPIRIN 81MG CHEW TAB PO SCH (09:00)
[2020-08-02] MEDS: CLOPIDOGREL 75MG TAB PO SCH (09:00)
[2020-08-02] MEDS: PANTOPRAZOLE 40 MG TAB DR PO SCH (11:52)
[2020-08-02] MEDS: PRENATAL VITAMIN RX TABLET PO SCH (11:52)
[2020-08-02] MEDS: FLUCONAZOLE 100 MG TAB PO SCH (11:52)
[2020-08-02] MEDS: LACTULOSE 20 GM/30 ML UDCUP PO PRN (11:53)
[2020-08-02] MEDS: CLONIDINE HCL 0.2 MG TABLET PO SCH ×2 (11:53→20:15)
[2020-08-02] MEDS: MULTIVITAMIN WITH MINERALS TABLET PO SCH (11:53)
[2020-08-02] MEDS: PAROXETINE HCL 20 MG TABLET PO SCH ×2 (11:54→20:10)
[2020-08-02] MEDS: AMLODIPINE 5 MG TAB PO SCH (11:56)
[2020-08-02] MEDS: HYDROMORPHONE 1 MG INJ IVP PRN (17:26)
[2020-08-02] MEDS: GLIPIZIDE 5 MG TABLET PO SCH (17:27)
[2020-08-02] MEDS ORDERED: GABA-529 PO (17:49)
[2020-08-02] MEDS: ONDANSETRON 4MG INJ IVP PRN (18:56)
[2020-08-02] MEDS: HYDROCODONE/ACETAMINOPHEN 5/325 MG TAB PO PRN (18:59)
[2020-08-02] MEDS: ATORVASTATIN 40 MG TABLET PO SCH (20:10)
[2020-08-02] MEDS: TRAZODONE HCL 100 MG TABLET PO SCH (20:10)
[2020-08-02] MEDS: ZOLPIDEM TARTRATE 5 MG TAB PO SCH (20:10)
[2020-08-02] MEDS: QUETIAPINE FUMARATE 100 MG TAB PO SCH (20:10)
[2020-08-02] MEDS: HYDROXYZINE 25 MG TABLET PO SCH (20:15)
[2020-08-02] MEDS: GABAPENTIN 100 MG CAPSULE PO SCH (20:19)
[2020-08-02] MEDS: SEROQUEL 300 MG PO SCH (21:00)
[2020-08-03] MEDS ORDERED: KETOROLAC 30MG VIAL (30MG/ML) ONE (00:07)
[2020-08-03] MEDS: ACETAMINOPHEN 325 MG TAB PO PRN ×2 (00:10→01:12)
[2020-08-03] MEDS ORDERED: KETOROLAC 15MG/ML VIAL (15MG/ML) IV ONE (00:15)
[2020-08-03 00:20] VITALS: BP 128/86
[2020-08-03] MEDS: NITROGLYCERIN 1GM OINT 1 INCH/1GM TD SCH ×3 (01:24→18:19)
[2020-08-03] MEDS: HYDROMORPHONE 1 MG INJ IVP PRN ×2 (01:25→10:00)
[2020-08-03] MEDS: ZOSYN 3.375GM+NS 50ML 50 ML IV SCH ×2 (02:45→12:29)
[2020-08-03] MEDS: HEPARIN 5,000 UNIT VIAL SQ SCH (03:37)
[2020-08-03] MEDS: HYDROCODONE/ACETAMINOPHEN 5/325 MG TAB PO PRN ×3 (03:48→23:43)
[2020-08-03 04:00] VITALS: BP 101/59
[2020-08-03] MEDS: INSULIN HUMULIN R 100 UNIT/ML 3ML SQ SCH ×4 (05:12→22:25)
[2020-08-03 06:20] LABS: MEAN CORPUSCULAR HGB CONC 33.3 g/dL (32.0-36.0); MEAN CORPUSCULAR VOLUME 89.9 fL (79-99); RED BLOOD CELL COUNT(AUTO) 2.67 MIL/uL (4.00-5.50); RED CELL DISTRIBUTION WIDTH 12.4 % (11.0-15.5); WHITE BLOOD COUNT (AUTO) 17.2 K/uL (4.8-10.8)
[2020-08-03 06:29] LABS: CREATININE 1.9 mg/dL (0.5-1.5); POTASSIUM 4.2 mmol/L (3.5-5.1)
[2020-08-03] MEDS: INSULIN GLARGINE 100 UNITS/ML 10 ML VIAL SQ SCH ×2 (06:41→21:00)
[2020-08-03 08:00] VITALS: BP 113/67
[2020-08-03] MEDS: MULTIVITAMIN WITH MINERALS TABLET PO SCH (09:00)
[2020-08-03] MEDS: PRENATAL VITAMIN RX TABLET PO SCH (09:00)
[2020-08-03] MEDS: CLOPIDOGREL 75MG TAB PO SCH (09:49)
[2020-08-03] MEDS: FLUCONAZOLE 100 MG TAB PO SCH (09:49)
[2020-08-03] MEDS: AMLODIPINE 5 MG TAB PO SCH (09:49)
[2020-08-03] MEDS: ASPIRIN 81MG CHEW TAB PO SCH (09:50)
[2020-08-03] MEDS: PAROXETINE HCL 20 MG TABLET PO SCH ×2 (09:50→22:16)
[2020-08-03] MEDS: GABAPENTIN 100 MG CAPSULE PO SCH ×3 (09:50→22:16)
[2020-08-03] MEDS: PANTOPRAZOLE 40 MG TAB DR PO SCH (09:51)
[2020-08-03 12:00] VITALS: BP 143/76
[2020-08-03] MEDS: CLONIDINE HCL 0.2 MG TABLET PO SCH ×2 (12:30→22:17)
[2020-08-03] MEDS: GLIPIZIDE 5 MG TABLET PO SCH (15:56)
[2020-08-03 16:00] VITALS: BP 156/72
[2020-08-03 16:37] LABS: ABG HCO3 19.5 mmol/L (21.0-28.0); ABG PCO2 34 mmHg (32-45)
[2020-08-03] MEDS ORDERED: ENOXAPARIN SODIUM 100 MG/1 ML SQ ONE (18:16)
[2020-08-03] MEDS: ENOXAPARIN SODIUM 100 MG/1 ML SQ SCH (18:20)
[2020-08-03] MEDS ORDERED: VANCOMYCIN 1G/250ML KIT 250 ML IV SCH (20:15)
[2020-08-03] MEDS ORDERED: VANCOMYCIN PROTOCOL PER PHARMACY IV SCH (20:15)
[2020-08-03] MEDS ORDERED: COMPOUND IV REFRIGERATED 1 EACH IVSOLN MISC PRN (20:15)
[2020-08-03 20:18] VITALS: BP 158/76
[2020-08-03] MEDS: QUETIAPINE FUMARATE 100 MG TAB PO SCH (21:00)
[2020-08-03] MEDS: TRAZODONE HCL 100 MG TABLET PO SCH (21:00)
[2020-08-03] MEDS: HYDROXYZINE 25 MG TABLET PO SCH (21:00)
[2020-08-03] MEDS: ZOLPIDEM TARTRATE 5 MG TAB PO SCH (21:00)
[2020-08-03] MEDS: SEROQUEL 300 MG PO SCH (21:00)
[2020-08-03] MEDS ORDERED: VANCOMYCIN 1G 1.5 GM in 0.9% NACL 250ML 250 ML IV ONE (21:00)
[2020-08-03] MEDS: ATORVASTATIN 40 MG TABLET PO SCH (22:16)
[2020-08-03] MEDS: MEROPENEM 500 MG VIAL IVP SCH (22:17)
[2020-08-04 00:14] VITALS: BP 112/55
[2020-08-04] MEDS: NITROGLYCERIN 1GM OINT 1 INCH/1GM TD SCH ×3 (01:52→17:15)
[2020-08-04 04:29] VITALS: BP 117/53
[2020-08-04 05:20] LABS: HEMATOCRIT 24.1 % (36-48); MEAN CORPUSCULAR HEMOGLOBIN 29.3 pg (27.0-33.0); MEAN CORPUSCULAR HGB CONC 33.2 g/dL (32.0-36.0); MEAN CORPUSCULAR VOLUME 88.3 fL (79-99); RED BLOOD CELL COUNT(AUTO) 2.73 MIL/uL (4.00-5.50); RED CELL DISTRIBUTION WIDTH 12.3 % (11.0-15.5); WHITE BLOOD COUNT (AUTO) 16.8 K/uL (4.8-10.8)
[2020-08-04] MEDS: INSULIN HUMULIN R 100 UNIT/ML 3ML SQ SCH ×4 (05:26→21:49)
[2020-08-04] MEDS: INSULIN GLARGINE 100 UNITS/ML 10 ML VIAL SQ SCH ×2 (05:27→21:48)
[2020-08-04] MEDS: MEROPENEM 500 MG VIAL IVP SCH ×3 (05:29→21:33)
[2020-08-04 05:38] LABS: CREATININE 1.8 mg/dL (0.5-1.5); POTASSIUM 3.8 mmol/L (3.5-5.1)
[2020-08-04] MEDS: HYDROCODONE/ACETAMINOPHEN 5/325 MG TAB PO PRN (05:42)
[2020-08-04 06:29] LABS: ABG HCO3 20.4 mmol/L (21.0-28.0); ABG OXYGEN SATURATION 97.1 % (95.0-99.0); ABG PCO2 36 mmHg (32-45)
[2020-08-04 07:53] VITALS: BP 112/53
[2020-08-04] MEDS: MULTIVITAMIN WITH MINERALS TABLET PO SCH ×2 (09:00→09:13)
[2020-08-04] MEDS: CLOPIDOGREL 75MG TAB PO SCH (09:12)
[2020-08-04] MEDS: ASPIRIN 81MG CHEW TAB PO SCH (09:12)
[2020-08-04] MEDS: VANCOMYCIN 500MG+NS 100ML 100 ML IV SCH ×2 (09:12→21:33)
[2020-08-04] MEDS: PRENATAL VITAMIN RX TABLET PO SCH (09:12)
[2020-08-04] MEDS: PANTOPRAZOLE 40 MG TAB DR PO SCH (09:13)
[2020-08-04] MEDS: GABAPENTIN 100 MG CAPSULE PO SCH ×3 (09:13→21:34)
[2020-08-04] MEDS: ENOXAPARIN SODIUM 100 MG/1 ML SQ SCH ×2 (09:13→21:36)
[2020-08-04] MEDS: AMLODIPINE 5 MG TAB PO SCH (09:14)
[2020-08-04] MEDS: CLONIDINE HCL 0.2 MG TABLET PO SCH ×2 (09:14→21:00)
[2020-08-04] MEDS: PAROXETINE HCL 20 MG TABLET PO SCH ×2 (09:15→21:34)
[2020-08-04] MEDS: FLUCONAZOLE 100 MG TAB PO SCH (09:15)
[2020-08-04] MEDS: MORPHINE 2 MG SYG IVP PRN ×2 (09:39→22:11)
[2020-08-04 11:41] VITALS: BP 123/74
[2020-08-04] MEDS: HYDROMORPHONE 1 MG INJ IVP PRN (14:17)
[2020-08-04 16:44] VITALS: BP 130/67
[2020-08-04] MEDS: GLIPIZIDE 5 MG TABLET PO SCH (17:14)
[2020-08-04] MEDS: FUROSEMIDE 20MG VIAL IV SCH (17:18)
[2020-08-04] MEDS: AZITHROMYCIN 500MG+NS 250ML 250 ML IV SCH (17:19)
[2020-08-04] MEDS: IPRATROPIUM/ALBUTEROL SULFATE 3 ML SOLUTION IH SCH ×2 (18:21→23:20)
[2020-08-04 19:58] VITALS: BP 115/63
[2020-08-04] MEDS: SEROQUEL 300 MG PO SCH (21:00)
[2020-08-04] MEDS: HYDROXYZINE 25 MG TABLET PO SCH (21:33)
[2020-08-04] MEDS: ZOLPIDEM TARTRATE 5 MG TAB PO SCH (21:33)
[2020-08-04] MEDS: QUETIAPINE FUMARATE 100 MG TAB PO SCH (21:33)
[2020-08-04] MEDS: TRAZODONE HCL 100 MG TABLET PO SCH (21:34)
[2020-08-04] MEDS: ATORVASTATIN 40 MG TABLET PO SCH (21:34)
[2020-08-05] VITALS (7 sets, daily range): BP systolic 104–141; BP diastolic 50–75
[2020-08-05] MEDS: HYDROMORPHONE 1 MG INJ IVP PRN ×2 (00:46→11:51)
[2020-08-05] MEDS: FUROSEMIDE 20MG VIAL IV SCH ×2 (01:48→13:47)
[2020-08-05] MEDS: NITROGLYCERIN 1GM OINT 1 INCH/1GM TD SCH ×3 (01:49→18:06)
[2020-08-05] MEDS: MEROPENEM 500 MG VIAL IVP SCH ×3 (04:49→21:44)
[2020-08-05 05:05] LABS: HEMATOCRIT 22.5 % (36-48); MEAN CORPUSCULAR HGB CONC 32.4 g/dL (32.0-36.0); MEAN CORPUSCULAR VOLUME 89.3 fL (79-99); RED BLOOD CELL COUNT(AUTO) 2.52 MIL/uL (4.00-5.50); RED CELL DISTRIBUTION WIDTH 12.4 % (11.0-15.5); WHITE BLOOD COUNT (AUTO) 15.1 K/uL (4.8-10.8)
[2020-08-05 05:20] LABS: ALBUMIN 1.4 g/dL (3.5-5.0); BILIRUBIN,TOTAL 0.1 mg/dL (0.2-1.0); MAGNESIUM 1.6 mg/dL (1.80-2.40); PHOSPHORUS 3.9 mg/dL (2.5-4.9); TOTAL PROTEIN, SERUM 5.7 g/dL (6.0-8.3)
[2020-08-05] MEDS: IPRATROPIUM/ALBUTEROL SULFATE 3 ML SOLUTION IH SCH ×4 (06:34→23:28)
[2020-08-05] MEDS: INSULIN GLARGINE 100 UNITS/ML 10 ML VIAL SQ SCH ×2 (06:39→22:09)
[2020-08-05] MEDS: INSULIN HUMULIN R 100 UNIT/ML 3ML SQ SCH ×4 (06:40→22:11)
[2020-08-05] MEDS: PRENATAL VITAMIN RX TABLET PO SCH (09:04)
[2020-08-05] MEDS: VANCOMYCIN 500MG+NS 100ML 100 ML IV SCH ×2 (09:04→21:45)
[2020-08-05] MEDS: ASPIRIN 81MG CHEW TAB PO SCH (09:04)
[2020-08-05] MEDS: MULTIVITAMIN WITH MINERALS TABLET PO SCH (09:05)
[2020-08-05] MEDS: CLOPIDOGREL 75MG TAB PO SCH (09:05)
[2020-08-05] MEDS: AMLODIPINE 5 MG TAB PO SCH (09:05)
[2020-08-05] MEDS: PANTOPRAZOLE 40 MG TAB DR PO SCH (09:06)
[2020-08-05] MEDS: PAROXETINE HCL 20 MG TABLET PO SCH ×2 (09:06→21:40)
[2020-08-05] MEDS: FLUCONAZOLE 100 MG TAB PO SCH (09:06)
[2020-08-05] MEDS: CLONIDINE HCL 0.2 MG TABLET PO SCH ×2 (09:06→21:42)
[2020-08-05] MEDS: GABAPENTIN 100 MG CAPSULE PO SCH ×3 (09:07→21:39)
[2020-08-05] MEDS: ENOXAPARIN SODIUM 100 MG/1 ML SQ SCH ×2 (09:07→21:44)
[2020-08-05] MEDS: AZITHROMYCIN 500MG+NS 250ML 250 ML IV SCH (18:03)
[2020-08-05] MEDS: DEXAMETHASONE 4 MG TAB PO SCH (18:04)
[2020-08-05] MEDS: GLIPIZIDE 5 MG TABLET PO SCH (18:05)
[2020-08-05] MEDS: ACETAMINOPHEN 325 MG TAB PO PRN ×2 (18:19→21:43)
[2020-08-05] MEDS: SEROQUEL 300 MG PO SCH (21:00)
[2020-08-05] MEDS: ZOLPIDEM TARTRATE 5 MG TAB PO SCH (21:41)
[2020-08-05] MEDS: QUETIAPINE FUMARATE 100 MG TAB PO SCH (21:41)
[2020-08-05] MEDS: TRAZODONE HCL 100 MG TABLET PO SCH (21:41)
[2020-08-05] MEDS: ATORVASTATIN 40 MG TABLET PO SCH (21:42)
[2020-08-05] MEDS: HYDROXYZINE 25 MG TABLET PO SCH (21:43)
[2020-08-05] MEDS: MORPHINE 2 MG SYG IVP PRN (22:42)
[2020-08-06] MEDS: NITROGLYCERIN 1GM OINT 1 INCH/1GM TD SCH ×3 (02:36→18:06)
[2020-08-06 03:32] VITALS: BP 123/64
[2020-08-06] MEDS: MORPHINE 2 MG SYG IVP PRN (03:57)
[2020-08-06] MEDS: MEROPENEM 500 MG VIAL IVP SCH ×3 (03:57→22:44)
[2020-08-06] MEDS: HYDROMORPHONE 1 MG INJ IVP PRN ×2 (05:18→11:12)
[2020-08-06 05:39] LABS: HEMATOCRIT 24.5 % (36-48); MEAN CORPUSCULAR HEMOGLOBIN 28.8 pg (27.0-33.0); MEAN CORPUSCULAR HGB CONC 32.7 g/dL (32.0-36.0); MEAN CORPUSCULAR VOLUME 88.1 fL (79-99); RED BLOOD CELL COUNT(AUTO) 2.78 MIL/uL (4.00-5.50); RED CELL DISTRIBUTION WIDTH 12.4 % (11.0-15.5)
[2020-08-06 05:58] LABS: CREATININE 2.1 mg/dL (0.5-1.5); POTASSIUM 4.4 mmol/L (3.5-5.1)
[2020-08-06] MEDS: IPRATROPIUM/ALBUTEROL SULFATE 3 ML SOLUTION IH SCH ×3 (06:05→18:42)
[2020-08-06] MEDS: INSULIN HUMULIN R 100 UNIT/ML 3ML SQ SCH ×4 (06:09→22:30)
[2020-08-06] MEDS: INSULIN GLARGINE 100 UNITS/ML 10 ML VIAL SQ SCH ×2 (06:11→22:27)
[2020-08-06 08:37] VITALS: BP 113/56
[2020-08-06] MEDS: PRENATAL VITAMIN RX TABLET PO SCH (09:00)
[2020-08-06] MEDS: MULTIVITAMIN WITH MINERALS TABLET PO SCH (09:00)
[2020-08-06] MEDS: VANCOMYCIN 500MG+NS 100ML 100 ML IV SCH ×2 (09:33→22:08)
[2020-08-06] MEDS: DEXAMETHASONE 4 MG TAB PO SCH (09:34)
[2020-08-06] MEDS: CLOPIDOGREL 75MG TAB PO SCH (09:35)
[2020-08-06] MEDS: PAROXETINE HCL 20 MG TABLET PO SCH ×2 (09:40→21:55)
[2020-08-06] MEDS: AMLODIPINE 5 MG TAB PO SCH (09:40)
[2020-08-06] MEDS: ASPIRIN 81MG CHEW TAB PO SCH (09:41)
[2020-08-06] MEDS: PANTOPRAZOLE 40 MG TAB DR PO SCH (09:41)
[2020-08-06] MEDS: FLUCONAZOLE 100 MG TAB PO SCH (09:41)
[2020-08-06] MEDS: GABAPENTIN 100 MG CAPSULE PO SCH ×3 (09:42→21:55)
[2020-08-06] MEDS: CLONIDINE HCL 0.2 MG TABLET PO SCH ×2 (09:44→21:55)
[2020-08-06] MEDS: ENOXAPARIN SODIUM 100 MG/1 ML SQ SCH ×2 (09:45→22:30)
[2020-08-06 12:55] VITALS: BP 117/54
[2020-08-06] MEDS: LEVOFLOXACIN 500 MG/D5W 100 ML 100 ML IV SCH (14:19)
[2020-08-06] MEDS: GLIPIZIDE 5 MG TABLET PO SCH (16:55)
[2020-08-06 20:00] VITALS: BP 139/77
[2020-08-06] MEDS: SEROQUEL 300 MG PO SCH (21:00)
[2020-08-06] MEDS: ATORVASTATIN 40 MG TABLET PO SCH (21:54)
[2020-08-06] MEDS: TRAZODONE HCL 100 MG TABLET PO SCH (21:54)
[2020-08-06] MEDS: HYDROXYZINE 25 MG TABLET PO SCH (21:55)
[2020-08-06] MEDS: ZOLPIDEM TARTRATE 5 MG TAB PO SCH (21:55)
[2020-08-06] MEDS: QUETIAPINE FUMARATE 100 MG TAB PO SCH (21:56)
[2020-08-06] MEDS ORDERED: 0.9% NACL 500ML IV.SOLN 500 ML IV ONE (22:01)
[2020-08-07] VITALS: BP 145/84
[2020-08-07] MEDS: IPRATROPIUM/ALBUTEROL SULFATE 3 ML SOLUTION IH SCH ×5 (00:10→23:32)
[2020-08-07] MEDS: NITROGLYCERIN 1GM OINT 1 INCH/1GM TD SCH ×3 (02:30→18:15)
[2020-08-07 04:00] VITALS: BP 130/71
[2020-08-07 05:17] LABS: HEMATOCRIT 24.8 % (36-48); MEAN CORPUSCULAR HEMOGLOBIN 28.8 pg (27.0-33.0); MEAN CORPUSCULAR HGB CONC 32.7 g/dL (32.0-36.0); MEAN CORPUSCULAR VOLUME 88.3 fL (79-99); RED BLOOD CELL COUNT(AUTO) 2.81 MIL/uL (4.00-5.50); RED CELL DISTRIBUTION WIDTH 12.5 % (11.0-15.5); WHITE BLOOD COUNT (AUTO) 22.9 K/uL (4.8-10.8)
[2020-08-07 05:25] LABS: CREATININE 2.3 mg/dL (0.5-1.5); POTASSIUM 4.8 mmol/L (3.5-5.1)
[2020-08-07] MEDS: MEROPENEM 500 MG VIAL IVP SCH ×3 (06:16→21:36)
[2020-08-07] MEDS: INSULIN HUMULIN R 100 UNIT/ML 3ML SQ SCH ×4 (08:22→21:23)
[2020-08-07] MEDS: INSULIN GLARGINE 100 UNITS/ML 10 ML VIAL SQ SCH ×2 (08:22→21:24)
[2020-08-07] MEDS: SOLU-MEDROL 40MG VIAL IVP SCH ×2 (08:23→16:22)
[2020-08-07] MEDS: AMLODIPINE 5 MG TAB PO SCH (08:24)
[2020-08-07] MEDS: ASPIRIN 81MG CHEW TAB PO SCH (08:24)
[2020-08-07] MEDS: PANTOPRAZOLE 40 MG TAB DR PO SCH (08:24)
[2020-08-07] MEDS: MULTIVITAMIN WITH MINERALS TABLET PO SCH (08:24)
[2020-08-07] MEDS: FLUCONAZOLE 100 MG TAB PO SCH (08:24)
[2020-08-07] MEDS: CLOPIDOGREL 75MG TAB PO SCH (08:25)
[2020-08-07] MEDS: GABAPENTIN 100 MG CAPSULE PO SCH ×3 (08:25→21:37)
[2020-08-07] MEDS: CLONIDINE HCL 0.2 MG TABLET PO SCH ×2 (08:25→21:36)
[2020-08-07] MEDS: PAROXETINE HCL 20 MG TABLET PO SCH ×2 (08:25→21:37)
[2020-08-07] MEDS: PRENATAL VITAMIN RX TABLET PO SCH (08:27)
[2020-08-07] MEDS: ENOXAPARIN SODIUM 100 MG/1 ML SQ SCH ×2 (08:27→21:36)
[2020-08-07 08:35] VITALS: BP 132/72
[2020-08-07] MEDS ORDERED: FUROSEMIDE 40MG VIAL ONE (08:48)
[2020-08-07] MEDS ORDERED: FUROSEMIDE 40MG VIAL IV SCH (09:00)
[2020-08-07 09:21] LABS: ABG BASE EXCESS -1.7 mmol/L (-2.0-3.0); ABG HCO3 21.1 mmol/L (21.0-28.0); ABG OXYGEN SATURATION 95.6 % (95.0-99.0); ABG PCO2 31 mmHg (32-45)
[2020-08-07] MEDS: VANCOMYCIN 500MG+NS 100ML 100 ML IV SCH ×2 (09:59→21:36)
[2020-08-07 14:09] VITALS: BP 140/70
[2020-08-07] MEDS: LEVOFLOXACIN 500 MG/D5W 100 ML 100 ML IV SCH (14:21)
[2020-08-07] MEDS ORDERED: FUROSEMIDE 20MG VIAL IV SCH (15:45)
[2020-08-07] MEDS: GLIPIZIDE 5 MG TABLET PO SCH (16:22)
[2020-08-07] MEDS: HYDROCODONE/ACETAMINOPHEN 5/325 MG TAB PO PRN ×2 (16:48→21:38)
[2020-08-07 18:37] VITALS: BP 132/82
[2020-08-07 20:16] VITALS: BP 122/68
[2020-08-07] MEDS: SEROQUEL 300 MG PO SCH (21:00)
[2020-08-07] MEDS: TRAZODONE HCL 100 MG TABLET PO SCH (21:37)
[2020-08-07] MEDS: ZOLPIDEM TARTRATE 5 MG TAB PO SCH (21:37)
[2020-08-07] MEDS: ATORVASTATIN 40 MG TABLET PO SCH (21:38)
[2020-08-07] MEDS: HYDROXYZINE 25 MG TABLET PO SCH (21:38)
[2020-08-07] MEDS: QUETIAPINE FUMARATE 100 MG TAB PO SCH (21:38)
[2020-08-08] VITALS (7 sets, daily range): BP systolic 115–142; BP diastolic 60–88
[2020-08-08] MEDS: SOLU-MEDROL 40MG VIAL IVP SCH ×3 (00:16→21:49)
[2020-08-08] MEDS: NITROGLYCERIN 1GM OINT 1 INCH/1GM TD SCH ×3 (01:31→22:02)
[2020-08-08] MEDS: MEROPENEM 500 MG VIAL IVP SCH ×3 (03:44→21:49)
[2020-08-08 04:05] LABS: ABG BASE EXCESS -2.5 mmol/L (-2.0-3.0); ABG HCO3 20.4 mmol/L (21.0-28.0); ABG OXYGEN SATURATION 87.1 % (95.0-99.0); ABG PCO2 31 mmHg (32-45)
[2020-08-08 05:54] LABS: HEMATOCRIT 26.7 % (36-48); MEAN CORPUSCULAR HGB CONC 32.6 g/dL (32.0-36.0); RED CELL DISTRIBUTION WIDTH 12.7 % (11.0-15.5); WHITE BLOOD COUNT (AUTO) 19.6 K/uL (4.8-10.8)
[2020-08-08 06:12] LABS: CREATININE 2.1 mg/dL (0.5-1.5); MAGNESIUM 2.1 mg/dL (1.80-2.40); POTASSIUM 5.8 mmol/L (3.5-5.1)
[2020-08-08] MEDS: IPRATROPIUM/ALBUTEROL SULFATE 3 ML SOLUTION IH SCH ×3 (06:21→18:50)
[2020-08-08 06:34] LABS: ABG BASE EXCESS -3.4 mmol/L (-2.0-3.0); ABG HCO3 19.7 mmol/L (21.0-28.0); ABG OXYGEN SATURATION 99.2 % (95.0-99.0); ABG PCO2 30 mmHg (32-45)
[2020-08-08] MEDS: INSULIN GLARGINE 100 UNITS/ML 10 ML VIAL SQ SCH ×2 (07:36→22:01)
[2020-08-08] MEDS: INSULIN HUMULIN R 100 UNIT/ML 3ML SQ SCH ×4 (07:37→22:00)
[2020-08-08] MEDS: PRENATAL VITAMIN RX TABLET PO SCH (09:00)
[2020-08-08] MEDS ORDERED: FUROSEMIDE 40MG VIAL IV SCH (09:00)
[2020-08-08] MEDS: MULTIVITAMIN WITH MINERALS TABLET PO SCH (09:00)
[2020-08-08] MEDS: AMLODIPINE 5 MG TAB PO SCH (09:21)
[2020-08-08] MEDS: FLUCONAZOLE 100 MG TAB PO SCH (09:22)
[2020-08-08] MEDS: ASPIRIN 81MG CHEW TAB PO SCH (09:22)
[2020-08-08] MEDS: PANTOPRAZOLE 40 MG TAB DR PO SCH (09:22)
[2020-08-08] MEDS: PAROXETINE HCL 20 MG TABLET PO SCH ×2 (09:22→21:53)
[2020-08-08] MEDS: CLOPIDOGREL 75MG TAB PO SCH (09:22)
[2020-08-08] MEDS: GABAPENTIN 100 MG CAPSULE PO SCH ×3 (09:26→21:52)
[2020-08-08] MEDS: ENOXAPARIN SODIUM 100 MG/1 ML SQ SCH ×2 (09:29→21:54)
[2020-08-08] MEDS: KAYEXALATE 15GM/60ML PO SCH (09:44)
[2020-08-08] MEDS: VANCOMYCIN 500MG+NS 100ML 100 ML IV SCH ×2 (10:58→21:49)
[2020-08-08] MEDS: CLONIDINE HCL 0.2 MG TABLET PO SCH ×2 (10:59→21:51)
[2020-08-08 15:56] LABS: INR 1.07 (0.85-1.15); PROTHROMBIN TIME 11.6 SEC (9.6-11.6)
[2020-08-08] MEDS: GLIPIZIDE 5 MG TABLET PO SCH (16:24)
[2020-08-08] MEDS: FUROSEMIDE 40MG VIAL IV SCH ×2 (17:26→23:31)
[2020-08-08] MEDS: SEROQUEL 300 MG PO SCH (21:00)
[2020-08-08] MEDS: LEVOFLOXACIN 500 MG/D5W 100 ML 100 ML IV SCH (21:49)
[2020-08-08] MEDS: ATORVASTATIN 40 MG TABLET PO SCH (21:52)
[2020-08-08] MEDS: ZOLPIDEM TARTRATE 5 MG TAB PO SCH (21:52)
[2020-08-08] MEDS: QUETIAPINE FUMARATE 100 MG TAB PO SCH (21:52)
[2020-08-08] MEDS: TRAZODONE HCL 100 MG TABLET PO SCH (21:52)
[2020-08-08] MEDS: HYDROXYZINE 25 MG TABLET PO SCH (21:53)
[2020-08-09] MEDS: IPRATROPIUM/ALBUTEROL SULFATE 3 ML SOLUTION IH SCH ×5 (00:20→23:51)
[2020-08-09 03:37] LABS: ABG HCO3 25.3 mmol/L (21.0-28.0); ABG OXYGEN SATURATION 94.9 % (95.0-99.0); ABG PCO2 39 mmHg (32-45)
[2020-08-09 04:00] VITALS: BP 139/78
[2020-08-09 04:49] LABS: HEMATOCRIT 25.2 % (36-48); MEAN CORPUSCULAR HEMOGLOBIN 29.3 pg (27.0-33.0); MEAN CORPUSCULAR HGB CONC 32.9 g/dL (32.0-36.0); RED BLOOD CELL COUNT(AUTO) 2.83 MIL/uL (4.00-5.50); RED CELL DISTRIBUTION WIDTH 12.5 % (11.0-15.5); WHITE BLOOD COUNT (AUTO) 17.4 K/uL (4.8-10.8)
[2020-08-09 05:02] LABS: CREATININE 1.9 mg/dL (0.5-1.5); POTASSIUM 4.5 mmol/L (3.5-5.1)
[2020-08-09] MEDS: NITROGLYCERIN 1GM OINT 1 INCH/1GM TD SCH ×3 (06:00→21:06)
[2020-08-09] MEDS: MEROPENEM 500 MG VIAL IVP SCH ×3 (06:13→21:06)
[2020-08-09] MEDS: FUROSEMIDE 40MG VIAL IV SCH ×2 (06:13→12:00)
[2020-08-09] MEDS: SOLU-MEDROL 40MG VIAL IVP SCH ×3 (06:14→21:05)
[2020-08-09] MEDS: INSULIN HUMULIN R 100 UNIT/ML 3ML SQ SCH ×5 (06:15→21:09)
[2020-08-09] MEDS: INSULIN GLARGINE 100 UNITS/ML 10 ML VIAL SQ SCH ×2 (06:16→21:10)
[2020-08-09] MEDS: HYDROCODONE/ACETAMINOPHEN 5/325 MG TAB PO PRN (06:56)
[2020-08-09 07:14] LABS: INR 1.05 (0.85-1.15); PROTHROMBIN TIME 11.4 SEC (9.6-11.6)
[2020-08-09 07:15] LABS: PARTIAL THROMBOPLASTIN TIME 31.2 SEC (26.3-35.5)
[2020-08-09 08:00] VITALS: BP 139/59
[2020-08-09] MEDS: PRENATAL VITAMIN RX TABLET PO SCH (09:00)
[2020-08-09] MEDS: MULTIVITAMIN WITH MINERALS TABLET PO SCH (09:00)
[2020-08-09] MEDS: ASPIRIN 81MG CHEW TAB PO SCH (09:00)
[2020-08-09] MEDS: GABAPENTIN 100 MG CAPSULE PO SCH ×3 (09:22→20:57)
[2020-08-09] MEDS: CLONIDINE HCL 0.2 MG TABLET PO SCH ×2 (09:22→20:58)
[2020-08-09] MEDS: PAROXETINE HCL 20 MG TABLET PO SCH ×2 (09:22→20:57)
[2020-08-09] MEDS: AMLODIPINE 5 MG TAB PO SCH (09:23)
[2020-08-09] MEDS: CLOPIDOGREL 75MG TAB PO SCH (09:23)
[2020-08-09] MEDS: FLUCONAZOLE 100 MG TAB PO SCH (09:23)
[2020-08-09] MEDS: PANTOPRAZOLE 40 MG TAB DR PO SCH (09:23)
[2020-08-09] MEDS: VANCOMYCIN 500MG+NS 100ML 100 ML IV SCH ×2 (09:25→20:56)
[2020-08-09] MEDS: KAYEXALATE 15GM/60ML PO SCH (09:30)
[2020-08-09] MEDS: OXYMETAZOLINE HCL SPRAY 15 ML BOTTLE EN SCH ×2 (09:35→20:59)
[2020-08-09] MEDS: NACL NASAL SPRAY 120 SPRAY/BOTTLE NS SCH ×2 (09:36→21:00)
[2020-08-09] MEDS ORDERED: FUROSEMIDE 20MG VIAL IV SCH (10:00)
[2020-08-09 12:00] VITALS: BP 133/66
[2020-08-09 16:00] VITALS: BP 137/76
[2020-08-09] MEDS: GLIPIZIDE 5 MG TABLET PO SCH (16:49)
[2020-08-09 19:00] VITALS: BP 143/77
[2020-08-09] MEDS: LEVOFLOXACIN 500 MG/D5W 100 ML 100 ML IV SCH (20:55)
[2020-08-09] MEDS: QUETIAPINE FUMARATE 100 MG TAB PO SCH (20:57)
[2020-08-09] MEDS: ZOLPIDEM TARTRATE 5 MG TAB PO SCH (20:57)
[2020-08-09] MEDS: HYDROXYZINE 25 MG TABLET PO SCH (20:58)
[2020-08-09] MEDS: TRAZODONE HCL 100 MG TABLET PO SCH (20:58)
[2020-08-09] MEDS: SEROQUEL 300 MG PO SCH (20:59)
[2020-08-09] MEDS: ATORVASTATIN 40 MG TABLET PO SCH (20:59)
[2020-08-09 23:00] VITALS: BP 147/83
[2020-08-10 03:00] VITALS: BP 115/71
[2020-08-10 04:30] LABS: HEMATOCRIT 26.4 % (36-48); MEAN CORPUSCULAR HEMOGLOBIN 29.2 pg (27.0-33.0); MEAN CORPUSCULAR HGB CONC 34.1 g/dL (32.0-36.0); MEAN CORPUSCULAR VOLUME 85.7 fL (79-99); RED BLOOD CELL COUNT(AUTO) 3.08 MIL/uL (4.00-5.50); RED CELL DISTRIBUTION WIDTH 12.5 % (11.0-15.5)
[2020-08-10 04:46] LABS: CREATININE 1.7 mg/dL (0.5-1.5); MAGNESIUM 1.9 mg/dL (1.80-2.40); POTASSIUM 3.9 mmol/L (3.5-5.1)
[2020-08-10 04:53] LABS: INR 1.03 (0.85-1.15); PROTHROMBIN TIME 11.2 SEC (9.6-11.6)
[2020-08-10] MEDS: SOLU-MEDROL 40MG VIAL IVP SCH ×3 (06:27→20:31)
[2020-08-10] MEDS: MEROPENEM 500 MG VIAL IVP SCH ×3 (06:27→20:30)
[2020-08-10] MEDS: NITROGLYCERIN 1GM OINT 1 INCH/1GM TD SCH ×3 (06:28→22:35)
[2020-08-10] MEDS: INSULIN GLARGINE 100 UNITS/ML 10 ML VIAL SQ SCH ×2 (06:33→21:03)
[2020-08-10] MEDS: INSULIN HUMULIN R 100 UNIT/ML 3ML SQ SCH ×7 (06:34→21:02)
[2020-08-10] MEDS: IPRATROPIUM/ALBUTEROL SULFATE 3 ML SOLUTION IH SCH ×4 (06:39→23:16)
[2020-08-10 08:28] VITALS: BP 121/78
[2020-08-10] MEDS: AMLODIPINE 5 MG TAB PO SCH (08:56)
[2020-08-10] MEDS: PANTOPRAZOLE 40 MG TAB DR PO SCH (08:56)
[2020-08-10] MEDS: FLUCONAZOLE 100 MG TAB PO SCH (08:56)
[2020-08-10] MEDS: GABAPENTIN 100 MG CAPSULE PO SCH ×3 (08:56→20:34)
[2020-08-10] MEDS: PAROXETINE HCL 20 MG TABLET PO SCH ×2 (08:57→20:33)
[2020-08-10] MEDS: HYDROCODONE/ACETAMINOPHEN 5/325 MG TAB PO PRN ×2 (08:58→20:33)
[2020-08-10] MEDS: OXYMETAZOLINE HCL SPRAY 15 ML BOTTLE EN SCH ×2 (09:00→20:35)
[2020-08-10] MEDS: NACL NASAL SPRAY 120 SPRAY/BOTTLE NS SCH ×2 (09:00→20:35)
[2020-08-10] MEDS: PRENATAL VITAMIN RX TABLET PO SCH (09:00)
[2020-08-10] MEDS: MULTIVITAMIN WITH MINERALS TABLET PO SCH (09:00)
[2020-08-10] MEDS: VANCOMYCIN 500MG+NS 100ML 100 ML IV SCH ×2 (09:02→20:31)
[2020-08-10] MEDS: KAYEXALATE 15GM/60ML PO SCH (09:04)
[2020-08-10] MEDS: CLONIDINE HCL 0.2 MG TABLET PO SCH ×2 (11:29→20:33)
[2020-08-10 12:08] VITALS: BP 145/72
[2020-08-10] MEDS: GLIPIZIDE 5 MG TABLET PO SCH (15:34)
[2020-08-10 16:15] VITALS: BP 141/83
[2020-08-10 20:00] VITALS: BP 143/78
[2020-08-10] MEDS: HYDROXYZINE 25 MG TABLET PO SCH (20:31)
[2020-08-10] MEDS: ATORVASTATIN 40 MG TABLET PO SCH (20:31)
[2020-08-10] MEDS: LEVOFLOXACIN 500 MG/D5W 100 ML 100 ML IV SCH (20:31)
[2020-08-10] MEDS: QUETIAPINE FUMARATE 100 MG TAB PO SCH (20:32)
[2020-08-10] MEDS: TRAZODONE HCL 100 MG TABLET PO SCH (20:32)
[2020-08-10] MEDS: ZOLPIDEM TARTRATE 5 MG TAB PO SCH (20:34)
[2020-08-10] MEDS: SEROQUEL 300 MG PO SCH (21:00)
[2020-08-10 23:39] VITALS: BP 144/79
[2020-08-11 04:01] LABS: HEMATOCRIT 26.8 % (36-48); MEAN CORPUSCULAR HGB CONC 32.8 g/dL (32.0-36.0); MEAN CORPUSCULAR VOLUME 88.4 fL (79-99); RED BLOOD CELL COUNT(AUTO) 3.03 MIL/uL (4.00-5.50); RED CELL DISTRIBUTION WIDTH 12.5 % (11.0-15.5); WHITE BLOOD COUNT (AUTO) 20.3 K/uL (4.8-10.8)
[2020-08-11 04:02] VITALS: BP 128/78
[2020-08-11 04:16] LABS: CREATININE 1.7 mg/dL (0.5-1.5); POTASSIUM 4.5 mmol/L (3.5-5.1)
[2020-08-11] MEDS: SOLU-MEDROL 40MG VIAL IVP SCH (06:04)
[2020-08-11] MEDS: MEROPENEM 500 MG VIAL IVP SCH ×3 (06:04→21:19)
[2020-08-11] MEDS: INSULIN GLARGINE 100 UNITS/ML 10 ML VIAL SQ SCH ×2 (06:05→21:46)
[2020-08-11] MEDS: INSULIN HUMULIN R 100 UNIT/ML 3ML SQ SCH ×11 (06:06→21:46)
[2020-08-11] MEDS: NITROGLYCERIN 1GM OINT 1 INCH/1GM TD SCH ×3 (06:08→21:20)
[2020-08-11] MEDS: IPRATROPIUM/ALBUTEROL SULFATE 3 ML SOLUTION IH SCH ×3 (06:57→18:14)
[2020-08-11] MEDS: VANCOMYCIN 500MG+NS 100ML 100 ML IV SCH ×2 (08:20→21:18)
[2020-08-11] MEDS: GABAPENTIN 100 MG CAPSULE PO SCH ×3 (08:20→21:10)
[2020-08-11] MEDS: AMLODIPINE 5 MG TAB PO SCH (08:20)
[2020-08-11] MEDS: PRENATAL VITAMIN RX TABLET PO SCH (08:20)
[2020-08-11] MEDS: PAROXETINE HCL 20 MG TABLET PO SCH ×2 (08:20→21:10)
[2020-08-11] MEDS: NACL NASAL SPRAY 120 SPRAY/BOTTLE NS SCH ×2 (08:21→21:18)
[2020-08-11] MEDS: OXYMETAZOLINE HCL SPRAY 15 ML BOTTLE EN SCH (08:21)
[2020-08-11] MEDS: FLUCONAZOLE 100 MG TAB PO SCH (08:21)
[2020-08-11] MEDS: PANTOPRAZOLE 40 MG TAB DR PO SCH (08:21)
[2020-08-11] MEDS: MULTIVITAMIN WITH MINERALS TABLET PO SCH (08:24)
[2020-08-11] MEDS: KAYEXALATE 15GM/60ML PO SCH (08:25)
[2020-08-11] MEDS: CLONIDINE HCL 0.2 MG TABLET PO SCH ×2 (08:25→21:25)
[2020-08-11 08:43] VITALS: BP 142/86
[2020-08-11 12:10] VITALS: BP 139/70
[2020-08-11 15:30] VITALS: BP 135/79
[2020-08-11] MEDS: GLIPIZIDE 5 MG TABLET PO SCH (16:54)
[2020-08-11 20:00] VITALS: BP 144/81
[2020-08-11] MEDS: SEROQUEL 300 MG PO SCH (21:00)
[2020-08-11] MEDS: HYDROXYZINE 25 MG TABLET PO SCH (21:09)
[2020-08-11] MEDS: ATORVASTATIN 40 MG TABLET PO SCH (21:09)
[2020-08-11] MEDS: ZOLPIDEM TARTRATE 5 MG TAB PO SCH (21:09)
[2020-08-11] MEDS: QUETIAPINE FUMARATE 100 MG TAB PO SCH (21:09)
[2020-08-11] MEDS: TRAZODONE HCL 100 MG TABLET PO SCH (21:11)
[2020-08-11] MEDS: LEVOFLOXACIN 500 MG/D5W 100 ML 100 ML IV SCH (21:11)
[2020-08-12] VITALS (7 sets, daily range): BP systolic 116–160; BP diastolic 72–93
[2020-08-12] MEDS: IPRATROPIUM/ALBUTEROL SULFATE 3 ML SOLUTION IH SCH ×5 (00:08→23:08)
[2020-08-12 04:55] LABS: MEAN CORPUSCULAR HEMOGLOBIN 28.9 pg (27.0-33.0); MEAN CORPUSCULAR HGB CONC 33.2 g/dL (32.0-36.0); MEAN CORPUSCULAR VOLUME 86.8 fL (79-99); RED BLOOD CELL COUNT(AUTO) 3.57 MIL/uL (4.00-5.50); RED CELL DISTRIBUTION WIDTH 12.6 % (11.0-15.5)
[2020-08-12 05:06] LABS: CREATININE 1.6 mg/dL (0.5-1.5); POTASSIUM 4.6 mmol/L (3.5-5.1)
[2020-08-12] MEDS: INSULIN HUMULIN R 100 UNIT/ML 3ML SQ SCH ×11 (07:30→22:16)
[2020-08-12] MEDS: NACL NASAL SPRAY 120 SPRAY/BOTTLE NS SCH ×2 (09:00→22:29)
[2020-08-12] MEDS: PRENATAL VITAMIN RX TABLET PO SCH (09:00)
[2020-08-12] MEDS: MULTIVITAMIN WITH MINERALS TABLET PO SCH (09:00)
[2020-08-12] MEDS: FLUCONAZOLE 100 MG TAB PO SCH (09:24)
[2020-08-12] MEDS: GABAPENTIN 100 MG CAPSULE PO SCH ×3 (09:25→21:08)
[2020-08-12] MEDS: HYDROCODONE/ACETAMINOPHEN 5/325 MG TAB PO PRN ×3 (09:25→15:43)
[2020-08-12] MEDS: PANTOPRAZOLE 40 MG TAB DR PO SCH (09:25)
[2020-08-12] MEDS: PAROXETINE HCL 20 MG TABLET PO SCH ×2 (09:26→21:08)
[2020-08-12] MEDS: AMLODIPINE 5 MG TAB PO SCH (09:26)
[2020-08-12] MEDS: CLOPIDOGREL 75MG TAB PO SCH (09:26)
[2020-08-12] MEDS: CLONIDINE HCL 0.2 MG TABLET PO SCH ×2 (09:27→21:11)
[2020-08-12] MEDS: MEROPENEM 500 MG VIAL IVP SCH ×3 (09:28→22:29)
[2020-08-12] MEDS: NITROGLYCERIN 1GM OINT 1 INCH/1GM TD SCH ×3 (09:29→22:30)
[2020-08-12] MEDS: VANCOMYCIN 500MG+NS 100ML 100 ML IV SCH ×2 (09:30→21:07)
[2020-08-12] MEDS: KAYEXALATE 15GM/60ML PO SCH (09:30)
[2020-08-12] MEDS: INSULIN GLARGINE 100 UNITS/ML 10 ML VIAL SQ SCH ×2 (09:47→22:17)
[2020-08-12] MEDS: GLIPIZIDE 5 MG TABLET PO SCH (17:28)
[2020-08-12] MEDS: SEROQUEL 300 MG PO SCH (21:00)
[2020-08-12] MEDS ORDERED: HYDROCODONE/ACETAMINOPHEN 5/325 MG TAB ONE (21:05)
[2020-08-12] MEDS: LEVOFLOXACIN 500 MG/D5W 100 ML 100 ML IV SCH (21:07)
[2020-08-12] MEDS: ATORVASTATIN 40 MG TABLET PO SCH (21:08)
[2020-08-12] MEDS: HYDROXYZINE 25 MG TABLET PO SCH (21:08)
[2020-08-12] MEDS: ZOLPIDEM TARTRATE 5 MG TAB PO SCH (21:09)
[2020-08-12] MEDS: QUETIAPINE FUMARATE 100 MG TAB PO SCH (21:10)
[2020-08-12] MEDS: TRAZODONE HCL 100 MG TABLET PO SCH (21:12)
[2020-08-13 03:44] LABS: BASOPHILS % (AUTO) 0.2 % (0.0-5.0); HEMATOCRIT 27.4 % (36-48); LYMPHOCYTES % (AUTO) 21.3 % (21.0-51.0); MEAN CORPUSCULAR HEMOGLOBIN 28.3 pg (27.0-33.0); MEAN CORPUSCULAR HGB CONC 31.8 g/dL (32.0-36.0); MEAN CORPUSCULAR VOLUME 89.3 fL (79-99); NEUTROPHILS % (AUTO) 60.9 % (40.0-77.0); PLATELET COUNT (AUTO) 373 K/uL (130-400); RED BLOOD CELL COUNT(AUTO) 3.07 MIL/uL (4.00-5.50); RED CELL DISTRIBUTION WIDTH 12.8 % (11.0-15.5); WHITE BLOOD COUNT (AUTO) 14.5 K/uL (4.8-10.8)
[2020-08-13 03:52] LABS: CREATININE 1.6 mg/dL (0.5-1.5); POTASSIUM 4.5 mmol/L (3.5-5.1)
[2020-08-13 04:39] VITALS: BP 138/85
[2020-08-13] MEDS: INSULIN GLARGINE 100 UNITS/ML 10 ML VIAL SQ SCH ×2 (06:07→21:28)
[2020-08-13] MEDS: INSULIN HUMULIN R 100 UNIT/ML 3ML SQ SCH ×8 (06:09→21:00)
[2020-08-13] MEDS: NITROGLYCERIN 1GM OINT 1 INCH/1GM TD SCH ×3 (06:12→21:19)
[2020-08-13] MEDS: IPRATROPIUM/ALBUTEROL SULFATE 3 ML SOLUTION IH SCH ×3 (06:19→18:57)
[2020-08-13] MEDS: MEROPENEM 500 MG VIAL IVP SCH ×2 (06:19→14:00)
[2020-08-13 07:00] VITALS: BP 132/72
[2020-08-13] MEDS: PRENATAL VITAMIN RX TABLET PO SCH (09:00)
[2020-08-13] MEDS: MULTIVITAMIN WITH MINERALS TABLET PO SCH (09:00)
[2020-08-13] MEDS: NACL NASAL SPRAY 120 SPRAY/BOTTLE NS SCH ×2 (09:00→21:00)
[2020-08-13] MEDS: KAYEXALATE 15GM/60ML PO SCH (09:30)
[2020-08-13] MEDS: CLOPIDOGREL 75MG TAB PO SCH (09:34)
[2020-08-13] MEDS: PAROXETINE HCL 20 MG TABLET PO SCH ×2 (09:34→21:17)
[2020-08-13] MEDS: AMLODIPINE 5 MG TAB PO SCH (09:34)
[2020-08-13] MEDS: FLUCONAZOLE 100 MG TAB PO SCH (09:34)
[2020-08-13] MEDS: CLONIDINE HCL 0.2 MG TABLET PO SCH ×2 (09:34→21:17)
[2020-08-13] MEDS: GABAPENTIN 100 MG CAPSULE PO SCH ×3 (09:35→21:20)
[2020-08-13] MEDS: PANTOPRAZOLE 40 MG TAB DR PO SCH (09:35)
[2020-08-13] MEDS: VANCOMYCIN 500MG+NS 100ML 100 ML IV SCH (09:39)
[2020-08-13] MEDS: HYDROCODONE/ACETAMINOPHEN 5/325 MG TAB PO PRN ×2 (10:53→21:18)
[2020-08-13 11:00] VITALS: BP 144/76
[2020-08-13] MEDS: METOPROLOL SUCCINATE 50 MG TAB.SR.24H PO SCH (11:48)
[2020-08-13] MEDS ORDERED: PANT40TA PO (12:00)
[2020-08-13] MEDS ORDERED: INSLAN SQ (12:00)
[2020-08-13] MEDS ORDERED: AMLO5TAB4 PO (12:00)
[2020-08-13] MEDS ORDERED: GABA100C PO (12:00)
[2020-08-13] MEDS ORDERED: ATOR40TA69 PO (12:00)
[2020-08-13] MEDS ORDERED: HYDR-3421 PO (12:00)
[2020-08-13] MEDS ORDERED: PARO-66 PO (12:00)
[2020-08-13] MEDS ORDERED: GLIP5TAB11 PO (12:00)
[2020-08-13] MEDS ORDERED: METO-408 PO (12:00)
[2020-08-13] MEDS ORDERED: CLOP75TA14 PO (12:00)
[2020-08-13] MEDS ORDERED: CLON-353 PO (12:00)
[2020-08-13] MEDS ORDERED: ASPI-1005 PO (12:00)
[2020-08-13 16:00] VITALS: BP 126/70
[2020-08-13] MEDS: GLIPIZIDE 5 MG TABLET PO SCH (16:43)
[2020-08-13 19:23] VITALS: BP 136/63
[2020-08-13] MEDS: SEROQUEL 300 MG PO SCH (21:00)
[2020-08-13] MEDS: TRAZODONE HCL 100 MG TABLET PO SCH (21:17)
[2020-08-13] MEDS: ZOLPIDEM TARTRATE 5 MG TAB PO SCH (21:17)
[2020-08-13] MEDS: QUETIAPINE FUMARATE 100 MG TAB PO SCH (21:17)
[2020-08-13] MEDS: ATORVASTATIN 40 MG TABLET PO SCH (21:17)
[2020-08-13] MEDS: HYDROXYZINE 25 MG TABLET PO SCH (22:12)
[2020-08-13 23:20] VITALS: BP 109/63
[2020-08-14] MEDS: IPRATROPIUM/ALBUTEROL SULFATE 3 ML SOLUTION IH SCH ×3 (00:48→12:18)
[2020-08-14] MEDS: HYDROCODONE/ACETAMINOPHEN 5/325 MG TAB PO PRN ×2 (03:45→12:39)
[2020-08-14 03:52] VITALS: BP 129/71
[2020-08-14] MEDS: NITROGLYCERIN 1GM OINT 1 INCH/1GM TD SCH ×2 (05:56→14:32)
[2020-08-14] MEDS: INSULIN HUMULIN R 100 UNIT/ML 3ML SQ SCH ×6 (06:04→16:32)
[2020-08-14] MEDS: INSULIN GLARGINE 100 UNITS/ML 10 ML VIAL SQ SCH (06:09)
[2020-08-14 07:00] VITALS: BP 101/56
[2020-08-14] MEDS: NACL NASAL SPRAY 120 SPRAY/BOTTLE NS SCH (09:00)
[2020-08-14] MEDS: MULTIVITAMIN WITH MINERALS TABLET PO SCH (09:00)
[2020-08-14] MEDS: PRENATAL VITAMIN RX TABLET PO SCH (09:00)
[2020-08-14] MEDS: PANTOPRAZOLE 40 MG TAB DR PO SCH (09:08)
[2020-08-14] MEDS: AMLODIPINE 5 MG TAB PO SCH (09:08)
[2020-08-14] MEDS: CLOPIDOGREL 75MG TAB PO SCH (09:08)
[2020-08-14] MEDS: GABAPENTIN 100 MG CAPSULE PO SCH ×2 (09:08→14:26)
[2020-08-14] MEDS: PAROXETINE HCL 20 MG TABLET PO SCH (09:09)
[2020-08-14] MEDS: CLONIDINE HCL 0.2 MG TABLET PO SCH (09:09)
[2020-08-14] MEDS: METOPROLOL SUCCINATE 50 MG TAB.SR.24H PO SCH (09:09)
[2020-08-14] MEDS: KAYEXALATE 15GM/60ML PO SCH (09:12)
[2020-08-14 11:00] VITALS: BP 129/75
[2020-08-14 15:00] VITALS: BP 132/75
[2020-08-14] MEDS: GLIPIZIDE 5 MG TABLET PO SCH (16:30)
[2020-08-21] MEDS ORDERED: QUET100T34 PO (16:15)
[2020-08-21] MEDS ORDERED: TRAZ300T2 PO (16:16)
[2020-08-21] MEDS ORDERED: POLY17PO4 PO (16:17)
[2020-08-21] MEDS ORDERED: PREN-64 PO (16:19)
[2020-08-21] MEDS ORDERED: LACT10SO9 PO (16:28)
[2020-08-22] MEDS ORDERED: HYDR-3421 PO (21:24)
[2020-08-22] MEDS ORDERED: ZOLP5TAB8 PO (21:24)
[2020-08-22] MEDS ORDERED: QUET300T71 PO (21:24)
[2020-08-31] MEDS ORDERED: FERR-72 PO (05:05)
[2020-08-31] MEDS ORDERED: INSU100I21 SQ (05:05)
[2020-08-31] MEDS ORDERED: MELA5TAB14 PO (05:05)
[2020-08-31] MEDS ORDERED: CARV6.2579 PO (05:05)
[2020-08-31] MEDS ORDERED: ACET-3194 PO (05:05)
[2020-08-31] MEDS ORDERED: [UNRECOGNIZED DRUG - CODE] IV (05:05)
[2020-08-31] MEDS ORDERED: VITA1CAP17 PO (05:05)
[2020-08-31] MEDS ORDERED: GABA300C PO (05:05)
[2020-08-31] MEDS ORDERED: ERGO500093 PO (05:05)
[2020-08-31] MEDS ORDERED: DULO30CA52 PO (05:05)
[2020-08-31] MEDS ORDERED: FURO40TA5 PO (05:05)
[2020-08-31] MEDS ORDERED: LORA-192 PO (05:05)
[2020-08-31] MEDS ORDERED: TRAZ300T2 PO (05:05)
[2020-08-31] MEDS ORDERED: LEVO50CA4 PO (05:05)
[2020-08-31] MEDS ORDERED: PREN-61 PO (05:05)
[2020-08-31] MEDS ORDERED: INSU100V3 IJ (05:05)
[2020-12-01] MEDS ORDERED: CITA-107 PO (20:36)
[2020-12-01] MEDS ORDERED: LISI20TA24 PO (20:36)
[2020-12-01] MEDS ORDERED: METF-446 PO (20:36)
[2020-12-01] MEDS ORDERED: HYDR-3421 PO (20:36)
[2020-12-01] MEDS ORDERED: GABA-529 PO (20:36)
[2020-12-01] MEDS ORDERED: ATOR20TA65 PO (20:36)
[2020-12-01] MEDS ORDERED: INSU100I35 SQ (20:36)
[2020-12-01] MEDS ORDERED: FENO145T26 PO (20:36)
[2020-12-01] MEDS ORDERED: TRAZ150T79 PO (20:36)
[2020-12-01] MEDS ORDERED: LORA-192 PO (20:36)
[2020-12-01] MEDS ORDERED: QUET300T19 PO (20:36)
[2020-12-01] MEDS ORDERED: TRAZ-187 PO (20:36)
[2020-12-01] MEDS ORDERED: FAMO20TA8 PO (20:36)
[2020-12-01] MEDS ORDERED: GLIP10TA9 PO (20:36)
[2020-12-02] MEDS ORDERED: PROM25TA7 PO (01:28)
[2020-12-02] MEDS ORDERED: CEPH500C2 PO (01:28)
[2020-12-02] MEDS ORDERED: LOPE1TAB PO (01:28)
== END 2020-08-14 16:55 | DRG 616 ==
LOC: EDH 14:32 → EDHIP 16:23 → 3DH 07-26 01:09 → 4CH 08-08 07:27
PROVIDERS: ADMIT Internal Medicine; ATTEND Internal Medicine
PROC: 0QBM0ZZ Excision of Left Tarsal, Open Approach (ICD-10-PCS; 2020-08-02)
PROC: 0Y6N0Z0 Detachment at Left Foot, Complete, Open Approach (ICD-10-PCS; principal; 2020-08-02 07:50)
PROC: 5A09357 Assistance with Respiratory Ventilation, Less than 24 Consecutive Hours, Continuous Positive Airway Pressure (ICD-10-PCS; 2020-08-08)
PROC: 5A09357 Assistance with Respiratory Ventilation, Less than 24 Consecutive Hours, Continuous Positive Airway Pressure (ICD-10-PCS; 2020-08-09)
PROC: 5A09357 Assistance with Respiratory Ventilation, Less than 24 Consecutive Hours, Continuous Positive Airway Pressure (ICD-10-PCS; 2020-08-11)
PROC: 02HV33Z Insertion of Infusion Device into Superior Vena Cava, Percutaneous Approach (ICD-10-PCS; 2020-08-11)
DX: E11.69 Type 2 diabetes mellitus with other specified complication (principal); A41.9 Sepsis, unspecified organism; J96.01 Acute respiratory failure with hypoxia; J18.9 Pneumonia, unspecified organism; I50.31 Acute diastolic (congestive) heart failure; A48.0 Gas gangrene; E11.52 Type 2 diabetes mellitus with diabetic peripheral angiopathy with gangrene; E87.1 Hypo-osmolality and hyponatremia; L03.90 Cellulitis, unspecified; I13.0 Hypertensive heart and chronic kidney disease with heart failure and stage 1 through stage 4 chronic kidney disease, or unspecified chronic kidney disease; M86.8X7 Other osteomyelitis, ankle and foot; N17.9 Acute kidney failure, unspecified; T87.89 Other complications of amputation stump; E11.621 Type 2 diabetes mellitus with foot ulcer; E78.5 Hyperlipidemia, unspecified; G89.29 Other chronic pain; D64.9 Anemia, unspecified; E11.22 Type 2 diabetes mellitus with diabetic chronic kidney disease; E66.9 Obesity, unspecified; E87.5 Hyperkalemia; F32.9 Major depressive disorder, single episode, unspecified; F41.9 Anxiety disorder, unspecified; L97.529 Non-pressure chronic ulcer of other part of left foot with unspecified severity; N18.30 Chronic kidney disease, stage 3 unspecified; R04.0 Epistaxis; Y83.5 Amputation of limb(s) as the cause of abnormal reaction of the patient, or of later complication, without mention of misadventure at the time of the procedure; Z20.822 Contact with and (suspected) exposure to COVID-19; Y92.89 Other specified places as the place of occurrence of the external cause; Z88.2 Allergy status to sulfonamides; Z88.8 Allergy status to other drugs, medicaments and biological substances; Z68.31 Body mass index [BMI] 31.0-31.9, adult; Z74.01 Bed confinement status; Z79.02 Long term (current) use of antithrombotics/antiplatelets; Z79.4 Long term (current) use of insulin; Z79.899 Other long term (current) drug therapy; Z90.710 Acquired absence of both cervix and uterus; Z89.519 Acquired absence of unspecified leg below knee; Z83.3 Family history of diabetes mellitus
CPT/HCPCS: 36415; 36600; 71045; 71250; 73630; 73718; 78582; 80048; 80053; 80202; 81001; 82435; 82550; 82803; 82947; 82948; 83036; 83605; 83735; 83880; 84100; 84132; 84145; 84295; 84484; 85018; 85025; 85027; 85378; 85610; 85730; 86140; 87040; 87070; 87076; 87077; 87088; 87186; 87205; 87426; 88304; 88311; 93005; 93306; 93356; 93926; 93970; 94640; 94660; 94664; 94667; 94668; 97039; A9540; A9558; C1894; G0378; J0456; J1170; J1644; J1650; J1815; J1885; J1940; J1956; J2185; J2250; J2270; J2405; J2543; J2704; J2920; J3010; J3370; J3475; J3490; J7040; J7050; J8540; U0003

== ENCOUNTER 2021-02-02 22:16 | Inpatient (IN) | payer OTHER, MEDICARE ==
[~2021-02-02] VITALS: Ht 160 cm; Wt 85.3 kg
[~2021-02-02 22:16] MED LIST changes: +ACET-3194 PO; +ATOR20TA65 PO; +CEPH500C2 PO; +CITA-107 PO; -CRAN1TAB2 PO; -CRAN400C PO; +ERGO500093 PO; +FAMO20TA8 PO; +FENO145T26 PO; +GABA300C PO; +HYDR-3421 PO; -HYDR-3830 PO; -HYDR-4064 PO; -IBUP-2077 PO; +INSU100I35 SQ; +LEVO50CA4 PO; +LISI20TA24 PO; +LOPE1TAB PO; +LORA-192 PO; -METR500T PO; -MULT-1283 PO; -PARO40TA72 PO; -PREN-61 PO; +PROM25TA7 PO; +QUET300T19 PO; -QUET300T5 PO; -TRAZ150T79 PO; +TRAZ300T2 PO; +ZOLP5TAB8 PO
[2021-02-02 23:00] LABS: ABG OXYGEN SATURATION 54.4 % (95.0-99.0); BASE EXCESS,VENOUS BLOOD GAS -1.2 (-2.0-3.0); HCO3,VENOUS BLOOD GAS 20.7 (21.0-28.0); PCO2,VENOUS BLOOD GAS 28 (32-45); PH,VENOUS BLOOD GAS 7.488 (7.350-7.450)
[2021-02-02] MEDS ORDERED: 0.9%NACL 1000ML 1,000 ML IV ONE ×2 (23:00)
[2021-02-02] MEDS ORDERED: METOCLOPRAMIDE 10 MG/2 ML VIAL IVP ONE (23:00)
[2021-02-02] MEDS ORDERED: ONDANSETRON 4MG INJ IVP ONE (23:00)
[2021-02-02 23:06] LABS: BASOPHILS % (AUTO) 0.9 % (0.0-5.0); EOSINOPHILS % (AUTO) 2.4 % (0.0-8.0); HEMATOCRIT 32.1 % (36-48); LYMPHOCYTES % (AUTO) 16.2 % (21.0-51.0); MEAN CORPUSCULAR HEMOGLOBIN 29.8 pg (27.0-33.0); MEAN CORPUSCULAR HGB CONC 36.4 g/dL (32.0-36.0); MEAN CORPUSCULAR VOLUME 81.7 fL (79-99); MONOCYTES % (AUTO) 7.5 % (3.0-13.0); NEUTROPHILS % (AUTO) 72.3 % (40.0-77.0); PLATELET COUNT (AUTO) 320 K/uL (130-400); RED BLOOD CELL COUNT(AUTO) 3.93 MIL/uL (4.00-5.50); RED CELL DISTRIBUTION WIDTH 12.9 % (11.0-15.5); WHITE BLOOD COUNT (AUTO) 8.5 K/uL (4.8-10.8)
[2021-02-02 23:28] LABS: ALBUMIN 2.1 g/dL (3.5-5.0); BILIRUBIN,TOTAL 0.3 mg/dL (0.2-1.0); CREATININE 1.7 mg/dL (0.5-1.5)
[2021-02-02 23:31] LABS: POTASSIUM 2.3 mmol/L (3.5-5.1)
[2021-02-03] MEDS ORDERED: 0.9%NACL 1000ML 1,000 ML IV ONE
[2021-02-03] MEDS ORDERED: INSULIN HUMULIN R 100 UNIT/ML 3ML IV ONE
[2021-02-03 00:54] LABS: APPEARANCE,URINE Clear (CLEAR); BILIRUBIN,URINE Negative (NEGATIVE); COLOR,URINE Yellow (YELLOW); GLUCOSE, URINE (UA) >=1000 mg/dL (NEGATIVE); KETONES,URINE 15 mg/dL (NEGATIVE); LEUKOCYTE ESTERASE ,URINE Negative (NEGATIVE); NITRATE,URINE Negative (NEGATIVE); OCCULT BLOOD,URINE Trace (NEGATIVE); PROTEIN,URINE 300 mg/dL (NEGATIVE); UROBILINOGEN,URINE 0.2 mg/dL (0.2-1.0)
[2021-02-03 01:13] LABS: BACTERIA,URINE None Seen /HPF (None Seen); RBC,URINE 0-1 /HPF (0-1); SQUAMOUS EPITHELIAL CELL,UR Few /HPF (0-2)
[2021-02-03 02:03] LABS: ABG BASE EXCESS -4.9 mmol/L (-2.0-3.0); ABG HCO3 17.9 mmol/L (21.0-28.0); ABG OXYGEN SATURATION 98.7 % (95.0-99.0); ABG PCO2 28 mmHg (32-45)
[2021-02-03 02:05] LABS: ABG BASE EXCESS -3.4 mmol/L (-2.0-3.0); ABG HCO3 19.4 mmol/L (21.0-28.0); ABG PCO2 29 mmHg (32-45)
[2021-02-03] MEDS ORDERED: POTASSIUM CHLORIDE 20MEQ/100ML 100 ML IV ONE (05:25)
[2021-02-03] MEDS ORDERED: POTASSIUM CHLORIDE 10MEQ/100ML 100 ML IV PRN (08:00)
[2021-02-03] MEDS ORDERED: LIDOCAINE HCL-MPF 1% 2ML VIAL IV PRN (08:00)
[2021-02-03] MEDS ORDERED: DEXTROSE 50%-WATER 50 ML DISP.SYRIN IV PRN ×2 (08:00→11:00)
[2021-02-03] MEDS ORDERED: GLUCAGON 1MG KIT 1 MG ML IM PRN ×2 (08:00→11:00)
[2021-02-03] MEDS ORDERED: POTASSIUM CHLORIDE 10% ELIXIR 20 MEQ/15 ML UDCUP PO PRN (08:00)
[2021-02-03] MEDS ORDERED: LACTATED RINGERS 1000ML 1,000 ML IV SCH (09:00)
[2021-02-03] MEDS: INSULIN GLARGINE 100 UNITS/ML 10 ML VIAL SQ SCH (09:07)
[2021-02-03] MEDS: FAMOTIDINE 20MG VIAL IV SCH (09:07)
[2021-02-03 09:15] LABS: HEMATOCRIT 29.5 % (36-48); MEAN CORPUSCULAR HEMOGLOBIN 29.9 pg (27.0-33.0); MEAN CORPUSCULAR HGB CONC 35.3 g/dL (32.0-36.0); MEAN CORPUSCULAR VOLUME 84.8 fL (79-99); RED BLOOD CELL COUNT(AUTO) 3.48 MIL/uL (4.00-5.50); RED CELL DISTRIBUTION WIDTH 13.4 % (11.0-15.5); WHITE BLOOD COUNT (AUTO) 7.8 K/uL (4.8-10.8)
[2021-02-03 09:23] LABS: CREATININE 1.4 mg/dL (0.5-1.5); MAGNESIUM 1.7 mg/dL (1.80-2.40); PHOSPHORUS 3.2 mg/dL (2.5-4.9)
[2021-02-03 09:26] LABS: POTASSIUM 2.5 mmol/L (3.5-5.1)
[2021-02-03 09:26] LABS: HEMOGLOBIN A1C 9.7 % (4.0-6.0)
[2021-02-03] MEDS ORDERED: 0.9%NACL 100ML 100 ML ONE (10:30)
[2021-02-03] MEDS ORDERED: IPRATROPIUM/ALBUTEROL SULFATE 3 ML SOLUTION IH ONE (10:43)
[2021-02-03] MEDS: INSULIN REGULAR, HUMAN 3ML 100 UNIT in 0.9%NACL 100ML 99 ML IV PRN ×8 (10:55→14:17)
[2021-02-03] MEDS: LIDOCAINE HCL-MPF 1% 2ML VIAL IV PRN ×3 (10:56→17:22)
[2021-02-03] MEDS: POTASSIUM CHLORIDE 10MEQ/100ML 100 ML IV PRN ×3 (10:56→17:21)
[2021-02-03] MEDS ORDERED: POTASSIUM PHOS 15 mMOL+NS250ML 250 ML IV PRN (11:00)
[2021-02-03 11:06] LABS: ABG BASE EXCESS -3.9 mmol/L (-2.0-3.0); ABG HCO3 18.7 mmol/L (21.0-28.0); ABG OXYGEN SATURATION 97.9 % (95.0-99.0); ABG PCO2 28 mmHg (32-45)
[2021-02-03] MEDS ORDERED: INSULIN HUMULIN R 100 UNIT/ML 3ML SQ SCH (11:30)
[2021-02-03] MEDS: INSULIN R PO SS2 SQ SCH ×3 (11:30→21:00)
[2021-02-03] MEDS: LABETALOL 20MG VIAL IV PRN (12:13)
[2021-02-03] MEDS: 0.9%NACL 1000ML 1,000 ML IV SCH ×2 (12:26→19:07)
[2021-02-03 13:47] LABS: CREATININE 1.4 mg/dL (0.5-1.5); MAGNESIUM 1.6 mg/dL (1.80-2.40); PHOSPHORUS 2.6 mg/dL (2.5-4.9)
[2021-02-03 13:49] LABS: POTASSIUM 2.4 mmol/L (3.5-5.1)
[2021-02-03] MEDS: MAGNESIUM 2GM PREMIX 50ML 50 ML IV PRN (14:07)
[2021-02-03] MEDS: IPRATROPIUM/ALBUTEROL SULFATE 3 ML SOLUTION IH SCH ×2 (14:42→18:00)
[2021-02-03 16:33] LABS: CREATININE 1.3 mg/dL (0.5-1.5); MAGNESIUM 2.2 mg/dL (1.80-2.40); PHOSPHORUS 2.9 mg/dL (2.5-4.9)
[2021-02-03 16:39] LABS: POTASSIUM 2.3 mmol/L (3.5-5.1)
[2021-02-03] MEDS: KCL 20 MEQ ERTAB PO PRN (17:21)
[2021-02-03] MEDS ORDERED: ONDANSETRON 4MG INJ ONE (18:24)
[2021-02-03] MEDS ORDERED: NON-FORMULARY MEDICATION 1 EACH (Quetiapine Fumarate 300 MG) PO SCH (21:00)
[2021-02-03 21:11] LABS: CREATININE 1.3 mg/dL (0.5-1.5); MAGNESIUM 2.1 mg/dL (1.80-2.40); PHOSPHORUS 2.7 mg/dL (2.5-4.9)
[2021-02-03 21:19] LABS: POTASSIUM 2.3 mmol/L (3.5-5.1)
[2021-02-04] MEDS: QUETIAPINE FUMARATE 100 MG TAB PO SCH ×2 (00:30→20:42)
[2021-02-04] MEDS: INSULIN GLARGINE 100 UNITS/ML 10 ML VIAL SQ SCH ×3 (00:30→20:43)
[2021-02-04] MEDS: LISINOPRIL 20 MG TABLET PO SCH ×3 (00:30→20:42)
[2021-02-04 00:44] LABS: CREATININE 1.3 mg/dL (0.5-1.5); PHOSPHORUS 2.8 mg/dL (2.5-4.9)
[2021-02-04 00:46] LABS: POTASSIUM 2.3 mmol/L (3.5-5.1)
[2021-02-04] MEDS ORDERED: NS-20 MEQ KCL 1000ML 1,000 ML IV SCH (06:00)
[2021-02-04 06:47] LABS: ALBUMIN 1.6 g/dL (3.5-5.0); BILIRUBIN,TOTAL 0.2 mg/dL (0.2-1.0); CREATININE 1.2 mg/dL (0.5-1.5); MAGNESIUM 1.9 mg/dL (1.80-2.40); TOTAL PROTEIN, SERUM 4.5 g/dL (6.0-8.3)
[2021-02-04] MEDS: LEVOTHYROXINE 50 MCG TABLET PO SCH (06:47)
[2021-02-04 06:48] LABS: POTASSIUM 2.4 mmol/L (3.5-5.1)
[2021-02-04 07:30] LABS: MEAN CORPUSCULAR HEMOGLOBIN 29.4 pg (27.0-33.0); MEAN CORPUSCULAR HGB CONC 34.6 g/dL (32.0-36.0); MEAN CORPUSCULAR VOLUME 84.8 fL (79-99); RED BLOOD CELL COUNT(AUTO) 3.3 MIL/uL (4.00-5.50); RED CELL DISTRIBUTION WIDTH 13.6 % (11.0-15.5); WHITE BLOOD COUNT (AUTO) 7.1 K/uL (4.8-10.8)
[2021-02-04] MEDS: INSULIN R PO SS2 SQ SCH ×4 (07:30→20:43)
[2021-02-04] MEDS: IPRATROPIUM/ALBUTEROL SULFATE 3 ML SOLUTION IH SCH ×5 (08:01→23:39)
[2021-02-04] MEDS ORDERED: NON-FORMULARY MEDICATION 1 EACH (Glipizide 10 MG) PO SCH (09:00)
[2021-02-04] MEDS ORDERED: LISINOPRIL 20 MG TABLET PO SCH (09:00)
[2021-02-04] MEDS ORDERED: METFORMIN HCL 500 MG TABLET PO SCH (09:00)
[2021-02-04] MEDS ORDERED: NON-FORMULARY MEDICATION 1 EACH (Levothyroxine Sodium (Levothyroxine) 50 MCG) PO SCH (09:00)
[2021-02-04] MEDS ORDERED: NON-FORMULARY MEDICATION 1 EACH (Metformin HCl 1,000 MG) PO SCH (09:00)
[2021-02-04] MEDS ORDERED: GLIPIZIDE 5 MG TABLET PO SCH (09:00)
[2021-02-04] MEDS: D5W-1/2 NS/20MEQ KCL 1,000 ML IV SCH ×2 (09:20→18:29)
[2021-02-04] MEDS: FAMOTIDINE 20MG VIAL IV SCH ×2 (09:30→20:42)
[2021-02-04] MEDS: FENOFIBRATE NANOCRYSTALLIZED 145 MG TAB PO SCH (09:34)
[2021-02-04] MEDS: KCL 20 MEQ ERTAB PO SCH (09:34)
[2021-02-04] MEDS: ATORVASTATIN 20 MG TABLET PO SCH (09:34)
[2021-02-04] MEDS: ENOXAPARIN SODIUM 40 MG/0.4 ML SYRINGE SQ SCH (09:43)
[2021-02-04] MEDS: CITALOPRAM 20 MG TABLET PO SCH (09:44)
[2021-02-04] MEDS: LABETALOL 20MG VIAL IV PRN (17:49)
[2021-02-04 21:50] VITALS: BP 138/67
[2021-02-04] MEDS: KCL 20 MEQ ERTAB PO PRN (22:37)
[2021-02-05] MEDS: KCL 20 MEQ ERTAB PO PRN ×6 (00:15→22:23)
[2021-02-05 00:28] VITALS: BP 170/95
[2021-02-05] MEDS: LABETALOL 20MG VIAL IV PRN ×2 (00:43→06:08)
[2021-02-05] MEDS: D5W-1/2 NS/20MEQ KCL 1,000 ML IV SCH (03:02)
[2021-02-05 04:28] VITALS: BP 174/84
[2021-02-05 04:42] LABS: HEMATOCRIT 26.9 % (36-48); MEAN CORPUSCULAR HGB CONC 33.5 g/dL (32.0-36.0); MEAN CORPUSCULAR VOLUME 86.8 fL (79-99); RED BLOOD CELL COUNT(AUTO) 3.1 MIL/uL (4.00-5.50); WHITE BLOOD COUNT (AUTO) 7.2 K/uL (4.8-10.8)
[2021-02-05 04:58] LABS: ALBUMIN 1.6 g/dL (3.5-5.0); BILIRUBIN,TOTAL 0.1 mg/dL (0.2-1.0); CREATININE 1.4 mg/dL (0.5-1.5); MAGNESIUM 1.7 mg/dL (1.80-2.40); PHOSPHORUS 2.3 mg/dL (2.5-4.9); TOTAL PROTEIN, SERUM 4.5 g/dL (6.0-8.3)
[2021-02-05 05:00] LABS: POTASSIUM 2.8 mmol/L (3.5-5.1)
[2021-02-05] MEDS: LEVOTHYROXINE 50 MCG TABLET PO SCH (05:22)
[2021-02-05] MEDS: INSULIN GLARGINE 100 UNITS/ML 10 ML VIAL SQ SCH ×2 (06:09→20:59)
[2021-02-05] MEDS: INSULIN R PO SS2 SQ SCH ×4 (06:10→20:59)
[2021-02-05] MEDS: IPRATROPIUM/ALBUTEROL SULFATE 3 ML SOLUTION IH SCH ×4 (06:33→23:56)
[2021-02-05 08:00] VITALS: BP 141/83
[2021-02-05] MEDS: FAMOTIDINE 20MG VIAL IV SCH (09:10)
[2021-02-05] MEDS: CITALOPRAM 20 MG TABLET PO SCH (09:10)
[2021-02-05] MEDS: FENOFIBRATE NANOCRYSTALLIZED 145 MG TAB PO SCH (09:10)
[2021-02-05] MEDS: ENOXAPARIN SODIUM 40 MG/0.4 ML SYRINGE SQ SCH (09:10)
[2021-02-05] MEDS: LISINOPRIL 20 MG TABLET PO SCH ×2 (09:11→20:43)
[2021-02-05] MEDS: ATORVASTATIN 20 MG TABLET PO SCH (09:11)
[2021-02-05] MEDS: KCL 20 MEQ ERTAB PO SCH (09:11)
[2021-02-05] MEDS: MAGNESIUM 2GM PREMIX 50ML 50 ML IV PRN (09:16)
[2021-02-05 12:00] VITALS: BP 143/76
[2021-02-05] MEDS ORDERED: FUROSEMIDE 40MG VIAL IV SCH (12:00)
[2021-02-05 12:26] LABS: CHLORIDE,URINE RANDOM 75 mmol/L (110-250); POTASSIUM,URINE RANDOM 19 mmol/L (25-125); SODIUM,URINE RANDOM 52 mmol/l (40-220)
[2021-02-05] MEDS ORDERED: HEPARIN 5,000 UNIT VIAL SQ SCH (15:00)
[2021-02-05] MEDS ORDERED: AMILORIDE 5MG TAB PO SCH (15:30)
[2021-02-05 16:00] VITALS: BP 172/99
[2021-02-05 20:20] VITALS: BP 181/91
[2021-02-05] MEDS: QUETIAPINE FUMARATE 100 MG TAB PO SCH (20:37)
[2021-02-05] MEDS: HEPARIN 5,000 UNIT VIAL SQ SCH (20:48)
[2021-02-05] MEDS: LORAZEPAM 1 MG TABLET PO PRN (22:23)
[2021-02-06 00:23] VITALS: BP 150/97
[2021-02-06] MEDS: KCL 20 MEQ ERTAB PO PRN ×4 (00:23→06:48)
[2021-02-06 03:48] LABS: HEMATOCRIT 30.1 % (36-48); MEAN CORPUSCULAR HEMOGLOBIN 29.2 pg (27.0-33.0); MEAN CORPUSCULAR HGB CONC 33.6 g/dL (32.0-36.0); RED BLOOD CELL COUNT(AUTO) 3.46 MIL/uL (4.00-5.50); RED CELL DISTRIBUTION WIDTH 14.3 % (11.0-15.5); WHITE BLOOD COUNT (AUTO) 6.7 K/uL (4.8-10.8)
[2021-02-06 04:00] VITALS: BP 156/97
[2021-02-06 04:06] LABS: % IRON SATURATION 32.5 % (22-44); CREATININE 1.4 mg/dL (0.5-1.5); MAGNESIUM 2.1 mg/dL (1.80-2.40); PHOSPHORUS 3.7 mg/dL (2.5-4.9)
[2021-02-06 04:14] LABS: POTASSIUM 2.9 mmol/L (3.5-5.1)
[2021-02-06] MEDS: IPRATROPIUM/ALBUTEROL SULFATE 3 ML SOLUTION IH SCH ×4 (06:00→23:32)
[2021-02-06] MEDS: LEVOTHYROXINE 50 MCG TABLET PO SCH (06:00)
[2021-02-06] MEDS: INSULIN R PO SS2 SQ SCH ×4 (06:01→21:28)
[2021-02-06] MEDS: INSULIN GLARGINE 100 UNITS/ML 10 ML VIAL SQ SCH ×2 (06:01→21:28)
[2021-02-06 08:00] VITALS: BP 148/87
[2021-02-06] MEDS: CITALOPRAM 20 MG TABLET PO SCH (09:50)
[2021-02-06] MEDS: PANTOPRAZOLE 40 MG TAB DR PO SCH (09:50)
[2021-02-06] MEDS: FENOFIBRATE NANOCRYSTALLIZED 145 MG TAB PO SCH (09:51)
[2021-02-06] MEDS: KCL 20 MEQ ERTAB PO SCH (09:51)
[2021-02-06] MEDS: ATORVASTATIN 20 MG TABLET PO SCH (09:51)
[2021-02-06] MEDS: AMILORIDE 5MG TAB PO SCH (09:51)
[2021-02-06] MEDS: LISINOPRIL 20 MG TABLET PO SCH ×2 (09:51→21:27)
[2021-02-06] MEDS: HEPARIN 5,000 UNIT VIAL SQ SCH ×2 (10:03→21:29)
[2021-02-06 11:36] VITALS: BP 156/100
[2021-02-06 16:00] VITALS: BP 162/92
[2021-02-06] MEDS: LORAZEPAM 1 MG TABLET PO PRN (16:55)
[2021-02-06] MEDS: LABETALOL 20MG VIAL IV PRN (16:57)
[2021-02-06] MEDS: QUETIAPINE FUMARATE 100 MG TAB PO SCH (21:26)
[2021-02-06 23:02] VITALS: BP 161/91
[2021-02-07 02:12] VITALS: BP 131/83
[2021-02-07 04:35] LABS: ALBUMIN 1.7 g/dL (3.5-5.0); BILIRUBIN,TOTAL 0.1 mg/dL (0.2-1.0); CREATININE 1.5 mg/dL (0.5-1.5); MAGNESIUM 1.9 mg/dL (1.80-2.40); PHOSPHORUS 3.9 mg/dL (2.5-4.9); POTASSIUM 4.2 mmol/L (3.5-5.1)
[2021-02-07 05:30] VITALS: BP 120/70
[2021-02-07] MEDS: IPRATROPIUM/ALBUTEROL SULFATE 3 ML SOLUTION IH SCH ×3 (06:32→18:58)
[2021-02-07] MEDS: INSULIN R PO SS2 SQ SCH ×4 (06:34→20:21)
[2021-02-07] MEDS: LEVOTHYROXINE 50 MCG TABLET PO SCH (06:38)
[2021-02-07] MEDS: INSULIN GLARGINE 100 UNITS/ML 10 ML VIAL SQ SCH ×2 (06:39→20:21)
[2021-02-07 08:41] VITALS: BP 150/83
[2021-02-07] MEDS ORDERED: FLUOXETINE HCL 20 MG CAPSULE PO SCH (09:00)
[2021-02-07] MEDS: KCL 20 MEQ ERTAB PO SCH (09:00)
[2021-02-07] MEDS: AMILORIDE 5MG TAB PO SCH (09:30)
[2021-02-07] MEDS: FENOFIBRATE NANOCRYSTALLIZED 145 MG TAB PO SCH (11:14)
[2021-02-07] MEDS: PANTOPRAZOLE 40 MG TAB DR PO SCH (11:14)
[2021-02-07] MEDS: ATORVASTATIN 20 MG TABLET PO SCH (11:15)
[2021-02-07] MEDS: LISINOPRIL 20 MG TABLET PO SCH ×2 (11:15→20:16)
[2021-02-07] MEDS: HEPARIN 5,000 UNIT VIAL SQ SCH ×2 (11:23→20:20)
[2021-02-07 13:38] VITALS: BP 141/83
[2021-02-07] MEDS: FUROSEMIDE 20 MG TABLET PO SCH (16:05)
[2021-02-07 16:33] VITALS: BP 143/79
[2021-02-07] MEDS: TRAZODONE HCL 50 MG TAB PO SCH (20:15)
[2021-02-07] MEDS: QUETIAPINE FUMARATE 100 MG TAB PO SCH (20:15)
[2021-02-07] MEDS: HYDROXYZINE 25 MG TABLET PO SCH (20:15)
[2021-02-07 20:20] VITALS: BP 165/86
[2021-02-08 00:15] VITALS: BP 142/72
[2021-02-08 04:26] LABS: BASOPHILS % (AUTO) 0.8 % (0.0-5.0); EOSINOPHILS % (AUTO) 3.7 % (0.0-8.0); HEMATOCRIT 29.6 % (36-48); LYMPHOCYTES % (AUTO) 31.2 % (21.0-51.0); MEAN CORPUSCULAR HEMOGLOBIN 29.3 pg (27.0-33.0); MEAN CORPUSCULAR HGB CONC 32.1 g/dL (32.0-36.0); MEAN CORPUSCULAR VOLUME 91.4 fL (79-99); MONOCYTES % (AUTO) 9.2 % (3.0-13.0); NEUTROPHILS % (AUTO) 54.3 % (40.0-77.0); PLATELET COUNT (AUTO) 256 K/uL (130-400); RED BLOOD CELL COUNT(AUTO) 3.24 MIL/uL (4.00-5.50); RED CELL DISTRIBUTION WIDTH 14.2 % (11.0-15.5)
[2021-02-08 04:33] VITALS: BP 144/67
[2021-02-08 04:39] LABS: ALBUMIN 1.8 g/dL (3.5-5.0); BILIRUBIN,TOTAL 0.1 mg/dL (0.2-1.0); CREATININE 1.8 mg/dL (0.5-1.5); MAGNESIUM 1.7 mg/dL (1.80-2.40); POTASSIUM 3.9 mmol/L (3.5-5.1); TOTAL PROTEIN, SERUM 4.9 g/dL (6.0-8.3)
[2021-02-08] MEDS: INSULIN R PO SS2 SQ SCH ×4 (06:17→21:03)
[2021-02-08] MEDS: LEVOTHYROXINE 50 MCG TABLET PO SCH (06:17)
[2021-02-08] MEDS: INSULIN GLARGINE 100 UNITS/ML 10 ML VIAL SQ SCH ×2 (06:18→21:04)
[2021-02-08] MEDS: IPRATROPIUM/ALBUTEROL SULFATE 3 ML SOLUTION IH SCH ×4 (06:34→19:02)
[2021-02-08 08:08] VITALS: BP 157/85
[2021-02-08] MEDS: PANTOPRAZOLE 40 MG TAB DR PO SCH (08:30)
[2021-02-08] MEDS: ATORVASTATIN 20 MG TABLET PO SCH (08:30)
[2021-02-08] MEDS: LISINOPRIL 20 MG TABLET PO SCH ×2 (08:31→20:55)
[2021-02-08] MEDS: FENOFIBRATE NANOCRYSTALLIZED 145 MG TAB PO SCH (08:31)
[2021-02-08] MEDS: FUROSEMIDE 20 MG TABLET PO SCH ×2 (08:31→16:40)
[2021-02-08] MEDS: HEPARIN 5,000 UNIT VIAL SQ SCH ×2 (08:35→21:02)
[2021-02-08 12:08] VITALS: BP 141/89
[2021-02-08] MEDS: TRAZODONE HCL 50 MG TAB PO SCH (20:55)
[2021-02-08] MEDS: HYDROXYZINE 25 MG TABLET PO SCH (20:55)
[2021-02-08] MEDS: QUETIAPINE FUMARATE 100 MG TAB PO SCH (20:55)
[2021-02-08 21:05] VITALS: BP 184/99
[2021-02-09 00:59] VITALS: BP 164/96
[2021-02-09 03:39] LABS: HEMATOCRIT 31.7 % (36-48); MEAN CORPUSCULAR HEMOGLOBIN 29.6 pg (27.0-33.0); MEAN CORPUSCULAR HGB CONC 32.8 g/dL (32.0-36.0); MEAN CORPUSCULAR VOLUME 90.3 fL (79-99); RED BLOOD CELL COUNT(AUTO) 3.51 MIL/uL (4.00-5.50); RED CELL DISTRIBUTION WIDTH 13.8 % (11.0-15.5)
[2021-02-09 03:48] LABS: CREATININE 1.9 mg/dL (0.5-1.5); POTASSIUM 3.5 mmol/L (3.5-5.1)
[2021-02-09 05:00] VITALS: BP 151/77
[2021-02-09] MEDS: IPRATROPIUM/ALBUTEROL SULFATE 3 ML SOLUTION IH SCH ×5 (06:00→23:36)
[2021-02-09] MEDS: LEVOTHYROXINE 50 MCG TABLET PO SCH (06:23)
[2021-02-09] MEDS: INSULIN GLARGINE 100 UNITS/ML 10 ML VIAL SQ SCH ×2 (06:24→21:39)
[2021-02-09] MEDS: INSULIN R PO SS2 SQ SCH ×4 (06:25→21:40)
[2021-02-09 08:00] VITALS: BP 151/88
[2021-02-09] MEDS: ATORVASTATIN 20 MG TABLET PO SCH (09:41)
[2021-02-09] MEDS: FENOFIBRATE NANOCRYSTALLIZED 145 MG TAB PO SCH (09:41)
[2021-02-09] MEDS: PANTOPRAZOLE 40 MG TAB DR PO SCH (09:41)
[2021-02-09] MEDS: FUROSEMIDE 20 MG TABLET PO SCH ×2 (09:42→16:56)
[2021-02-09] MEDS: LISINOPRIL 20 MG TABLET PO SCH ×2 (09:43→21:31)
[2021-02-09] MEDS: HEPARIN 5,000 UNIT VIAL SQ SCH ×2 (09:45→21:41)
[2021-02-09 12:00] VITALS: BP 164/110
[2021-02-09 16:00] VITALS: BP 159/93
[2021-02-09 16:52] LABS: APPEARANCE,URINE Clear (CLEAR); BILIRUBIN,URINE Negative (NEGATIVE); COLOR,URINE Yellow (YELLOW); GLUCOSE, URINE (UA) 250 mg/dL (NEGATIVE); KETONES,URINE Negative (NEGATIVE); LEUKOCYTE ESTERASE ,URINE Negative (NEGATIVE); NITRATE,URINE Negative (NEGATIVE); OCCULT BLOOD,URINE Negative (NEGATIVE); PROTEIN,URINE POS 2+ mg/dL (NEGATIVE); UROBILINOGEN,URINE 0.2 mg/dL (0.2-1.0)
[2021-02-09 17:25] LABS: BACTERIA,URINE Rare /HPF (None Seen); RBC,URINE 0-1 /HPF (0-1); WBC,URINE 0-1 /HPF (0-1)
[2021-02-09 17:26] LABS: SQUAMOUS EPITHELIAL CELL,UR Rare /HPF (0-2)
[2021-02-09 20:05] VITALS: BP 184/97
[2021-02-09] MEDS: HYDROXYZINE 25 MG TABLET PO SCH (21:31)
[2021-02-09] MEDS: QUETIAPINE FUMARATE 100 MG TAB PO SCH (21:31)
[2021-02-09] MEDS: TRAZODONE HCL 50 MG TAB PO SCH (21:31)
[2021-02-10 00:41] VITALS: BP 154/83
[2021-02-10 03:52] LABS: HEMATOCRIT 32.3 % (36-48); MEAN CORPUSCULAR HEMOGLOBIN 29.7 pg (27.0-33.0); MEAN CORPUSCULAR HGB CONC 33.1 g/dL (32.0-36.0); MEAN CORPUSCULAR VOLUME 89.7 fL (79-99); RED BLOOD CELL COUNT(AUTO) 3.6 MIL/uL (4.00-5.50); RED CELL DISTRIBUTION WIDTH 13.6 % (11.0-15.5); WHITE BLOOD COUNT (AUTO) 8.8 K/uL (4.8-10.8)
[2021-02-10 04:10] LABS: CREATININE 2.1 mg/dL (0.5-1.5); MAGNESIUM 1.6 mg/dL (1.80-2.40); PHOSPHORUS 4.7 mg/dL (2.5-4.9); POTASSIUM 3.4 mmol/L (3.5-5.1)
[2021-02-10 04:29] LABS: % IRON SATURATION 29.2 % (22-44)
[2021-02-10 04:45] VITALS: BP 118/74
[2021-02-10] MEDS: LEVOTHYROXINE 50 MCG TABLET PO SCH (06:58)
[2021-02-10] MEDS: IPRATROPIUM/ALBUTEROL SULFATE 3 ML SOLUTION IH SCH ×4 (07:11→23:41)
[2021-02-10] MEDS: INSULIN R PO SS2 SQ SCH ×4 (07:30→22:16)
[2021-02-10] MEDS: ATORVASTATIN 20 MG TABLET PO SCH (08:47)
[2021-02-10] MEDS: PANTOPRAZOLE 40 MG TAB DR PO SCH (08:47)
[2021-02-10] MEDS: LISINOPRIL 20 MG TABLET PO SCH (08:47)
[2021-02-10] MEDS: FUROSEMIDE 20 MG TABLET PO SCH (08:47)
[2021-02-10] MEDS: FENOFIBRATE NANOCRYSTALLIZED 145 MG TAB PO SCH (08:48)
[2021-02-10] MEDS: HEPARIN 5,000 UNIT VIAL SQ SCH ×2 (08:52→22:15)
[2021-02-10] MEDS: INSULIN GLARGINE 100 UNITS/ML 10 ML VIAL SQ SCH ×2 (08:52→22:17)
[2021-02-10 08:59] VITALS: BP 154/87
[2021-02-10] MEDS ORDERED: ERGOCALCIFEROL (VITAMIN D2) 50,000 UNIT CAPSULE PO SCH (09:00)
[2021-02-10 12:39] VITALS: BP 154/93
[2021-02-10] MEDS: 0.9%NACL 1000ML 1,000 ML IV SCH (16:06)
[2021-02-10 16:59] VITALS: BP 164/94
[2021-02-10] MEDS: HYDROXYZINE 25 MG TABLET PO SCH (22:10)
[2021-02-10] MEDS: QUETIAPINE FUMARATE 100 MG TAB PO SCH (22:10)
[2021-02-10] MEDS: TRAZODONE HCL 50 MG TAB PO SCH (22:11)
[2021-02-10 23:30] VITALS: BP 195/103
[2021-02-11] MEDS: LABETALOL 20MG VIAL IV PRN ×3 (00:18→01:55)
[2021-02-11] MEDS: LORAZEPAM 1 MG TABLET PO PRN (00:18)
[2021-02-11] MEDS: 0.9%NACL 1000ML 1,000 ML IV SCH ×2 (02:40→21:19)
[2021-02-11 04:33] LABS: HEMATOCRIT 31.5 % (36-48); MEAN CORPUSCULAR HEMOGLOBIN 29.6 pg (27.0-33.0); MEAN CORPUSCULAR HGB CONC 32.1 g/dL (32.0-36.0); MEAN CORPUSCULAR VOLUME 92.4 fL (79-99); PLATELET COUNT (AUTO) 257 K/uL (130-400); RED BLOOD CELL COUNT(AUTO) 3.41 MIL/uL (4.00-5.50); RED CELL DISTRIBUTION WIDTH 13.5 % (11.0-15.5); WHITE BLOOD COUNT (AUTO) 7.7 K/uL (4.8-10.8)
[2021-02-11 04:39] LABS: CREATININE 2.2 mg/dL (0.5-1.5); POTASSIUM 3.8 mmol/L (3.5-5.1)
[2021-02-11 04:44] VITALS: BP 149/72
[2021-02-11 05:33] LABS: BAND NEUTROPHILS % (MANUAL) 4 % (0-2); BASOPHILS % (MANUAL) 2 % (0-2); EOSINOPHILS % (MANUAL) 3 % (1-6); LYMPHOCYTES % (MANUAL) 18 % (22-44); METAMYELOCYTES % 1 % (0-0); MONOCYTES % (MANUAL) 6 % (2-9); REACTIVE LYMPHOCYTES 2 % (0-0); SEGMENTED NEUTROPHILS % 64 % (40-70)
[2021-02-11 05:34] LABS: MAN.DIFF COMMENT-IMPRESSION MANUAL DIFFERENTIAL; PLATELET MORPHOLOGY COMMENT ADEQUATE
[2021-02-11] MEDS: LEVOTHYROXINE 50 MCG TABLET PO SCH (06:14)
[2021-02-11] MEDS: IPRATROPIUM/ALBUTEROL SULFATE 3 ML SOLUTION IH SCH ×4 (06:36→23:23)
[2021-02-11] MEDS: INSULIN R PO SS2 SQ SCH ×4 (06:37→21:22)
[2021-02-11] MEDS: INSULIN GLARGINE 100 UNITS/ML 10 ML VIAL SQ SCH ×2 (06:39→21:22)
[2021-02-11 07:58] VITALS: BP 134/74
[2021-02-11] MEDS: ATORVASTATIN 20 MG TABLET PO SCH (08:58)
[2021-02-11] MEDS: PANTOPRAZOLE 40 MG TAB DR PO SCH (08:58)
[2021-02-11] MEDS: FENOFIBRATE NANOCRYSTALLIZED 145 MG TAB PO SCH (08:58)
[2021-02-11] MEDS: HEPARIN 5,000 UNIT VIAL SQ SCH ×2 (08:59→21:21)
[2021-02-11 12:00] VITALS: BP 135/81
[2021-02-11 16:00] VITALS: BP 127/66
[2021-02-11 20:55] VITALS: BP 146/88
[2021-02-11] MEDS: TRAZODONE HCL 50 MG TAB PO SCH (21:19)
[2021-02-11] MEDS: QUETIAPINE FUMARATE 100 MG TAB PO SCH (21:19)
[2021-02-11] MEDS: HYDROXYZINE 25 MG TABLET PO SCH (21:19)
[2021-02-12] VITALS (7 sets, daily range): BP systolic 137–147; BP diastolic 38–80
[2021-02-12 04:18] LABS: HEMATOCRIT 28.6 % (36-48); MEAN CORPUSCULAR HEMOGLOBIN 29.7 pg (27.0-33.0); MEAN CORPUSCULAR HGB CONC 32.9 g/dL (32.0-36.0); MEAN CORPUSCULAR VOLUME 90.5 fL (79-99); RED BLOOD CELL COUNT(AUTO) 3.16 MIL/uL (4.00-5.50); RED CELL DISTRIBUTION WIDTH 13.3 % (11.0-15.5); WHITE BLOOD COUNT (AUTO) 7.7 K/uL (4.8-10.8)
[2021-02-12 04:29] LABS: POTASSIUM 3.6 mmol/L (3.5-5.1)
[2021-02-12] MEDS: 0.9%NACL 1000ML 1,000 ML IV SCH (06:00)
[2021-02-12] MEDS: LEVOTHYROXINE 50 MCG TABLET PO SCH (06:00)
[2021-02-12] MEDS: INSULIN GLARGINE 100 UNITS/ML 10 ML VIAL SQ SCH ×2 (06:02→21:44)
[2021-02-12] MEDS: INSULIN R PO SS2 SQ SCH ×4 (06:02→21:45)
[2021-02-12] MEDS: IPRATROPIUM/ALBUTEROL SULFATE 3 ML SOLUTION IH SCH ×3 (07:01→18:56)
[2021-02-12] MEDS: ATORVASTATIN 20 MG TABLET PO SCH (08:53)
[2021-02-12] MEDS: METOPROLOL TARTRATE 25 MG TAB PO SCH ×2 (08:53→21:42)
[2021-02-12] MEDS: PANTOPRAZOLE 40 MG TAB DR PO SCH (08:53)
[2021-02-12] MEDS: FENOFIBRATE NANOCRYSTALLIZED 145 MG TAB PO SCH (08:53)
[2021-02-12] MEDS: HEPARIN 5,000 UNIT VIAL SQ SCH ×2 (08:57→21:46)
[2021-02-12] MEDS ORDERED: PANT40TA54 PO (13:55)
[2021-02-12] MEDS ORDERED: ONDA4TAB4 PO (13:57)
[2021-02-12] MEDS ORDERED: QUET100T PO (14:01)
[2021-02-12] MEDS: CITALOPRAM 20 MG TABLET PO SCH (17:35)
[2021-02-12] MEDS: HYDROXYZINE 25 MG TABLET PO SCH (21:42)
[2021-02-12] MEDS: TRAZODONE HCL 50 MG TAB PO SCH (21:42)
[2021-02-12] MEDS: QUETIAPINE FUMARATE 100 MG TAB PO SCH (21:42)
[2021-02-13 03:08] VITALS: BP 113/65
[2021-02-13 04:51] LABS: CREATININE 1.9 mg/dL (0.5-1.5); POTASSIUM 3.6 mmol/L (3.5-5.1)
[2021-02-13] MEDS: LEVOTHYROXINE 50 MCG TABLET PO SCH (05:44)
[2021-02-13] MEDS: INSULIN R PO SS2 SQ SCH ×4 (05:45→21:00)
[2021-02-13] MEDS: INSULIN GLARGINE 100 UNITS/ML 10 ML VIAL SQ SCH ×2 (05:46→21:05)
[2021-02-13] MEDS: IPRATROPIUM/ALBUTEROL SULFATE 3 ML SOLUTION IH SCH ×4 (06:00→18:40)
[2021-02-13 08:00] VITALS: BP 121/73
[2021-02-13] MEDS: METOPROLOL TARTRATE 25 MG TAB PO SCH ×2 (09:18→21:03)
[2021-02-13] MEDS: CITALOPRAM 20 MG TABLET PO SCH (09:18)
[2021-02-13] MEDS: PANTOPRAZOLE 40 MG TAB DR PO SCH (09:18)
[2021-02-13] MEDS: FENOFIBRATE NANOCRYSTALLIZED 145 MG TAB PO SCH (09:18)
[2021-02-13] MEDS: ATORVASTATIN 20 MG TABLET PO SCH (09:18)
[2021-02-13] MEDS: HEPARIN 5,000 UNIT VIAL SQ SCH ×2 (09:19→19:36)
[2021-02-13] MEDS: BISACODYL 5 MG TABLET.DR PO SCH (11:32)
[2021-02-13] MEDS: ONDANSETRON 4MG INJ IVP PRN ×2 (11:32→19:55)
[2021-02-13 11:43] VITALS: BP 130/78
[2021-02-13 16:00] VITALS: BP 136/76
[2021-02-13] MEDS: QUETIAPINE FUMARATE 100 MG TAB PO SCH (19:34)
[2021-02-13] MEDS: HYDROXYZINE 25 MG TABLET PO SCH (19:34)
[2021-02-13] MEDS: TRAZODONE HCL 50 MG TAB PO SCH (19:35)
[2021-02-13 20:00] VITALS: BP 165/99
[2021-02-13] MEDS: LORAZEPAM 1 MG TABLET PO PRN (21:03)
[2021-02-14] VITALS: BP 135/76
[2021-02-14 04:00] VITALS: BP 137/75
[2021-02-14 05:20] LABS: BASOPHILS % (AUTO) 0.7 % (0.0-5.0); EOSINOPHILS % (AUTO) 3.8 % (0.0-8.0); HEMATOCRIT 27.4 % (36-48); LYMPHOCYTES % (AUTO) 28.1 % (21.0-51.0); MEAN CORPUSCULAR HEMOGLOBIN 29.6 pg (27.0-33.0); MEAN CORPUSCULAR HGB CONC 32.5 g/dL (32.0-36.0); MONOCYTES % (AUTO) 9.9 % (3.0-13.0); NEUTROPHILS % (AUTO) 56.7 % (40.0-77.0); PLATELET COUNT (AUTO) 238 K/uL (130-400); RED BLOOD CELL COUNT(AUTO) 3.01 MIL/uL (4.00-5.50); RED CELL DISTRIBUTION WIDTH 13.4 % (11.0-15.5); WHITE BLOOD COUNT (AUTO) 7.6 K/uL (4.8-10.8)
[2021-02-14 05:41] LABS: POTASSIUM 3.5 mmol/L (3.5-5.1)
[2021-02-14] MEDS: IPRATROPIUM/ALBUTEROL SULFATE 3 ML SOLUTION IH SCH ×5 (06:00→23:33)
[2021-02-14] MEDS: LEVOTHYROXINE 50 MCG TABLET PO SCH (06:04)
[2021-02-14] MEDS: INSULIN GLARGINE 100 UNITS/ML 10 ML VIAL SQ SCH ×2 (06:08→20:45)
[2021-02-14] MEDS: INSULIN R PO SS2 SQ SCH ×4 (06:10→20:46)
[2021-02-14 08:00] VITALS: BP 141/71
[2021-02-14] MEDS: ATORVASTATIN 20 MG TABLET PO SCH (08:58)
[2021-02-14] MEDS: CITALOPRAM 20 MG TABLET PO SCH (08:58)
[2021-02-14] MEDS: FENOFIBRATE NANOCRYSTALLIZED 145 MG TAB PO SCH (08:58)
[2021-02-14] MEDS: PANTOPRAZOLE 40 MG TAB DR PO SCH (08:58)
[2021-02-14] MEDS: METOPROLOL TARTRATE 25 MG TAB PO SCH ×2 (08:58→20:46)
[2021-02-14] MEDS: BISACODYL 5 MG TABLET.DR PO SCH (08:59)
[2021-02-14] MEDS: HEPARIN 5,000 UNIT VIAL SQ SCH ×2 (09:00→20:45)
[2021-02-14 12:00] VITALS: BP 140/93
[2021-02-14 16:00] VITALS: BP 142/88
[2021-02-14 20:00] VITALS: BP 178/90
[2021-02-14] MEDS: QUETIAPINE FUMARATE 100 MG TAB PO SCH (20:47)
[2021-02-14] MEDS: TRAZODONE HCL 50 MG TAB PO SCH (20:47)
[2021-02-14] MEDS: HYDROXYZINE 25 MG TABLET PO SCH (20:47)
[2021-02-15] VITALS: BP 145/78
[2021-02-15 04:00] VITALS: BP 122/65
[2021-02-15] MEDS: LEVOTHYROXINE 50 MCG TABLET PO SCH (05:52)
[2021-02-15] MEDS: INSULIN R PO SS2 SQ SCH ×3 (05:59→16:25)
[2021-02-15] MEDS: IPRATROPIUM/ALBUTEROL SULFATE 3 ML SOLUTION IH SCH ×2 (06:00→11:00)
[2021-02-15] MEDS: INSULIN GLARGINE 100 UNITS/ML 10 ML VIAL SQ SCH (06:03)
[2021-02-15 07:27] VITALS: BP 153/83
[2021-02-15] MEDS: METOPROLOL TARTRATE 25 MG TAB PO SCH (08:48)
[2021-02-15] MEDS: CITALOPRAM 20 MG TABLET PO SCH (08:48)
[2021-02-15] MEDS: PANTOPRAZOLE 40 MG TAB DR PO SCH (08:48)
[2021-02-15] MEDS: BISACODYL 5 MG TABLET.DR PO SCH (08:48)
[2021-02-15] MEDS: FENOFIBRATE NANOCRYSTALLIZED 145 MG TAB PO SCH (08:48)
[2021-02-15] MEDS: ATORVASTATIN 20 MG TABLET PO SCH (08:48)
[2021-02-15] MEDS: HEPARIN 5,000 UNIT VIAL SQ SCH (08:49)
[2021-02-15 11:24] VITALS: BP 150/75
[2021-02-15 15:54] VITALS: BP 157/90
== END 2021-02-15 17:30 | disposition home or self-care (01) | DRG 637 ==
LOC: EDH 22:16 → OBSVTOIN 02-03 03:20 → INTOOBSV 02-03 03:20 → EDHIP 02-03 03:20 → 4DH 02-04 21:47
PROVIDERS: ADMIT Internal Medicine Pulmonary Disease; ATTEND Internal Medicine Pulmonary Disease
DX: E11.00 Type 2 diabetes mellitus with hyperosmolarity without nonketotic hyperglycemic-hyperosmolar coma (NKHHC) (principal); E43 Unspecified severe protein-calorie malnutrition; N17.9 Acute kidney failure, unspecified; J81.1 Chronic pulmonary edema; E11.65 Type 2 diabetes mellitus with hyperglycemia; E88.89 Other specified metabolic disorders; E86.0 Dehydration; E87.6 Hypokalemia; F32.A Depression, unspecified; D64.9 Anemia, unspecified; E87.8 Other disorders of electrolyte and fluid balance, not elsewhere classified; E07.9 Disorder of thyroid, unspecified; E11.51 Type 2 diabetes mellitus with diabetic peripheral angiopathy without gangrene; N18.9 Chronic kidney disease, unspecified; E11.22 Type 2 diabetes mellitus with diabetic chronic kidney disease; I12.9 Hypertensive chronic kidney disease with stage 1 through stage 4 chronic kidney disease, or unspecified chronic kidney disease; E66.9 Obesity, unspecified; E83.39 Other disorders of phosphorus metabolism; E83.42 Hypomagnesemia; F41.9 Anxiety disorder, unspecified; I25.10 Atherosclerotic heart disease of native coronary artery without angina pectoris; Z68.33 Body mass index [BMI] 33.0-33.9, adult; Z88.2 Allergy status to sulfonamides; Z88.8 Allergy status to other drugs, medicaments and biological substances; Z89.512 Acquired absence of left leg below knee; Z79.4 Long term (current) use of insulin; Z79.84 Long term (current) use of oral hypoglycemic drugs; Z79.890 Hormone replacement therapy; Z79.899 Other long term (current) drug therapy; Z91.19 Patient's noncompliance with other medical treatment and regimen
CPT/HCPCS: 36415; 36600; 70547; 70551; 71045; 76770; 80048; 80051; 80053; 81001; 82010; 82550; 82728; 82803; 82948; 83036; 83540; 83550; 83605; 83690; 83735; 83874; 84100; 84132; 84145; 84484; 85025; 85027; 85378; 87040; 87088; 93005; 93880; 94640; 97039; G0378; J1644; J1650; J1815; J1940; J2405; J2765; J3475; J3480; J3490; J7030

== ENCOUNTER 2021-08-03 14:56 | Inpatient (IN) | payer OTHER, MEDICARE ==
[~2021-08-03] VITALS: Ht 157.5 cm; Wt 91.4 kg
[~2021-08-03 14:56] MED LIST changes: -CEPH500C2 PO; -CITA-107 PO; +DOXY100T2 PO; +DULO20CA18 PO; +FURO20TA6 PO; -GABA300C PO; -LOPE1TAB PO; +PRED20B PO; -PROM25TA7 PO
[2021-08-03] MEDS ORDERED: ACETAMINOPHEN WITH CODEINE 1 TAB TAB PO ONE (15:30)
[2021-08-03] MEDS ORDERED: DEXTROSE 50%-WATER 50 ML DISP.SYRIN IV ONE (15:30)
[2021-08-03 16:30] LABS: BASOPHILS % (AUTO) 0.5 % (0.0-5.0); EOSINOPHILS % (AUTO) 0.7 % (0.0-8.0); HEMATOCRIT 26.8 % (36-48); LYMPHOCYTES % (AUTO) 9.9 % (21.0-51.0); MEAN CORPUSCULAR HEMOGLOBIN 29.3 pg (27.0-33.0); MEAN CORPUSCULAR VOLUME 94.7 fL (79-99); MONOCYTES % (AUTO) 8.6 % (3.0-13.0); NEUTROPHILS % (AUTO) 79.6 % (40.0-77.0); PLATELET COUNT (AUTO) 244 K/uL (130-400); RED BLOOD CELL COUNT(AUTO) 2.83 MIL/uL (4.00-5.50); RED CELL DISTRIBUTION WIDTH 13.8 % (11.0-15.5); WHITE BLOOD COUNT (AUTO) 9.2 K/uL (4.8-10.8)
[2021-08-03 16:38] LABS: CREATININE 2.3 mg/dL (0.5-1.5); POTASSIUM 4.9 mmol/L (3.5-5.1)
[2021-08-03] MEDS ORDERED: CEFTRIAXONE 1G VIAL IVP ONE (17:00)
[2021-08-03] MEDS ORDERED: IPRATROPIUM/ALBUTEROL SULFATE 3 ML SOLUTION IH ONE (17:00)
[2021-08-03] MEDS ORDERED: AZITHROMYCIN 250 MG TABLET PO ONE (17:00)
[2021-08-03 17:02] LABS: ALBUMIN 2.4 g/dL (3.5-5.0); BILIRUBIN,TOTAL 0.2 mg/dL (0.2-1.0); TOTAL PROTEIN, SERUM 6.2 g/dL (6.0-8.3)
[2021-08-03] MEDS ORDERED: ASPIRIN 325MG TAB ONE (17:13)
[2021-08-03] MEDS ORDERED: NITROGLYCERIN 1GM OINT 1 INCH/1GM TD ONE ×2 (17:13→17:30)
[2021-08-03] MEDS ORDERED: 0.9%NACL 100ML 100 ML ONE (17:23)
[2021-08-03] MEDS ORDERED: ASPIRIN 325MG TAB PO ONE (17:30)
[2021-08-03] MEDS ORDERED: MAG/ALUM/SIMETH 30 ML UDCUP PO PRN (18:00)
[2021-08-03] MEDS: IPRATROPIUM/ALBUTEROL SULFATE 3 ML SOLUTION IH SCH ×2 (18:00→23:35)
[2021-08-03] MEDS ORDERED: LACTULOSE 20 GM/30 ML UDCUP PO PRN (18:00)
[2021-08-03] MEDS ORDERED: ACETAMINOPHEN 325 MG TAB PO PRN (18:00)
[2021-08-03] MEDS ORDERED: GUAIFENESIN-DM 200/20 MG 10 ML PO PRN (18:00)
[2021-08-03] MEDS ORDERED: ZOLPIDEM TARTRATE 5 MG TAB PO PRN (18:00)
[2021-08-03] MEDS ORDERED: NITROGLYCERIN 0.4 MG SL TAB SL PRN (18:00)
[2021-08-03 18:04] LABS: APPEARANCE,URINE Clear (CLEAR); BILIRUBIN,URINE Negative (NEGATIVE); COLOR,URINE Yellow (YELLOW); GLUCOSE, URINE (UA) Negative (NEGATIVE); KETONES,URINE Negative (NEGATIVE); LEUKOCYTE ESTERASE ,URINE Trace (NEGATIVE); NITRATE,URINE Negative (NEGATIVE); OCCULT BLOOD,URINE Negative (NEGATIVE); PH,URINE 6.5 (5.0-8.0); PROTEIN,URINE >=1000 mg/dL (NEGATIVE); UROBILINOGEN,URINE 0.2 mg/dL (0.2-1.0)
[2021-08-03 18:16] LABS: BACTERIA,URINE Rare /HPF (None Seen); RBC,URINE 0-1 /HPF (0-1); SQUAMOUS EPITHELIAL CELL,UR Rare /HPF (0-2); WBC,URINE 0-1 /HPF (0-1)
[2021-08-03 18:17] LABS: HYALINE CASTS, URINE 0-1 /LPF (0-1 /LPF)
[2021-08-03] MEDS ORDERED: DEXTROSE 10%-WATER 1,000 ML IV ONE (20:43)
[2021-08-03] MEDS: SODIUM CL 4MEQ/ML 30ML 154 MEQ in DEXTROSE 10%-WATER 961.5 ML IV SCH (20:53)
[2021-08-03 20:54] LABS: AMPHET/METH SCREEN,URINE NEGATIVE (NEGATIVE); BARBITURATE SCREEN, URINE NEGATIVE (NEGATIVE); BENZODIAZEPINES SCREEN,URINE NEGATIVE (NEGATIVE); CANNABINOID SCREEN,URINE NEGATIVE (NEGATIVE); COCAINE SCREEN,URINE NEGATIVE (NEGATIVE); OPIATE SCREEN,URINE NEGATIVE (NEGATIVE); PHENCYCLIDINE SCREEN,URINE NEGATIVE (NEGATIVE)
[2021-08-03] MEDS ORDERED: LEVOFLOXACIN 750 MG/D5W 150 ML 150 ML IV SCH (21:30)
[2021-08-03] MEDS ORDERED: ATORVASTATIN 40 MG TABLET PO SCH (21:45)
[2021-08-03] MEDS ORDERED: GLUCAGON 1MG KIT 1 MG ML IM PRN (22:00)
[2021-08-03] MEDS ORDERED: DEXTROSE 50%-WATER 50 ML DISP.SYRIN IV PRN (22:00)
[2021-08-03] MEDS: BENZONATATE 100 MG CAPSULE PO SCH (23:05)
[2021-08-03] MEDS: PANTOPRAZOLE 40 MG/VIAL IVP SCH (23:05)
[2021-08-03] MEDS: SOLU-MEDROL 40MG VIAL IVP SCH (23:05)
[2021-08-03] MEDS: ENOXAPARIN SODIUM 40 MG/0.4 ML SYRINGE SQ SCH (23:06)
[2021-08-04] MEDS: ONDANSETRON 4MG INJ IV PRN (03:03)
[2021-08-04 04:00] VITALS: BP 117/91
[2021-08-04 04:48] LABS: BASOPHILS % (AUTO) 0.5 % (0.0-5.0); EOSINOPHILS % (AUTO) 0.2 % (0.0-8.0); HEMATOCRIT 24.5 % (36-48); LYMPHOCYTES % (AUTO) 7.7 % (21.0-51.0); MEAN CORPUSCULAR HEMOGLOBIN 28.4 pg (27.0-33.0); MEAN CORPUSCULAR VOLUME 91.4 fL (79-99); MONOCYTES % (AUTO) 4.5 % (3.0-13.0); NEUTROPHILS % (AUTO) 86.3 % (40.0-77.0); PLATELET COUNT (AUTO) 204 K/uL (130-400); RED BLOOD CELL COUNT(AUTO) 2.68 MIL/uL (4.00-5.50); RED CELL DISTRIBUTION WIDTH 13.4 % (11.0-15.5); WHITE BLOOD COUNT (AUTO) 6.2 K/uL (4.8-10.8)
[2021-08-04] MEDS ORDERED: GABA-529 PO (04:50)
[2021-08-04] MEDS ORDERED: CEPH500C2 PO (04:50)
[2021-08-04] MEDS ORDERED: PROM25TA7 PO (04:50)
[2021-08-04] MEDS ORDERED: HYDR25TA PO (04:50)
[2021-08-04] MEDS ORDERED: METO-408 PO (04:50)
[2021-08-04 05:07] LABS: HEMOGLOBIN A1C 8.7 % (4.0-6.0)
[2021-08-04] MEDS: SOLU-MEDROL 40MG VIAL IVP SCH ×3 (05:09→20:57)
[2021-08-04] MEDS: ACETAMINOPHEN 325 MG TAB PO PRN (05:10)
[2021-08-04 05:28] LABS: ALBUMIN 2.4 g/dL (3.5-5.0); BILIRUBIN,TOTAL 0.3 mg/dL (0.2-1.0); CREATININE 2.6 mg/dL (0.5-1.5); POTASSIUM 5.7 mmol/L (3.5-5.1); THYROID STIMULATING HORMONE 1.35 uIU/mL (0.36-3.74); TOTAL PROTEIN, SERUM 6.3 g/dL (6.0-8.3)
[2021-08-04] MEDS: IPRATROPIUM/ALBUTEROL SULFATE 3 ML SOLUTION IH SCH ×4 (06:13→23:27)
[2021-08-04] MEDS: SODIUM CL 4MEQ/ML 30ML 154 MEQ in DEXTROSE 10%-WATER 961.5 ML IV SCH (06:43)
[2021-08-04] MEDS ORDERED: SODIUM CHLORIDE 1,000 MG TAB PO SCH (07:30)
[2021-08-04 08:09] VITALS: BP 134/74
[2021-08-04] MEDS: PANTOPRAZOLE 40 MG/VIAL IVP SCH (08:55)
[2021-08-04] MEDS: BENZONATATE 100 MG CAPSULE PO SCH ×3 (08:55→20:56)
[2021-08-04] MEDS: ASPIRIN 81 MG EC TAB PO SCH (08:56)
[2021-08-04] MEDS: ENOXAPARIN SODIUM 40 MG/0.4 ML SYRINGE SQ SCH ×2 (08:56→20:57)
[2021-08-04] MEDS ORDERED: HYDROXYZINE 25 MG TABLET PO PRN (11:00)
[2021-08-04] MEDS ORDERED: PROMETHAZINE HCL 25 MG TABLET PO PRN (11:00)
[2021-08-04 11:38] VITALS: BP 148/90
[2021-08-04] MEDS ORDERED: KAYEXALATE 15GM/60ML PO ONE (14:30)
[2021-08-04] MEDS: GABAPENTIN 100 MG CAPSULE PO SCH ×2 (14:34→20:56)
[2021-08-04] MEDS: INSULIN HUMULIN R 100 UNIT/ML 3ML SQ SCH ×2 (16:04→21:06)
[2021-08-04 16:20] VITALS: BP 153/94
[2021-08-04 17:29] LABS: APPEARANCE,URINE Clear (CLEAR); BILIRUBIN,URINE Negative (NEGATIVE); COLOR,URINE Yellow (YELLOW); GLUCOSE, URINE (UA) >=1000 mg/dL (NEGATIVE); KETONES,URINE Negative (NEGATIVE); LEUKOCYTE ESTERASE ,URINE Trace (NEGATIVE); NITRATE,URINE Negative (NEGATIVE); OCCULT BLOOD,URINE Moderate (NEGATIVE); PROTEIN,URINE 300 mg/dL (NEGATIVE); UROBILINOGEN,URINE 0.2 mg/dL (0.2-1.0)
[2021-08-04] MEDS: FUROSEMIDE 40MG VIAL IV SCH (17:41)
[2021-08-04 17:43] LABS: BACTERIA,URINE Few /HPF (None Seen); MUCUS,URINE Few LPF (None Seen); SQUAMOUS EPITHELIAL CELL,UR Few /HPF (0-2)
[2021-08-04 20:39] VITALS: BP 157/86
[2021-08-04] MEDS: (Duloxetine HCl 20 MG) PO SCH (20:56)
[2021-08-04] MEDS: TRAZODONE HCL 100 MG TABLET PO SCH (20:56)
[2021-08-04] MEDS ORDERED: FUROSEMIDE 20 MG TABLET PO SCH (21:00)
[2021-08-04] MEDS ORDERED: EPOETIN ALFA-EPBX (ESRD) 10,000 UNIT/ML VIAL SQ SCH (21:00)
[2021-08-04] MEDS ORDERED: NON-FORMULARY MEDICATION 1 EACH (Trazodone HCl 300 MG) PO SCH (21:00)
[2021-08-04 23:29] VITALS: BP 141/76
[2021-08-05] MEDS: SODIUM CL 4MEQ/ML 30ML 154 MEQ in DEXTROSE 10%-WATER 961.5 ML IV SCH ×2 (02:43→19:10)
[2021-08-05 04:10] VITALS: BP 150/72
[2021-08-05] MEDS: FUROSEMIDE 40MG VIAL IV SCH (04:18)
[2021-08-05] MEDS: SOLU-MEDROL 40MG VIAL IVP SCH ×3 (04:21→19:54)
[2021-08-05 04:38] LABS: HEMATOCRIT 24.7 % (36-48); MEAN CORPUSCULAR HEMOGLOBIN 29.3 pg (27.0-33.0); MEAN CORPUSCULAR HGB CONC 32.4 g/dL (32.0-36.0); MEAN CORPUSCULAR VOLUME 90.5 fL (79-99); RED BLOOD CELL COUNT(AUTO) 2.73 MIL/uL (4.00-5.50); RED CELL DISTRIBUTION WIDTH 13.3 % (11.0-15.5); WHITE BLOOD COUNT (AUTO) 5.2 K/uL (4.8-10.8)
[2021-08-05 04:48] LABS: % IRON SATURATION 12.8 % (22-44)
[2021-08-05 04:59] LABS: CREATININE 2.6 mg/dL (0.5-1.5); PHOSPHORUS 4.3 mg/dL (2.5-4.9); POTASSIUM 5.3 mmol/L (3.5-5.1)
[2021-08-05] MEDS ORDERED: INSULIN HUMULIN R 100 UNIT/ML 3ML IV SCH (05:30)
[2021-08-05] MEDS: IPRATROPIUM/ALBUTEROL SULFATE 3 ML SOLUTION IH SCH ×4 (06:17→23:28)
[2021-08-05] MEDS: LEVOTHYROXINE 50 MCG TABLET PO SCH (06:34)
[2021-08-05] MEDS: INSULIN HUMULIN R 100 UNIT/ML 3ML SQ SCH ×4 (06:40→20:06)
[2021-08-05 07:32] VITALS: BP 163/97
[2021-08-05] MEDS ORDERED: NON-FORMULARY MEDICATION 1 EACH (Metoprolol Succinate 25 MG) PO SCH (09:00)
[2021-08-05] MEDS ORDERED: HYDROCHLOROTHIAZIDE 25 MG TABLET PO SCH (09:00)
[2021-08-05] MEDS ORDERED: LISINOPRIL 20 MG TABLET PO SCH (09:00)
[2021-08-05] MEDS ORDERED: NON-FORMULARY MEDICATION 1 EACH (Levothyroxine Sodium (Levothyroxine) 50 MCG) PO SCH (09:00)
[2021-08-05] MEDS: Vitamin B Complex/Vit C/Folic Acid PO SCH (09:14)
[2021-08-05] MEDS: METOPROLOL SUCCINATE 50 MG TAB.SR.24H PO SCH (09:14)
[2021-08-05] MEDS: BENZONATATE 100 MG CAPSULE PO SCH ×3 (09:15→19:53)
[2021-08-05] MEDS: ENOXAPARIN SODIUM 40 MG/0.4 ML SYRINGE SQ SCH ×2 (09:15→19:53)
[2021-08-05] MEDS: FAMOTIDINE 20MG TAB PO SCH (09:15)
[2021-08-05] MEDS: GABAPENTIN 100 MG CAPSULE PO SCH ×3 (09:15→19:52)
[2021-08-05] MEDS: ASPIRIN 81 MG EC TAB PO SCH (09:15)
[2021-08-05] MEDS: ATORVASTATIN 20 MG TABLET PO SCH (09:15)
[2021-08-05] MEDS: FENOFIBRATE NANOCRYSTALLIZED 145 MG TAB PO SCH (09:15)
[2021-08-05] MEDS ORDERED: KAYEXALATE 15GM/60ML PO SCH ×2 (09:30→12:00)
[2021-08-05 11:09] VITALS: BP 161/97
[2021-08-05] MEDS: INSULIN GLARGINE 100 UNITS/ML 10 ML VIAL SQ SCH ×2 (11:18→20:06)
[2021-08-05 15:56] VITALS: BP 152/92
[2021-08-05] MEDS: CEFEPIME HCL 2 GM VIAL IVP SCH (16:21)
[2021-08-05] MEDS: TRAZODONE HCL 100 MG TABLET PO SCH (19:53)
[2021-08-05] MEDS: (Duloxetine HCl 20 MG) PO SCH (19:53)
[2021-08-05 20:02] VITALS: BP 148/83
[2021-08-05] MEDS: ONDANSETRON 4MG INJ IV PRN (20:48)
[2021-08-05] MEDS ORDERED: LEVOFLOXACIN 500 MG/D5W 100 ML 100 ML IV SCH (21:00)
[2021-08-05 23:21] VITALS: BP 132/86
[2021-08-06] MEDS: ACETAMINOPHEN 325 MG TAB PO PRN (01:24)
[2021-08-06] MEDS: CEFEPIME HCL 2 GM VIAL IVP SCH ×2 (03:23→14:52)
[2021-08-06 03:58] VITALS: BP 136/83
[2021-08-06] MEDS: SOLU-MEDROL 40MG VIAL IVP SCH ×3 (04:08→20:58)
[2021-08-06 05:07] LABS: HEMATOCRIT 23.9 % (36-48); MEAN CORPUSCULAR HEMOGLOBIN 29.6 pg (27.0-33.0); MEAN CORPUSCULAR HGB CONC 33.1 g/dL (32.0-36.0); MEAN CORPUSCULAR VOLUME 89.5 fL (79-99); PLATELET COUNT (AUTO) 236 K/uL (130-400); RED BLOOD CELL COUNT(AUTO) 2.67 MIL/uL (4.00-5.50); RED CELL DISTRIBUTION WIDTH 13.4 % (11.0-15.5); WHITE BLOOD COUNT (AUTO) 9.1 K/uL (4.8-10.8)
[2021-08-06 05:23] LABS: ALBUMIN 2.3 g/dL (3.5-5.0); BILIRUBIN,TOTAL 0.2 mg/dL (0.2-1.0); CREATININE 2.4 mg/dL (0.5-1.5); POTASSIUM 4.4 mmol/L (3.5-5.1); TOTAL PROTEIN, SERUM 5.9 g/dL (6.0-8.3)
[2021-08-06 06:04] LABS: BAND NEUTROPHILS % (MANUAL) 15 % (0-2); LYMPHOCYTES % (MANUAL) 13 % (22-44); MONOCYTES % (MANUAL) 2 % (2-9); SEGMENTED NEUTROPHILS % 70 % (40-70)
[2021-08-06 06:05] LABS: MAN.DIFF COMMENT-IMPRESSION MANUAL DIFFERENTIAL; PLATELET MORPHOLOGY COMMENT ADEQUATE
[2021-08-06] MEDS: IPRATROPIUM/ALBUTEROL SULFATE 3 ML SOLUTION IH SCH ×4 (06:20→23:29)
[2021-08-06] MEDS: INSULIN HUMULIN R 100 UNIT/ML 3ML SQ SCH ×4 (06:21→21:03)
[2021-08-06] MEDS: LEVOTHYROXINE 50 MCG TABLET PO SCH (06:24)
[2021-08-06] MEDS: INSULIN GLARGINE 100 UNITS/ML 10 ML VIAL SQ SCH ×2 (06:25→21:04)
[2021-08-06 07:49] VITALS: BP 148/86
[2021-08-06] MEDS ORDERED: IRON SUCROSE COMPLEX 100 MG in 0.9%NACL 50ML 50 ML IV SCH (09:00)
[2021-08-06] MEDS: ASPIRIN 81 MG EC TAB PO SCH (10:00)
[2021-08-06] MEDS: GABAPENTIN 100 MG CAPSULE PO SCH ×3 (10:00→20:58)
[2021-08-06] MEDS: IRON SUCROSE COMPLEX 100 MG/5 ML VIAL IVP SCH (10:00)
[2021-08-06] MEDS: METOPROLOL SUCCINATE 50 MG TAB.SR.24H PO SCH (10:00)
[2021-08-06] MEDS: Vitamin B Complex/Vit C/Folic Acid PO SCH (10:02)
[2021-08-06] MEDS: FAMOTIDINE 20MG TAB PO SCH (10:02)
[2021-08-06] MEDS: ATORVASTATIN 20 MG TABLET PO SCH (10:02)
[2021-08-06] MEDS: FENOFIBRATE NANOCRYSTALLIZED 145 MG TAB PO SCH (10:06)
[2021-08-06] MEDS: BENZONATATE 100 MG CAPSULE PO SCH ×3 (10:06→20:58)
[2021-08-06] MEDS: ENOXAPARIN SODIUM 40 MG/0.4 ML SYRINGE SQ SCH ×2 (10:07→20:59)
[2021-08-06 11:33] VITALS: BP 137/88
[2021-08-06 16:27] VITALS: BP 134/71
[2021-08-06] MEDS: SODIUM CL 4MEQ/ML 30ML 154 MEQ in DEXTROSE 10%-WATER 961.5 ML IV SCH (18:43)
[2021-08-06 19:20] VITALS: BP 157/91
[2021-08-06] MEDS: TRAZODONE HCL 100 MG TABLET PO SCH (20:58)
[2021-08-06] MEDS: HONEY 1 APPL/ML TUBE TP SCH (20:58)
[2021-08-06] MEDS: (Duloxetine HCl 20 MG) PO SCH (20:59)
[2021-08-06 23:21] VITALS: BP 151/84
[2021-08-07] MEDS: CEFEPIME HCL 2 GM VIAL IVP SCH ×2 (03:41→15:41)
[2021-08-07 03:50] VITALS: BP 148/79
[2021-08-07 04:16] LABS: MEAN CORPUSCULAR HGB CONC 32.8 g/dL (32.0-36.0); MEAN CORPUSCULAR VOLUME 88.3 fL (79-99); RED BLOOD CELL COUNT(AUTO) 2.83 MIL/uL (4.00-5.50); RED CELL DISTRIBUTION WIDTH 13.3 % (11.0-15.5); WHITE BLOOD COUNT (AUTO) 9.9 K/uL (4.8-10.8)
[2021-08-07 04:29] LABS: ALBUMIN 2.3 g/dL (3.5-5.0); BILIRUBIN,TOTAL 0.2 mg/dL (0.2-1.0); CREATININE 2.2 mg/dL (0.5-1.5); POTASSIUM 4.4 mmol/L (3.5-5.1)
[2021-08-07] MEDS: SOLU-MEDROL 40MG VIAL IVP SCH ×2 (05:00→15:41)
[2021-08-07] MEDS: LEVOTHYROXINE 50 MCG TABLET PO SCH (05:50)
[2021-08-07] MEDS: INSULIN HUMULIN R 100 UNIT/ML 3ML SQ SCH ×3 (06:05→17:30)
[2021-08-07] MEDS: IPRATROPIUM/ALBUTEROL SULFATE 3 ML SOLUTION IH SCH ×3 (06:26→17:20)
[2021-08-07] MEDS: INSULIN GLARGINE 100 UNITS/ML 10 ML VIAL SQ SCH (06:28)
[2021-08-07 08:21] VITALS: BP 152/91
[2021-08-07] MEDS: IRON SUCROSE COMPLEX 100 MG/5 ML VIAL IVP SCH (10:38)
[2021-08-07] MEDS: Vitamin B Complex/Vit C/Folic Acid PO SCH (10:39)
[2021-08-07] MEDS: ENOXAPARIN SODIUM 40 MG/0.4 ML SYRINGE SQ SCH (10:39)
[2021-08-07] MEDS: METOPROLOL SUCCINATE 50 MG TAB.SR.24H PO SCH (10:40)
[2021-08-07] MEDS: ATORVASTATIN 20 MG TABLET PO SCH (10:40)
[2021-08-07] MEDS: HONEY 1 APPL/ML TUBE TP SCH (10:40)
[2021-08-07] MEDS: FENOFIBRATE NANOCRYSTALLIZED 145 MG TAB PO SCH (10:40)
[2021-08-07] MEDS: ASPIRIN 81 MG EC TAB PO SCH (10:40)
[2021-08-07] MEDS: FAMOTIDINE 20MG TAB PO SCH (10:40)
[2021-08-07] MEDS: BENZONATATE 100 MG CAPSULE PO SCH ×2 (10:46→15:41)
[2021-08-07] MEDS: GABAPENTIN 100 MG CAPSULE PO SCH ×2 (10:46→15:41)
[2021-08-07 11:06] VITALS: BP 143/82
[2021-08-07] MEDS ORDERED: INSULIN GLARGINE 100 UNITS/ML 10 ML VIAL SQ SCH ×2 (14:00→21:00)
[2021-08-07] MEDS: SODIUM CL 4MEQ/ML 30ML 154 MEQ in DEXTROSE 10%-WATER 961.5 ML IV SCH (14:43)
[2021-08-07 15:40] VITALS: BP 126/78
[2021-08-07] MEDS ORDERED: LEVO500T90 PO (16:45)
[2021-08-07] MEDS ORDERED: PRED20TA3 PO (16:45)
[2021-08-07] MEDS ORDERED: IRON SUCROSE COMPLEX 100 MG/5 ML VIAL IVP SCH (17:00)
[2021-08-08] MEDS ORDERED: SODIUM CHLORIDE 1,000 MG TAB PO SCH (09:00)
[2021-08-08] MEDS ORDERED: IRON SUCROSE COMPLEX 100 MG in 0.9%NACL 50ML 50 ML IV SCH (17:00)
== END 2021-08-07 18:48 | disposition home or self-care (01) | DRG 193 ==
LOC: EDH 14:56 → EDHIP 17:28 → OBSVTOIN 17:28 → 4AH 08-04 04:12
PROVIDERS: ADMIT Internal Medicine Critical Care Medicine; ATTEND Internal Medicine Critical Care Medicine
DX: J18.9 Pneumonia, unspecified organism (principal); I50.33 Acute on chronic diastolic (congestive) heart failure; I13.0 Hypertensive heart and chronic kidney disease with heart failure and stage 1 through stage 4 chronic kidney disease, or unspecified chronic kidney disease; N18.4 Chronic kidney disease, stage 4 (severe); E87.1 Hypo-osmolality and hyponatremia; I42.9 Cardiomyopathy, unspecified; N39.0 Urinary tract infection, site not specified; N17.9 Acute kidney failure, unspecified; I24.9 Acute ischemic heart disease, unspecified; I31.3 Pericardial effusion (noninflammatory); Z20.822 Contact with and (suspected) exposure to COVID-19; E11.51 Type 2 diabetes mellitus with diabetic peripheral angiopathy without gangrene; D63.1 Anemia in chronic kidney disease; E11.22 Type 2 diabetes mellitus with diabetic chronic kidney disease; E03.9 Hypothyroidism, unspecified; E66.9 Obesity, unspecified; Z88.8 Allergy status to other drugs, medicaments and biological substances; Z89.512 Acquired absence of left leg below knee; F32.A Depression, unspecified; F41.9 Anxiety disorder, unspecified; Z87.01 Personal history of pneumonia (recurrent); Z82.49 Family history of ischemic heart disease and other diseases of the circulatory system; Z83.3 Family history of diabetes mellitus; E78.00 Pure hypercholesterolemia, unspecified; I25.10 Atherosclerotic heart disease of native coronary artery without angina pectoris; Z90.710 Acquired absence of both cervix and uterus; E11.621 Type 2 diabetes mellitus with foot ulcer; L97.519 Non-pressure chronic ulcer of other part of right foot with unspecified severity; E87.5 Hyperkalemia; E11.649 Type 2 diabetes mellitus with hypoglycemia without coma; E78.5 Hyperlipidemia, unspecified; Z79.899 Other long term (current) drug therapy; Z68.36 Body mass index [BMI] 36.0-36.9, adult
CPT/HCPCS: 36415; 71045; 71250; 80048; 80053; 80305; 81001; 82550; 82607; 82728; 82947; 82948; 83036; 83540; 83550; 83880; 84100; 84443; 84484; 85025; 85027; 85378; 87635; 87804; 93005; 93970; 94640; 94664; C9113; C9803; G0378; J0692; J0696; J1650; J1756; J1815; J1940; J1956; J2405; J2920; J3490; J7131

== ENCOUNTER → 2022-05-31 | Outpatient (CLI) | payer OTHER, MEDICARE ==
[~2022-05-31] MED LIST changes: -ACET-3194 PO; +ASPI-891 PO; -ATOR20TA65 PO; +ATOR40TA69 PO; +BENZ0.5T43 PO; +CARV12.580 PO; +DOCU-133 PO; -DOXY100T2 PO; -DULO20CA18 PO; +DULO30CA52 PO; -ERGO500093 PO; +ESCI-8 PO; +FERR324T4 PO; -FURO20TA6 PO; +GABA300S PO; -HYDR-3421 PO; -INSU100I35 SQ; +Isosorbide Mono 30MG Sr Tab PO; -LEVO50CA4 PO; -LISI20TA24 PO; -LORA-192 PO; -METF-446 PO; +METF-891 PO; +NITR100C PO; -PRED20B PO; +SIMV-43 PO; +TORS20TA4 PO; +TRAZ-185 PO; -TRAZ300T2 PO
== END | disposition home or self-care (01) ==
LOC: SHCH 08:42
PROVIDERS: ATTEND Internal Medicine Cardiovascular Disease
DX: I08.0 Rheumatic disorders of both mitral and aortic valves (principal); I73.9 Peripheral vascular disease, unspecified; E11.51 Type 2 diabetes mellitus with diabetic peripheral angiopathy without gangrene; E78.5 Hyperlipidemia, unspecified
CPT/HCPCS: 93306

== ENCOUNTER 2022-06-25 11:32 | Emergency (ER) | payer OTHER, MEDICARE ==
[~2022-06-25] VITALS: Ht 160 cm; Wt 90.7 kg
[2022-06-25 12:35] LABS: HEMATOCRIT 25.2 % (36-48); MEAN CORPUSCULAR HGB CONC 31.3 g/dL (32.0-36.0); MEAN CORPUSCULAR VOLUME 95.8 fL (79-99); RED BLOOD CELL COUNT(AUTO) 2.63 MIL/uL (4.00-5.50); RED CELL DISTRIBUTION WIDTH 16.7 % (11.0-15.5); WHITE BLOOD COUNT (AUTO) 4.1 K/uL (4.8-10.8)
[2022-06-25 12:48] LABS: POTASSIUM 5.1 mmol/L (3.5-5.1)
[2022-06-25 12:53] LABS: ALBUMIN 2.8 g/dL (3.5-5.0); TOTAL PROTEIN, SERUM 6.4 g/dL (6.0-8.3)
[2022-06-25 13:07] VITALS: BP 159/89
== END 2022-06-25 14:00 | disposition home or self-care (01) ==
LOC: EDH 11:32
DX: E11.649 Type 2 diabetes mellitus with hypoglycemia without coma (principal); F32.A Depression, unspecified; Z79.82 Long term (current) use of aspirin; Z79.84 Long term (current) use of oral hypoglycemic drugs; Z79.899 Other long term (current) drug therapy; Z88.2 Allergy status to sulfonamides; Z88.5 Allergy status to narcotic agent; Z88.8 Allergy status to other drugs, medicaments and biological substances; Z90.710 Acquired absence of both cervix and uterus
CPT/HCPCS: 36415; 80053; 82948; 85027

== ENCOUNTER → 2022-07-12 | Outpatient (CLI) | payer OTHER, MEDICARE ==
[2022-07-12 15:08] LABS: BASOPHILS % (AUTO) 0.8 % (0.0-5.0); EOSINOPHILS % (AUTO) 8.4 % (0.0-8.0); HEMATOCRIT 23.4 % (36-48); LYMPHOCYTES % (AUTO) 18.4 % (21.0-51.0); MEAN CORPUSCULAR HEMOGLOBIN 30.7 pg (27.0-33.0); MEAN CORPUSCULAR HGB CONC 31.2 g/dL (32.0-36.0); MEAN CORPUSCULAR VOLUME 98.3 fL (79-99); MONOCYTES % (AUTO) 8.1 % (3.0-13.0); PLATELET COUNT (AUTO) 251 K/uL (130-400); RED BLOOD CELL COUNT(AUTO) 2.38 MIL/uL (4.00-5.50); RED CELL DISTRIBUTION WIDTH 19.8 % (11.0-15.5); WHITE BLOOD COUNT (AUTO) 3.8 K/uL (4.8-10.8)
[2022-07-12 15:43] LABS: % IRON SATURATION 19.4 % (22-44)
[2022-07-12 16:22] LABS: ALBUMIN 3.1 g/dL (3.5-5.0); CREATININE 4.3 mg/dL (0.5-1.5); PHOSPHORUS 5.8 mg/dL (2.5-4.9); POTASSIUM 3.8 mmol/L (3.5-5.1)
== END | disposition home or self-care (01) ==
LOC: RAH 13:47
PROVIDERS: ATTEND Family Medicine
DX: Z12.31 Encounter for screening mammogram for malignant neoplasm of breast (principal); N63.21 Unspecified lump in the left breast, upper outer quadrant; N18.1 Chronic kidney disease, stage 1; D52.9 Folate deficiency anemia, unspecified; E21.5 Disorder of parathyroid gland, unspecified
CPT/HCPCS: 36415; 77067; 80069; 82607; 82728; 82746; 83540; 83550; 83970; 85025

== ENCOUNTER → 2022-08-18 | Outpatient (CLI) | payer OTHER, MEDICARE ==
[~2022-08-18] MED LIST changes: -GABA300S PO; +GABA300S3 PO
[2022-08-18 11:26] LABS: BASOPHILS % (AUTO) 0.7 % (0.0-5.0); EOSINOPHILS % (AUTO) 5.6 % (0.0-8.0); LYMPHOCYTES % (AUTO) 14.7 % (21.0-51.0); MEAN CORPUSCULAR HEMOGLOBIN 30.3 pg (27.0-33.0); MEAN CORPUSCULAR HGB CONC 30.7 g/dL (32.0-36.0); MEAN CORPUSCULAR VOLUME 98.6 fL (79-99); MONOCYTES % (AUTO) 12.9 % (3.0-13.0); NEUTROPHILS % (AUTO) 65.7 % (40.0-77.0); PLATELET COUNT (AUTO) 169 K/uL (130-400); RED BLOOD CELL COUNT(AUTO) 2.84 MIL/uL (4.00-5.50); RED CELL DISTRIBUTION WIDTH 16.5 % (11.0-15.5); WHITE BLOOD COUNT (AUTO) 5.4 K/uL (4.8-10.8)
[2022-08-18 11:44] LABS: ALBUMIN 2.8 g/dL (3.5-5.0); CREATININE 3.1 mg/dL (0.5-1.5); PHOSPHORUS 4.3 mg/dL (2.5-4.9); POTASSIUM 3.6 mmol/L (3.5-5.1)
== END | disposition home or self-care (01) ==
LOC: LAB 10:50
PROVIDERS: ATTEND Internal Medicine Nephrology
DX: N18.1 Chronic kidney disease, stage 1 (principal); N18.9 Chronic kidney disease, unspecified
CPT/HCPCS: 36415; 80069; 85025

== ENCOUNTER 2022-08-23 09:56 | Emergency (ER) | payer OTHER, MEDICARE ==
[~2022-08-23] VITALS: Ht 170.2 cm; Wt 113.4 kg
[~2022-08-23 09:56] MED LIST changes: -BENZ0.5T43 PO; +BENZ0.5T6 PO
[2022-08-23] MEDS ORDERED: 0.9%NACL 1000ML 1,000 ML IV ONE (10:30)
[2022-08-23] MEDS ORDERED: DEXTROSE 50%-WATER 50 ML DISP.SYRIN IV ONE ×2 (10:37→11:00)
[2022-08-23 10:51] LABS: BASOPHILS % (AUTO) 0.6 % (0.0-5.0); EOSINOPHILS % (AUTO) 2.5 % (0.0-8.0); HEMATOCRIT 27.2 % (36-48); LYMPHOCYTES % (AUTO) 12.1 % (21.0-51.0); MEAN CORPUSCULAR HEMOGLOBIN 30.5 pg (27.0-33.0); MEAN CORPUSCULAR HGB CONC 31.6 g/dL (32.0-36.0); MEAN CORPUSCULAR VOLUME 96.5 fL (79-99); MONOCYTES % (AUTO) 18.3 % (3.0-13.0); NEUTROPHILS % (AUTO) 65.7 % (40.0-77.0); PLATELET COUNT (AUTO) 169 K/uL (130-400); RED BLOOD CELL COUNT(AUTO) 2.82 MIL/uL (4.00-5.50); RED CELL DISTRIBUTION WIDTH 15.8 % (11.0-15.5); WHITE BLOOD COUNT (AUTO) 3.6 K/uL (4.8-10.8)
[2022-08-23 11:03] LABS: CREATININE 3.4 mg/dL (0.5-1.5); POTASSIUM 3.8 mmol/L (3.5-5.1)
[2022-08-23 11:07] LABS: ALBUMIN 2.6 g/dL (3.5-5.0); TOTAL PROTEIN, SERUM 5.9 g/dL (6.0-8.3)
[2022-08-23 11:55] VITALS: BP 142/88
[2022-08-23] MEDS ORDERED: ONDANSETRON 4MG INJ ONE (12:09)
[2022-08-23 12:50] LABS: APPEARANCE,URINE CLEAR (CLEAR); BILIRUBIN,URINE NEGATIVE (NEGATIVE); COLOR,URINE LIGHT-YELLOW (YELLOW); GLUCOSE, URINE (UA) NEGATIVE (NEGATIVE); KETONES,URINE NEGATIVE (NEGATIVE); LEUKOCYTE ESTERASE ,URINE 250 Leu/uL (NEGATIVE); NITRATE,URINE NEGATIVE (NEGATIVE); PH,URINE 5.5 (5.0-8.0); PROTEIN,URINE 70 mg/dL (NEGATIVE); UROBILINOGEN,URINE 0.2 mg/dL (0.2-1.0)
[2022-08-23 12:54] LABS: BACTERIA,URINE None Seen /HPF (None Seen)
[2022-08-23 12:55] LABS: MUCUS,URINE Rare LPF (None Seen)
[2022-08-23 12:56] LABS: SQUAMOUS EPITHELIAL CELL,UR Rare /HPF (0-2)
[2022-08-23] MEDS ORDERED: CEFTRIAXONE 1G VIAL IV ONE (13:30)
== END 2022-08-23 16:22 | disposition home or self-care (01) ==
LOC: EDH 09:56
DX: E11.649 Type 2 diabetes mellitus with hypoglycemia without coma (principal); E78.00 Pure hypercholesterolemia, unspecified; F32.A Depression, unspecified; I10 Essential (primary) hypertension; K21.9 Gastro-esophageal reflux disease without esophagitis; Z79.82 Long term (current) use of aspirin; Z79.84 Long term (current) use of oral hypoglycemic drugs; Z79.899 Other long term (current) drug therapy; Z89.512 Acquired absence of left leg below knee; Z88.2 Allergy status to sulfonamides; Z88.5 Allergy status to narcotic agent; Z88.8 Allergy status to other drugs, medicaments and biological substances
CPT/HCPCS: 99285; 96374; 70450; 71045; 96361; 96375 ×2; 84484; 80053; 85025; 87088; 82948 ×5; 83605; 81001; 36415; 93005; J7070; J0696; J2405